=== PATIENT | male | born 1980 | race Caucasian/White ===

== ENCOUNTER 2025-04-25 16:24 | Inpatient (IN) ==
--- NOTE | 2025-04-25 17:25 | Emergency Department Note ---
Impression & Plan Fever and neutropenia, Neutropenia ED Provider Note NAME: CLAY [id number] MANSI AGE: 44 SEX: M : 1980 ARRIVES VIA: Walk-In INFORMANT: Patient, ED PROVIDER(S): Jose Geronimo DO CHIEF COMPLAINT: Fever HPI: The patient is a 44-year-old male who presented to the emergency department for an evaluation of low white blood cell count. The patient has a history of head neck cancer. He last received chemotherapy the beginning of the month. He had labs and it showed that he had a low white blood cell count. He presented to the emergency department for further evaluation. The patient does describe some dysphagia. He denies having any abdominal pain. He does describe some chest pain. ROS: See above HPI for pertinent positives & negatives. A total of 10 systems reviewed and were otherwise negative. PAST MEDICAL HISTORY: See Below PAST SURGICAL HISTORY: See Below FAMILY HISTORY: See Below SOCIAL HISTORY: See Below HOME MEDICATIONS: See Below ALLERGIES: See Below VITALS: See Below PHYSICAL EXAMINATION: GENERAL: Patient is awake alert in no acute distress patient is resting comfortably and showing no signs of anxiety EYES: The conjunctivae are clear. The pupils are round and reactive. EARS, NOSE, MOUTH AND THROAT: The nose is without any evidence of any deformity. Mucous membranes are moist. Tongue is midline. NECK: The neck is nontender and supple. RESPIRATORY: Normal respiratory effort is noted there is no evidence of wheezing rhonchi or rales CARDIOVASCULAR: Regular rate and rhythm noted there no murmurs rubs or gallops normal S1 normal S2. GASTROINTESTINAL: The abdomen is soft. Abdomen is nontender. MUSCULOSKELETAL/EXTREMITIES: There is no evidence of gross deformity full range of motion is noted in the hips and shoulders. SKIN: There is no obvious evidence of any rash. There are no petechiae, pallor or cyanosis noted. NEUROLOGIC: Patient is awake alert and oriented x3. MEDICAL DECISION MAKING: The patient is a 44-year-old male who presented to the emergency department for an evaluation of febrile illness. The patient has a history of head neck cancer which is being treated with chemotherapy. His last chemotherapy treatment was at the beginning of the month. The patient did have outpatient labs done and was sent to the emergency department because of his low white count. The patient was treated with IV antibiotics in the emergency department. He was reevaluated multiple times. The patient was not septic at my time of evaluation. Given the risks of neutropenia and fever I [facility] have agreed to evaluate the patient in the emergency department for further management and disposition. Triage Nursing notes reviewed. Prior medical records reviewed Vital Signs: reviewed and remarkable for no significant abnormalities Differential diagnosis: Viral syndrome, otitis, pharyngitis, pneumonia, influenza, meningitis, urinary tract infection, sepsis, bacteremia, as well as other pathologies. ER treatment provided: See below Diagnostics interpreted by me: ECG: EKG was obtained in the emergency department. My interpretation is normal sinus rhythm at 82 bpm. There is no ectopy. There is no acute ST segment abnormalities noted. No previous tracing was available. Cardiac Monitoring: An order was placed for continuous cardiac monitoring. The monitor shows a rate of 81 bpm with sinus rhythm. Laboratory studies: As stated above and show below. Imaging studies: See below. Radiographic imaging was reviewed by myself Consultation(s): I discussed this case with Dr. Engel who [facility]. Past Med/Surg History Problem List (Updated 04/25/25 @ 23:43 by Jose Geronimo DO) Fever and neutropenia (Acute) Neutropenia (Acute) Medical History Diabetes Hypertension 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 Social History Smoking Status: Never smoker Preferred Language: Yoruba Feels Safe at Home: Yes Allergies Allergies Allergy/AdvReac Type Severity Reaction Status Date / Time No Known Allergies Allergy Verified 04/25/25 17:40 Home Meds Home Medications Medication Instructions Recorded Confirmed acetaminophen 500 mg tablet 500 mg PO TID PRN Pain 01/14/25 04/25/25 (Tylenol Extra Strength) ascorbic acid (vitamin C) 500 mg 500 mg PO DAILY 01/14/25 04/25/25 tablet (Vitamin C) aspirin 81 mg tablet,delayed 81 mg PO DAILY 01/14/25 04/25/25 release atorvastatin 80 mg tablet 80 mg PO DAILY 01/14/25 04/25/25 clopidogrel 75 mg tablet (Plavix) 75 mg PO DAILY 01/14/25 04/25/25 cyanocobalamin (vitamin B-12) 500 500 mcg PO DAILY 01/14/25 04/25/25 mcg tablet (Vitamin B-12) glipizide 5 mg tablet 5 mg PO BID 01/14/25 04/25/25 losartan 100 mg tablet 100 mg PO DAILY 01/14/25 04/25/25 metformin 1,000 mg tablet 1,000 mg PO BID 01/14/25 04/25/25 metoprolol tartrate 50 mg tablet 50 mg PO BID 01/14/25 04/25/25 allopurinol 300 mg tablet 300 mg PO BID 04/25/25 04/25/25 loperamide 2 mg tablet (Diamode) 2 mg PO ONCE 04/25/25 04/25/25 omeprazole 20 mg capsule,delayed 20 mg PO BID 04/25/25 04/25/25 release ondansetron 4 mg disintegrating 8 mg PO BID PRN NAUSEA/VOMITING 04/25/25 04/25/25 tablet prednisone 20 mg tablet 100 mg PO DAILY PRN PER CANCER CARE 04/25/25 04/25/25 prochlorperazine maleate 10 mg 10 mg PO QID PRN NAUSEA/VOMITING 04/25/25 04/25/25 tablet (Compazine) Results & Data (ED) Vital Signs Vital Signs - 24 hr 04/25/25 16:27 04/25/25 17:30 04/25/25 17:34 Temperature 37.7 C H Temperature Source Oral Pulse Rate 92 H 84 96 H Pulse Rate [Apical] Pulse Rate from SpO2 Sensor Pulse Rhythm Regular Respiratory Rate 19 19 18 Respiratory Effort / Characteristics Respiratory Depth Respiratory Pattern Blood Pressure 147/89 H 124/87 Blood Pressure [Left Arm] Blood Pressure Mean 108 95 Blood Pressure Mean [Left Arm] Blood Pressure Position [Left Arm] Pulse Oximetry 98 98 Oxygen Delivery Method Room Air Room Air Sepsis Recent Fever Within 48 Hours No Sepsis New/Unexplained Change in Mental Status N/A Sepsis Action Taken by Nursing No Action Required 04/25/25 17:36 04/25/25 17:45 04/25/25 18:00 Temperature Temperature Source Pulse Rate 84 82 Pulse Rate [Apical] Pulse Rate from SpO2 Sensor 81 Pulse Rhythm Respiratory Rate 14 Respiratory Effort / Characteristics Respiratory Depth Respiratory Pattern Blood Pressure 128/86 127/86 Blood Pressure [Left Arm] Blood Pressure Mean 98 99 Blood Pressure Mean [Left Arm] Blood Pressure Position [Left Arm] Pulse Oximetry 94 Oxygen Delivery Method Room Air Sepsis Recent Fever Within 48 Hours Sepsis New/Unexplained Change in Mental Status Sepsis Action Taken by Nursing 04/25/25 18:15 04/25/25 18:30 04/25/25 19:15 Temperature Temperature Source Pulse Rate 80 80 Pulse Rate [Apical] 81 Pulse Rate from SpO2 Sensor 79 82 Pulse Rhythm Respiratory Rate 17 19 20 Respiratory Effort / Characteristics Non-Labored Spontaneous Respiratory Depth Normal Respiratory Pattern Regular Blood Pressure 130/84 132/97 Blood Pressure [Left Arm] 134/86 Blood Pressure Mean 101 107 Blood Pressure Mean [Left Arm] 102 Blood Pressure Position [Left Arm] Semi-fowlers Pulse Oximetry 99 100 97 Oxygen Delivery Method Room Air Room Air Room Air Sepsis Recent Fever Within 48 Hours Sepsis New/Unexplained Change in Mental Status Sepsis Action Taken by Longterm Medications Current Medication List: was personally reviewed by me Laboratory Data Attestation: I reviewed the patient's lab results. 04/25/25 17:44 04/25/25 17:44 Lab Results 04/25/25 04/25/25 Range/Units 17:44 17:50 WBC 1.25 L (4.8-10.8) K/ul RBC 3.42 L (4.70-6.10) M/uL Hgb 10.7 L (14.0-18.0) g/dl Hct 31.2 L (42.0-52.0) % MCV 91.2 (80.0-100.0) fL MCH 31.3 (25.0-34.0) pg MCHC 34.3 (32.0-36.0) g/dL RDW Std Deviation 55.4 H (36.4-46.3) fL RDW Coeff of Marguerite 16.8 H (11.5-14.5) % Plt Count 243 (130-400) K/uL MPV 9.8 (9.4-12.4) fL Immature Gran % (Auto) 0.0 % Neut % (Auto) 19.2 % Lymph % (Auto) 30.4 % Letcher % (Auto) 48.0 % Eos % (Auto) 1.6 % Baso % (Auto) 0.8 % Neut # (Auto) 0.24 L* (1.40-6.50) K/uL Lymph # (Auto) 0.38 L (1.20-3.40) K/uL Letcher # (Auto) 0.60 H (0.11-0.59) K/uL Eos # (Auto) 0.02 (0.00-0.50) K/uL Baso # (Auto) 0.01 (0.00-0.20) K/uL Immature Gran # (Auto) 0.00 L (0.01-0.20) K/uL PT 10.6 (9.0-12.0) Seconds INR 1.0 (0.9-1.1) APTT 30 (21-31) Seconds PTT Ratio 1.1 Sodium 134 L (136-145) mmol/L Potassium 3.5 (3.5-5.1) mmol/L Chloride 99 (98-107) mmol/L Carbon Dioxide 27 (21-32) mmol/L Anion Gap 8 (3-11) BUN 14 (6-23) mg/dl Creatinine 0.77 (0.6-1.4) mg/dl Est Cr Clr Drug Dosing 152.8 ml/min eGFR 112.51 BUN/Creatinine Ratio 18.2 (10-20) Glucose 126 H (70-99(Fasting)) mg/dl Lactate 1.3 (0.4-2.0) mmol/L Calcium 9.1 (8.6-10.3) mg/dl Magnesium 1.6 L (1.7-2.4) mg/dl Total Bilirubin 0.5 (0.2-1.0) mg/dl Direct Bilirubin 0.0 (0-0.2) mg/dl AST 26 (13-39) U/L ALT 24 (7-52) U/L Alkaline Phosphatase 82 (34-104) U/L Troponin I High Sens 10.2 (0-20) pg/ml Total Protein 8.3 (6.0-8.3) gm/dl Albumin 3.9 (3.4-5.0) gm/dl Procalcitonin 0.07 (0-0.5) ng/ml SARS-CoV-2 (PCR) NEGATIVE (Negative) Influenza Type A (PCR) Negative (Neg) Influenza Type B (PCR) Negative (Neg) RSV (RT-PCR) Negative (Neg) Administered Medications Allopurinol (Allopurinol 300 Mg Tab) 300 mg PO BID YOLETTE Stop: 05/25/25 22:02 Last Admin: 06/21/25 23:33 Dose: 300 mg Documented By: MORRIS Heparin Sodium (Porcine) (Heparin Sod 5,000 Unit/0.5 Ml Vial) 5,000 units SQ Q8 YOLETTE Stop: 05/25/25 21:59 Last Admin: 04/25/25 23:40 Dose: Not Given Documented By: MORRIS Pantoprazole Sodium (Protonix) 40 mg in 10 mls @ 5 mls/min IV BID YOLETTE Stop: 05/25/25 22:02 Last Admin: 04/25/25 23:32 Dose: 5 mls/min Documented By: MORRIS Insulin Glargine (Lantus Per Unit Charge) 10 units SQ BID YOLETTE Stop: 05/25/25 22:02 Last Admin: 04/25/25 22:50 Dose: Not Given Documented By: MORRIS Lidocaine HCl (Lidocaine Viscous 2% 15 Ml Udc) 15 ml MT Q8H YOLETTE Stop: 05/25/25 20:14 Last Admin: 04/25/25 22:45 Dose: 15 ml Documented By: MORRIS Metoprolol Tartrate (Metoprolol Tartrate 50 Mg Tab) 50 mg PO BID YOLETTE Stop: 05/25/25 22:02 Last Admin: 04/25/25 23:33 Dose: 50 mg Documented By: MORRIS Nystatin (Nystatin 500,000 Unit Tab) 500,000 units PO QID YOLETTE Stop: 05/25/25 20:59 Last Admin: 04/25/25 22:45 Dose: 500,000 units Documented By: MORRIS Discontinued Medications Al Hydrox/Mg Hydrox/Simethicone (Aluminum/Magnesium Susp 30 Ml Udc) 30 ml PO NOW STA Stop: 04/25/25 17:08 Last Admin: 04/25/25 17:53 Dose: 30 ml Documented By: TESS Sodium Chloride (Nss) 1,000 mls @ 999 mls/hr IV .Q1H1M ONE Stop: 04/25/25 18:07 Last Infusion: 04/25/25 18:58 Dose: Infused Documented By: Admin: 04/25/25 17:52 Dose: 999 mls/hr Documented By: TESS Cefepime HCl (Maxipime 2000mg) 2,000 mg in 20 mls @ 5 mls/min IV NOW STA; Protocol Stop: 04/25/25 18:08 Last Admin: 04/25/25 18:26 Dose: 5 mls/min Documented By: TESS Vancomycin HCl 2,250 mg/ (Sodium Chloride) 545 mls @ 200 mls/hr IV NOW ONE Stop: 04/25/25 22:44 Last Infusion: 04/25/25 23:25 Dose: 0 mls/hr Documented By: Admin: 04/25/25 21:06 Dose: 200 mls/hr Documented By: MARY Piperacillin Sod/Tazobactam Sod (Zosyn) 4.5 gm in 100 mls @ 200 mls/hr IV NOW STA; Protocol Stop: 04/25/25 20:48 Last Infusion: 04/25/25 23:25 Dose: Infused Documented By: Admin: 04/25/25 22:45 Dose: 200 mls/hr Documented By: MORRIS Ioversol (Optiray 320 100ml) 92 ml IV ONCE ONE Stop: 04/25/25 20:05 Last Admin: 04/25/25 20:04 Dose: 92 ml Documented By: FLETCHER Imaging Data Attestation: I personally reviewed and interpreted this imaging study as follows: My Impression: 1 view chest x-ray was obtained in the emergency department. My interpretation is no definite infiltrate or free air, final report below. Radiologist's Impression: Chest X-Ray 04/25/25 17:07 Exam: Portable chest. History: Sepsis. Comparison: Scalp view from CT dated December 26, 2024 Findings: Right chest port catheter. There is a nodular density projecting over the peripheral superior lateral aspect of the right lung field. Suspect something outside the patient. Cardiomediastinal silhouette is within normal limits. Pulmonary vasculature is within normal limits. Prominent nonspecific perihilar and infrahilar interstitial markings. No consolidation or appreciated pleural disease. Impression: 1.Nodular density projecting over the right superior lateral lung field questionably representing something outside the patient. Correlate with clinical data. Pulmonary nodule cannot be excluded on the single view exam. 2. Otherwise no acute process. Electronically signed by Eric Ludwig 04-25-2025 6:21 PM KUB X-Ray 04/25/25 17:07 Exam: KUB. History: Abdominal pain. Comparison:None. Findings: Likely button artifact projecting over the midline lower pelvis. Upper abdomen not included on this exam. Calcification projecting over the left abdomen. Small left renal calculus not excluded. Likely pelvic phleboliths. Impression: Question inferior left renal pole calculus. No appreciated acute process. Electronically signed by Eric Ludwig 04-25-2025 6:[address] 04/25/25 19:12 Exam(s): CT CHEST Without Contrast EXAM: CT Chest Without Intravenous Contrast CLINICAL HISTORY: Reason for exam: RULE OUT MASS. TECHNIQUE: Axial computed tomography images of the chest without intravenous contrast. CTDI is 21 mGy and DLP is 732 mGy-cm. Automated exposure control was utilized for the study. A dose lowering technique was utilized adhering to the principles of ALARA. COMPARISON: 12/26/[address] FINDINGS: Lungs: No consolidation or interstitial edema. No suspicious lesion. Pleural space: No pleural effusion or pneumothorax. Heart: Unremarkable. Bones/joints: No acute findings. Soft tissues: Previously visualized soft tissue mass in the left supraclavicular area measures 2.3 x 1.5 cm (series 2 image 1), previously 8.0 x 0.0 cm. Vasculature: Unremarkable. Lymph nodes: No adenopathy.. Tubes, lines and devices: Port-A-Cath in place. IMPRESSION: Previously visualized soft tissue mass in the left supraclavicular area measures 2.3 x 1.5 cm, previously 8.0 x 0.0 cm. Electronically signed by: Candelario Akers MD 04/25/25 20:37 PM Discharge Plan Visit Data Chief Complaint: Abnormal Labs/Diagnostic Testing Stated Complaint: LOW WBC COUNT ED Provider: Jose Geronimo Discharge Problem: Fever and neutropenia, Neutropenia Patient Disposition: Admitted As Inpatient Condition: Fair Discharge Instructions Interventions: ED Discharge Assessment Last Done: 04/25/25 21:34
[2025-04-25] MEDS: SODIUM CHLORIDE 0.9% 1,000 ML IV ONE (17:52)
[2025-04-25] MEDS: ALUMINUM/MAGNESIUM SUSP 30 ML UDC PO STA (17:53)
[2025-04-25 18:03] LABS: Hematocrit (blood only) 31.2 % (42.0-52.0); Hemoglobin 10.7 g/dl (14.0-18.0); Mean Corpuscular Hemoglobin 31.3 pg (25.0-34.0); Mean Corpuscular Hgb Conc 34.3 g/dL (32.0-36.0); Mean Corpuscular Volume 91.2 fL (80.0-100.0); Mean Platelet Volume 9.8 fL (9.4-12.4); Platelet Count 243 K/uL (130-400); RDW Coefficient of Variation 16.8 % (11.5-14.5); RDW Standard Deviation 55.4 fL (36.4-46.3); Red Blood Count 3.42 M/uL (4.70-6.10); White Blood Count 1.25 K/ul (4.8-10.8)
--- NOTE | 2025-04-25 18:22 | XRay Report ---
Exam: Portable chest. History: Sepsis. Comparison: Scalp view from CT dated December 26, 2024 Findings: Right chest port catheter. There is a nodular density projecting over the peripheral superior lateral aspect of the right lung field. Suspect something outside the patient. Cardiomediastinal silhouette is within normal limits. Pulmonary vasculature is within normal limits. Prominent nonspecific perihilar and infrahilar interstitial markings. No consolidation or appreciated pleural disease. Impression: 1.Nodular density projecting over the right superior lateral lung field questionably representing something outside the patient. Correlate with clinical data. Pulmonary nodule cannot be excluded on the single view exam. 2. Otherwise no acute process. Electronically signed by Eric Ludwig 04-25-2025 6:21 PM
[2025-04-25 18:24] LABS: Albumin Level 3.9 gm/dl (3.4-5.0); BUN Creatinine Ratio 18.2 (10-20); Bilirubin,Total 0.5 mg/dl (0.2-1.0); Calcium 9.1 mg/dl (8.6-10.3); Creatinine Clr Calc Pharmacy 152.8 ml/min; Magnesium 1.6 mg/dl (1.7-2.4); Potassium 3.5 mmol/L (3.5-5.1); Total Protein 8.3 gm/dl (6.0-8.3)
--- NOTE | 2025-04-25 18:25 | XRay Report ---
Exam: KUB. History: Abdominal pain. Comparison:None. Findings: Likely button artifact projecting over the midline lower pelvis. Upper abdomen not included on this exam. Calcification projecting over the left abdomen. Small left renal calculus not excluded. Likely pelvic phleboliths. Impression: Question inferior left renal pole calculus. No appreciated acute process. Electronically signed by Eric Ludwig 04-25-2025 6:25 PM
[2025-04-25] MEDS: CEFEPIME 2000MG 2,000 MG/20 ML SYR IV STA (18:26)
[2025-04-25 18:30] LABS: Troponin I High Sensitivity 10.2 pg/ml (0-20)
[2025-04-25 18:36] LABS: Partial Thromboplastin Ratio 1.1; Partial Thromboplastin Time 30 Seconds (21-31); Prothrombin Time 10.6 Seconds (9.0-12.0)
[2025-04-25 18:51] LABS: Basophils # (auto) 0.01 K/uL (0.00-0.20); Basophils % (auto) 0.8 %; Eosinophils # (auto) 0.02 K/uL (0.00-0.50); Eosinophils % (auto) 1.6 %; Lymphocytes # (auto) 0.38 K/uL (1.20-3.40); Lymphocytes % (auto) 30.4 %; Neutrophils # (auto) 0.24 K/uL (1.40-6.50); Neutrophils % (auto) 19.2 %
[2025-04-25 18:55] LABS: Influenza A virus by PCR Negative (Neg); Influenza B virus by PCR Negative (Neg); RSV by PCR Negative (Neg); SARS CoV2 RNA(COVID-19) Ceph NEGATIVE (Negative)
--- NOTE | 2025-04-25 19:17 | History & Physical Report ---
Date of Service April 25, 2025 Assessment & Plan (1) Neutropenia: Plan Assessment/plan Febrile neutropenia Chemotherapy-induced neutropenia. 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 Reports pain during swallowing and substernal chest pain for last couple of days WBC count of 1.25 with ANC of 240 last lab work from 2 months ago showed hemoglobin of 8.2 and WBC count of 5.3. Patient underwent chest x-ray which showed nodular density projecting over right superior lateral lung field. KUB did not show acute process. Obtain urinalysis, blood culture, CT chest/face for infectious workup Will continue vancomycin and cefepime; follow up on infectious work up Obtain GI evaluation given odynophagia associated with neutropenia. Will start lidocaine viscous and nystatin solution scheduled. Type 2 diabetes mellituscontinue on insulin Hyperlipidemiacontinue on rosuvastatin History of CADcontinue on aspirin, Plavix hypertension continue on metoprolol, losartan Goutcontinue on allopurinol Full code DVT phylaxis heparin Time spent evaluating patient, direct bedside care, chart review, placing orders, interpretation of diagnostic studies, discussion with consultants, patient, and family members, as well as other required patient management activities is 75 minutes Please note the above document was generated using voice recognition software. It may contain grammatical, syntax or spelling errors. Any formal questions or concerns about the content, text or information contained within the body of this dictation should be directly addressed to the provider for clarification History of Present Illness Primary Care Provider: KELLI Guzman History obtained from chart review and interview with the patient. Patient had presented to the [facility] in January 2025; was transferred to [facility] after he was found to have enlargement and progression of the neck mass. Patient was seen by ENT at that time who performed FNAC. It was positive for CD30 positive lymphoma. CT abdomen pelvis at that time did not show any lymphadenopathy or metastatic disease in pelvis/abdomen. He also underwent bone marrow biopsy to complete his staging with no evidence of lymphoma. Patient received CHOP (cyclophosphamide, doxorubicin, vinicristine, prednisone) while he was hospitalized. Patient's fever subsided after starting prednisone. Patient was then discharged out of the hospital on 02/03/2025. Patient follows up with [facility] and is receiving chemotherapy. Patient received his last chemotherapy on 04/09/2025. Patient reports that he has been feeling weak since last 2 days. He reports substernal chest pain; increases with swallowing. He reports pain on his left jaw as well since last 2 days; reports that he had a part of his tooth come out last night. He also reports couple of episode of nausea/vomiting; he denies sore throat, abdominal pain, change in bowel or bladder habit. On presentation to the ED, he was normotensive, saturating well in room air, temperature of 37.7 C, normotensive. He was found to have WBC count of 1.25, hemoglobin of 10.7; last lab work from 2 months ago showed hemoglobin of 8.2 and WBC count of 5.3. Patient underwent chest x-ray which showed nodular density projecting over right superior lateral lung field. KUB did not show acute process. Patient was given cefepime and was referred for admission. Allergies Allergy/AdvReac Type Severity Reaction Status Date / Time No Known Allergies Allergy Verified 04/25/25 17:40 Home Medications Medication Instructions Recorded Confirmed Type acetaminophen 500 mg tablet 500 mg PO TID PRN Pain 01/14/25 04/25/25 History (Tylenol Extra Strength) ascorbic acid (vitamin C) 500 mg 500 mg PO DAILY 01/14/25 04/25/25 History tablet (Vitamin C) aspirin 81 mg tablet,delayed 81 mg PO DAILY 01/14/25 04/25/25 History release atorvastatin 80 mg tablet 80 mg PO DAILY 01/14/25 04/25/25 History clopidogrel 75 mg tablet (Plavix) 75 mg PO DAILY 01/14/25 04/25/25 History cyanocobalamin (vitamin B-12) 500 500 mcg PO DAILY 01/14/25 04/25/25 History mcg tablet (Vitamin B-12) glipizide 5 mg tablet 5 mg PO BID 01/14/25 04/25/25 History losartan 100 mg tablet 100 mg PO DAILY 01/14/25 04/25/25 History metformin 1,000 mg tablet 1,000 mg PO BID 01/14/25 04/25/25 History metoprolol tartrate 50 mg tablet 50 mg PO BID 01/14/25 04/25/25 History allopurinol 300 mg tablet 300 mg PO BID 04/25/25 04/25/25 History loperamide 2 mg tablet (Diamode) 2 mg PO ONCE 04/25/25 04/25/25 History omeprazole 20 mg capsule,delayed 20 mg PO BID 04/25/25 04/25/25 History release ondansetron 4 mg disintegrating 8 mg PO BID PRN NAUSEA/VOMITING 04/25/25 04/25/25 History tablet prednisone 20 mg tablet 100 mg PO DAILY PRN PER CANCER CARE 04/25/25 04/25/25 History prochlorperazine maleate 10 mg 10 mg PO QID PRN NAUSEA/VOMITING 04/25/25 04/25/25 History tablet (Compazine) Past Med/Surg History Problem List (Updated 04/25/25 @ 20:13 by Roldan Engel MD) Neutropenia Medical History Diabetes Hypertension 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 Social History Smoking Status: Never smoker Preferred Language: Chinese Feels Safe at Home: Yes Physical Exam Physical Exam: On physical examination; Constitutional: WD/WN, vitals as above, NAD, sitting up in bed, pleasant, conversing easily Face; swelling in right cheek present; no overlying erythema. No oral lesions present Chest; port in place; no overlying erythema Respiratory: normal respiratory effort, lungs clear to auscultation, no wheeze, rales, rhonchi. Normal insp/exp effort, no accessory muscle use Cardiovascular: RRR, no murmur, no edema Vessels: no JVD or carotid bruit Chest: normal inspection of chest Abdomen: normal bowel sounds, soft, nontender, no hepatosplenomegaly Musculoskeletal: no cyanosis or clubbing, extremities motor strength 5/5 Skin: no rashes, warm and dry normal turgor Neurologic: PERRL, EOMI, accommodation nl, no face palsy, no dysarthria CN's II- XI intact bilaterally and moves all extremities Psychiatric: A+Ox3, euthymic affect Results & Data Results & Data Vital Signs (Past 12 Hours) Vital Signs Temp Pulse Resp BP Pulse Ox O2 Del Method 04/25/25 18:30 80 19 132/97 100 Room Air 04/25/25 18:15 80 17 130/84 99 Room Air 04/25/25 18:00 82 14 127/86 94 Room Air 04/25/25 17:45 128/86 04/25/25 17:36 84 04/25/25 17:34 96 H 18 124/87 04/25/25 17:30 84 19 98 Room Air 04/25/25 16:27 37.7 C H 92 H 19 147/89 H 98 Room Air
[2025-04-25] MEDS ORDERED: ALUMINUM/MAGNESIUM SUSP 30 ML UDC PO PRN (20:01)
[2025-04-25] MEDS ORDERED: POLYETHYLENE (MIRALAX) 17 GM PACK PO PRN (20:01)
[2025-04-25] MEDS ORDERED: VANCOMYCIN CONSULT ACTIVE PRN (20:01)
[2025-04-25] MEDS: OPTIRAY 320 100ml IV ONE (20:04)
--- NOTE | 2025-04-25 20:38 | CT Scan Report ---
Exam(s): CT CHEST Without Contrast EXAM: CT Chest Without Intravenous Contrast CLINICAL HISTORY: Reason for exam: RULE OUT MASS. TECHNIQUE: Axial computed tomography images of the chest without intravenous contrast. CTDI is 21 mGy and DLP is 732 mGy-cm. Automated exposure control was utilized for the study. A dose lowering technique was utilized adhering to the principles of ALARA. COMPARISON: 12/26/[address] FINDINGS: Lungs: No consolidation or interstitial edema. No suspicious lesion. Pleural space: No pleural effusion or pneumothorax. Heart: Unremarkable. Bones/joints: No acute findings. Soft tissues: Previously visualized soft tissue mass in the left supraclavicular area measures 2.3 x 1.5 cm (series 2 image 1), previously 8.0 x 0.0 cm. Vasculature: Unremarkable. Lymph nodes: No adenopathy.. Tubes, lines and devices: Port-A-Cath in place. IMPRESSION: Previously visualized soft tissue mass in the left supraclavicular area measures 2.3 x 1.5 cm, previously 8.0 x 0.0 cm. Electronically signed by: Candelario Akers MD 04/25/25 20:37 PM
--- NOTE | 2025-04-25 20:52 | CT Scan Report ---
Exam(s): CT FACIAL With Contrast IV Amt: 92ml EXAM: CT Maxillofacial With Intravenous Contrast CLINICAL HISTORY: Reason for exam: right jaw pain. TECHNIQUE: Axial computed tomography images of the face with intravenous contrast. CTDI is 36.26 mGy and DLP is 704.51 mGy-cm. Automated exposure control was utilized for the study. A dose lowering technique was utilized adhering to the principles of ALARA. CONTRAST: Patient received 92ml of IV contrast COMPARISON: No relevant prior studies available. FINDINGS: Bones/joints: No acute fracture. We will appearance of the mandible and temporomandibular joints. Soft tissues: Unremarkable. Orbits: Unremarkable. Sinuses: Unremarkable. IMPRESSION: No acute abnormality. Electronically signed by: Candelario Akers MD 04/25/25 20:51 PM
[2025-04-25] MEDS: VANCOMYCIN HCL 2,250 MG in SODIUM CHLORIDE 0.9% 500 ML IV ONE (21:06)
[2025-04-25] MEDS ORDERED: GLUCAGON FOR INJ 1 MG VIAL SQ PRN (22:03)
[2025-04-25] MEDS ORDERED: GLUCOSE 10 TAB/TUBE PO PRN (22:03)
[2025-04-25] MEDS ORDERED: DEXTROSE 50% 50 ML SYRINGE IV PRN (22:03)
[2025-04-25] MEDS ORDERED: CARBOHYDRATES FOR HYPOGLYCEMIA PO PRN (22:03)
[2025-04-25] MEDS ORDERED: GLUCOSE 40% GEL 15 GM TUBE PO PRN (22:03)
[2025-04-25] MEDS: PIPERACILLIN/TAZOBACTAM 4.5 GM/100 ML BAG IV STA (22:45)
[2025-04-25] MEDS: NYSTATIN 500,000 UNIT TAB PO SCH (22:45)
[2025-04-25] MEDS: LIDOCAINE VISCOUS 2% 15 ML UDC MT SCH (22:45)
[2025-04-25] MEDS: LANTUS PER UNIT CHARGE SQ SCH (22:50)
[2025-04-25] MEDS: PANTOprazole 40 MG/10 ML SYR IV SCH (23:32)
[2025-04-25] MEDS: allopurinoL 300 MG TAB PO SCH (23:33)
[2025-04-25] MEDS: METOPROLOL TARTRATE 50 MG TAB PO SCH (23:33)
[2025-04-25] MEDS: HEPARIN SOD 5,000 UNIT/0.5 ML VIAL SQ SCH (23:40)
[2025-04-26] MEDS: INSULIN ASPART PER UNIT CHARGE SC SCH ×2 (00:21→12:03)
[2025-04-26] MEDS: PIPERACILLIN/TAZOBACTAM 4.5 GM/100 ML BAG IV SCH (04:51)
[2025-04-26] MEDS: VANCOMYCIN HCL 1,250 MG in SODIUM CHLORIDE 0.9% 250 ML IV SCH (06:31)
[2025-04-26 06:43] LABS: Hematocrit (blood only) 25.9 % (42.0-52.0); Hemoglobin 8.8 g/dl (14.0-18.0); Mean Corpuscular Hemoglobin 31.2 pg (25.0-34.0); Mean Corpuscular Volume 91.8 fL (80.0-100.0); Mean Platelet Volume 9.5 fL (9.4-12.4); Platelet Count 240 K/uL (130-400); RDW Coefficient of Variation 16.9 % (11.5-14.5); RDW Standard Deviation 56.6 fL (36.4-46.3); Red Blood Count 2.82 M/uL (4.70-6.10)
[2025-04-26 06:51] LABS: BUN Creatinine Ratio 14.6 (10-20); Calcium 8.7 mg/dl (8.6-10.3); Creatinine Clr Calc Pharmacy 143.5 ml/min; Potassium 3.5 mmol/L (3.5-5.1)
[2025-04-26 06:57] LABS: Appearance Urine Clear (Clear); Bilirubin Urine Negative (Negative); Blood Urine Negative (Negative); Color Urine Yellow; Glucose Urine UA Negative (Negative); Ketones Urine Negative (Negative); Leukocyte Esterase Urine Negative (Negative); Nitrite Urine Negative (Negative); Protein Urine 2+ (Negative); Specific Gravity Urine 1.015 (1.000-1.030); Urobilinogen Urine Negative (Negative)
[2025-04-26 07:13] LABS: Epithelial Cell Urine 0-2 /hpf (0-2); RBC Urine 0-2 /hpf (0-2); WBC Urine 0-5 /hpf (0-5)
[2025-04-26 07:14] LABS: Bacteria Urine None Seen (None Seen)
[2025-04-26 07:50] LABS: Echinocytes 1+; Ovalocytes 1+; Polychromasia 1+
[2025-04-26 07:52] LABS: Basophils # (auto) 0.01 K/uL (0.00-0.20); Basophils % (auto) 0.7 %; Eosinophils # (auto) 0.02 K/uL (0.00-0.50); Eosinophils % (auto) 1.4 %; Lymphocytes # (auto) 0.39 K/uL (1.20-3.40); Lymphocytes % (auto) 27.9 %; Monocytes # (auto) 0.63 K/uL (0.11-0.59); Neutrophils # (auto) 0.35 K/uL (1.40-6.50)
[2025-04-26] MEDS: ASPIRIN 81 MG ECTAB PO SCH (08:03)
[2025-04-26] MEDS: CLOPIDOGREL BISULFATE 75 MG TAB PO SCH (08:03)
[2025-04-26] MEDS: ATORVASTATIN 40 MG TAB PO SCH (08:03)
[2025-04-26] MEDS: ASCORBIC ACID 500 MG TAB PO SCH (08:03)
[2025-04-26] MEDS: CYANOCOBALAMIN (B-12) 500 MCG TABLET PO SCH (08:03)
--- NOTE | 2025-04-26 08:03 | Hospitalist Progress Note ---
Date of Service April 26, 2025 Assessment & Plan (1) Neutropenia: Plan Assessment/plan Febrile neutropenia Chemotherapy-induced neutropenia. 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 Reports pain during swallowing and substernal chest pain for last couple of days WBC count of 1.25 with ANC of 240 last lab work from 2 months ago showed hemoglobin of 8.2 and WBC count of 5.3. Patient underwent chest x-ray which showed nodular density projecting over right superior lateral lung field. KUB did not show acute process. UA - negat. Blood cultx -pending CT chest - IMPRESSION: Previously visualized soft tissue mass in the left supraclavicular area measures 2.3 x 1.5 cm, previously 8.0 x 0.0 cm. Will continue vancomycin and zosyn; follow up on infectious work up Recently pt broke his tooth - will consult w/ Dr. Lucille Christina/onc consulted Obtained GI evaluation given odynophagia associated with neutropenia. Started lidocaine viscous and nystatin solution scheduled on admission, will continue. Type 2 diabetes mellituscontinue on insulin Hyperlipidemiacontinue on rosuvastatin History of CADcontinue on aspirin, Plavix hypertension continue on metoprolol, losartan Goutcontinue on allopurinol Full code DVT phylaxis heparin Admission and Anticipated Discharge Date Admission Date: April 25, 2025 Subjective Pt seen in follow up of neutropenic fever Currently on vanco, zosyn, reported broken tooth on admission Currently pt is fairly comfortable, no shortness of breath, no abd. pain, has some issues swallowing but able to take PO No n/v, diarrhea Review of Systems Review of Systems: All systems reviewed & are unremarkable except as noted in Subjective Physical Exam Physical Exam: Constitutional: WD/WN, in NAD Chest; port in place; no overlying erythema Respiratory: normal respiratory effort, lungs clear to auscultation, no wheeze, rales, rhonchi. Cardiovascular: RRR, no murmur, no edema Abdomen: normal bowel sounds, soft, nontender Musculoskeletal: moves extremities Skin: no rashes, warm and dry Neurologic: PERRL, EOMI, no face palsy, no dysarthria, answers appropriately, moves all extremities Psychiatric: A+Ox3, euthymic affect Results & Data Results & Data Vital Signs (Past 12 Hours) Vital Signs Temp Pulse Pulse Pulse Resp BP BP 06/22/25 08:00 37.2 C 66 16 122/74 04/25/25 21:57 37.2 C 90 18 137/85 04/25/25 21:34 81 18 131/84 04/25/25 21:00 37.4 C 79 16 128/81 04/25/25 20:30 83 18 131/86 Pulse Ox O2 Del Method 04/26/25 08:00 95 Room Air 04/25/25 21:57 97 Room Air 04/25/25 21:34 96 Room Air 04/25/25 21:00 96 Room Air 04/25/25 20:30 98 Room Air Laboratory Results 04/26/25 04/26/25 04/26/25 Range/Units 06:43 05:55 05:51 WBC 1.40 L (4.8-10.8) K/ul RBC 2.82 L (4.70-6.10) M/uL Hgb 8.8 L (14.0-18.0) g/dl Hct 25.9 L (42.0-52.0) % MCV 91.8 (80.0-100.0) fL MCH 31.2 (25.0-34.0) pg MCHC 34.0 (32.0-36.0) g/dL RDW Std Deviation 56.6 H (36.4-46.3) fL RDW Coeff of Marguerite 16.9 H (11.5-14.5) % Plt Count 240 (130-400) K/uL MPV 9.5 (9.4-12.4) fL Immature Gran % (Auto) 0.0 % Neut % (Auto) 25.0 % Lymph % (Auto) 27.9 % [place]assen % (Auto) 45.0 % Eos % (Auto) 1.4 % Baso % (Auto) 0.7 % Neut # (Auto) 0.35 L* (1.40-6.50) K/uL Lymph # (Auto) 0.39 L (1.20-3.40) K/uL [place] # (Auto) 0.63 H (0.11-0.59) K/uL Eos # (Auto) 0.02 (0.00-0.50) K/uL Baso # (Auto) 0.01 (0.00-0.20) K/uL Immature Gran # (Auto) 0.00 L (0.01-0.20) K/uL Polychromasia 1+ Ovalocytes 1+ Echinocytes 1+ PT (9.0-12.0) Seconds INR (0.9-1.1) APTT (21-31) Seconds PTT Ratio Sodium 134 L (136-145) mmol/L Potassium 3.5 (3.5-5.1) mmol/L Chloride 100 (98-107) mmol/L Carbon Dioxide 27 (21-32) mmol/L Anion Gap 7 (3-11) BUN 12 (6-23) mg/dl Creatinine 0.82 (0.6-1.4) mg/dl Est Cr Clr Drug Dosing 143.5 ml/min eGFR 110.40 BUN/Creatinine Ratio 14.6 (10-20) Glucose 144 H (70-99(Fasting)) mg/dl POC Glucose 132 H (70-99) mg/dl Lactate (0.4-2.0) mmol/L Calcium 8.7 (8.6-10.3) mg/dl Magnesium (1.7-2.4) mg/dl Total Bilirubin (0.2-1.0) mg/dl Direct Bilirubin (0-0.2) mg/dl AST (13-39) U/L ALT (7-52) U/L Alkaline Phosphatase (34-104) U/L Troponin I High Sens (0-20) pg/ml Total Protein (6.0-8.3) gm/dl Albumin (3.4-5.0) gm/dl Procalcitonin (0-0.5) ng/ml Urine Color Yellow Urine Appearance Clear (Clear) Urine pH 7.0 (4.5-7.5) Ur Specific [place] 1.015 (1.000-1.030) Urine Protein 2+ H (Negative) Urine Glucose (UA) Negative (Negative) Urine Ketones Negative (Negative) Urine Blood Negative (Negative) Urine Nitrite Negative (Negative) Urine Bilirubin Negative (Negative) Urine Urobilinogen Negative (Negative) Ur Leukocyte Esterase Negative (Negative) Urine RBC 0-2 (0-2) /hpf Urine WBC 0-5 (0-5) /hpf Ur Epithelial Cells 0-2 (0-2) /hpf Urine Bacteria None Seen (None Seen) Urine Comment Nasal Screen MRSA (PCR) (Negative) SARS-CoV-2 (PCR) (Negative) Influenza Type A (PCR) (Neg) Influenza Type B (PCR) (Neg) RSV (RT-PCR) (Neg) 04/25/25 04/25/25 04/25/25 Range/Units 23:58 22:07 17:50 WBC (4.8-10.8) K/ul RBC (4.70-6.10) M/uL Hgb (14.0-18.0) g/dl Hct (42.0-52.0) % MCV (80.0-100.0) fL MCH (25.0-34.0) pg MCHC (32.0-36.0) g/dL RDW Std Deviation (36.4-46.3) fL RDW Coeff of Marguerite (11.5-14.5) % Plt Count (130-400) K/uL MPV (9.4-12.4) fL Immature Gran % (Auto) % Neut % (Auto) % Lymph % (Auto) % [place]assen % (Auto) % Eos % (Auto) % Baso % (Auto) % Neut # (Auto) (1.40-6.50) K/uL Lymph # (Auto) (1.20-3.40) K/uL [place] # (Auto) (0.11-0.59) K/uL Eos # (Auto) (0.00-0.50) K/uL Baso # (Auto) (0.00-0.20) K/uL Immature Gran # (Auto) (0.01-0.20) K/uL Polychromasia Ovalocytes Echinocytes PT (9.0-12.0) Seconds INR (0.9-1.1) APTT (21-31) Seconds PTT Ratio Sodium (136-145) mmol/L Potassium (3.5-5.1) mmol/L Chloride (98-107) mmol/L Carbon Dioxide (21-32) mmol/L Anion Gap (3-11) BUN (6-23) mg/dl Creatinine (0.6-1.4) mg/dl Est Cr Clr Drug Dosing ml/min eGFR BUN/Creatinine Ratio (10-20) Glucose (70-99(Fasting)) mg/dl POC Glucose 115 H (70-99) mg/dl Lactate (0.4-2.0) mmol/L Calcium (8.6-10.3) mg/dl Magnesium (1.7-2.4) mg/dl Total Bilirubin (0.2-1.0) mg/dl Direct Bilirubin (0-0.2) mg/dl AST (13-39) U/L ALT (7-52) U/L Alkaline Phosphatase (34-104) U/L Troponin I High Sens (0-20) pg/ml Total Protein (6.0-8.3) gm/dl Albumin (3.4-5.0) gm/dl Procalcitonin (0-0.5) ng/ml Urine Color Urine Appearance (Clear) Urine pH (4.5-7.5) Ur Specific [place] (1.000-1.030) Urine Protein (Negative) Urine Glucose (UA) (Negative) Urine Ketones (Negative) Urine Blood (Negative) Urine Nitrite (Negative) Urine Bilirubin (Negative) Urine Urobilinogen (Negative) Ur Leukocyte Esterase (Negative) Urine RBC (0-2) /hpf Urine WBC (0-5) /hpf Ur Epithelial Cells (0-2) /hpf Urine Bacteria (None Seen) Urine Comment Nasal Screen MRSA (PCR) Positive A (Negative) SARS-CoV-2 (PCR) NEGATIVE (Negative) Influenza Type A (PCR) Negative (Neg) Influenza Type B (PCR) Negative (Neg) RSV (RT-PCR) Negative (Neg) 04/25/25 Range/Units 17:44 WBC 1.25 L (4.8-10.8) K/ul RBC 3.42 L (4.70-6.10) M/uL Hgb 10.7 L (14.0-18.0) g/dl Hct 31.2 L (42.0-52.0) % MCV 91.2 (80.0-100.0) fL MCH 31.3 (25.0-34.0) pg MCHC 34.3 (32.0-36.0) g/dL RDW Std Deviation 55.4 H (36.4-46.3) fL RDW Coeff of Marguerite 16.8 H (11.5-14.5) % Plt Count 243 (130-400) K/uL MPV 9.8 (9.4-12.4) fL Immature Gran % (Auto) 0.0 % Neut % (Auto) 19.2 % Lymph % (Auto) 30.4 % [place] % (Auto) 48.0 % Eos % (Auto) 1.6 % Baso % (Auto) 0.8 % Neut # (Auto) 0.24 L* (1.40-6.50) K/uL Lymph # (Auto) 0.38 L (1.20-3.40) K/uL [place] # (Auto) 0.60 H (0.11-0.59) K/uL Eos # (Auto) 0.02 (0.00-0.50) K/uL Baso # (Auto) 0.01 (0.00-0.20) K/uL Immature Gran # (Auto) 0.00 L (0.01-0.20) K/uL Polychromasia Ovalocytes Echinocytes PT 10.6 (9.0-12.0) Seconds INR 1.0 (0.9-1.1) APTT 30 (21-31) Seconds PTT Ratio 1.1 Sodium 134 L (136-145) mmol/L Potassium 3.5 (3.5-5.1) mmol/L Chloride 99 (98-107) mmol/L Carbon Dioxide 27 (21-32) mmol/L Anion Gap 8 (3-11) BUN 14 (6-23) mg/dl Creatinine 0.77 (0.6-1.4) mg/dl Est Cr Clr Drug Dosing 152.8 ml/min eGFR 112.51 BUN/Creatinine Ratio 18.2 (10-20) Glucose 126 H (70-99(Fasting)) mg/dl POC Glucose (70-99) mg/dl Lactate 1.3 (0.4-2.0) mmol/L Calcium 9.1 (8.6-10.3) mg/dl Magnesium 1.6 L (1.7-2.4) mg/dl Total Bilirubin 0.5 (0.2-1.0) mg/dl Direct Bilirubin 0.0 (0-0.2) mg/dl AST 26 (13-39) U/L ALT 24 (7-52) U/L Alkaline Phosphatase 82 (34-104) U/L Troponin I High Sens 10.2 (0-20) pg/ml Total Protein 8.3 (6.0-8.3) gm/dl Albumin 3.9 (3.4-5.0) gm/dl Procalcitonin 0.07 (0-0.5) ng/ml Urine Color Urine Appearance (Clear) Urine pH (4.5-7.5) Ur Specific [place] (1.000-1.030) Urine Protein (Negative) Urine Glucose (UA) (Negative) Urine Ketones (Negative) Urine Blood (Negative) Urine Nitrite (Negative) Urine Bilirubin (Negative) Urine Urobilinogen (Negative) Ur Leukocyte Esterase (Negative) Urine RBC (0-2) /hpf Urine WBC (0-5) /hpf Ur Epithelial Cells (0-2) /hpf Urine Bacteria (None Seen) Urine Comment Nasal Screen MRSA (PCR) (Negative) SARS-CoV-2 (PCR) (Negative) Influenza Type A (PCR) (Neg) Influenza Type B (PCR) (Neg) RSV (RT-PCR) (Neg) Medications Administered Current Inpatient Medications Acetaminophen (Acetaminophen 325 Mg Tab) 650 mg PO Q4H PRN PRN Reason: pain/fever Stop: 05/25/25 20:00 Al Hydrox/Mg Hydrox/Simethicone (Aluminum/Magnesium Susp 30 Ml Udc) 30 ml PO Q6H PRN PRN Reason: Dyspepsia Stop: 05/25/25 20:00 Allopurinol (Allopurinol 300 Mg Tab) 300 mg PO BID YOLETTE Stop: 05/25/25 22:02 Last Admin: 04/25/25 23:33 Dose: 300 mg Ascorbic Acid (Ascorbic Acid 500 Mg Tab) 500 mg PO DAILY YOLETTE Stop: 05/26/25 08:59 Aspirin (Aspirin 81 Mg Ectab) 81 mg PO DAILY YOLETTE Stop: 05/26/25 08:59 Atorvastatin Calcium (Atorvastatin 40 Mg Tab) 80 mg PO DAILY YOLETTE Stop: 05/26/25 08:59 Clopidogrel Bisulfate (Clopidogrel Bisulfate 75 Mg Tab) 75 mg PO DAILY YOLETTE Stop: 05/26/25 08:59 Cyanocobalamin (Cyanocobalamin (B-12) 500 Mcg Tablet) 500 mcg PO DAILY YOLETTE Stop: 05/26/25 08:59 Dextrose (Dextrose 50% 50 Ml Syringe) 25 - 50 ml IV UD PRN; Protocol PRN Reason: Hypoglycemia Protocol Stop: 05/25/25 22:02 Glucagon (Glucagon For Inj 1 Mg Vial) 1 mg SQ UD PRN; Protocol PRN Reason: Hypoglycemia Protocol Stop: 05/25/25 22:02 Glucose (Glucose 40% Gel 15 Gm Tube) 15 - 30 gm PO UD PRN; Protocol PRN Reason: Hypoglycemia Protocol Stop: 05/25/25 22:02 Glucose (Glucose 10 Tab/Tube) 4 - 8 tab PO UD PRN; Protocol PRN Reason: Hypoglycemia Protocol Stop: 05/25/25 22:02 Heparin Sodium (Porcine) (Heparin Sod 5,000 Unit/0.5 Ml Vial) 5,000 units SQ Q8 YOLETTE Stop: 05/25/25 21:59 Last Admin: 04/26/25 04:24 Dose: Not Given Piperacillin Sod/Tazobactam Sod (Zosyn) 4.5 gm in 100 mls @ 25 mls/hr IV Q8H [facility]; Protocol Stop: 05/06/25 00:29 Last Admin: 04/26/25 04:51 Dose: 25 mls/hr Pantoprazole Sodium (Protonix) 40 mg in 10 mls @ 5 mls/min IV BID YOLETTE Stop: 05/25/25 22:02 Last Admin: 04/25/25 23:32 Dose: 5 mls/min Vancomycin HCl 1,250 mg/ (Sodium Chloride) 275 mls @ 200 mls/hr IV Q8H [facility] Stop: 04/28/25 05:59 Last Infusion: 04/26/25 07:59 Dose: Infused Insulin Aspart (Insulin Aspart Per Unit Charge) 0 units SC Q6 YOLETTE Stop: 05/26/25 00:00 Last Admin: 04/26/25 06:08 Dose: Not Given Insulin Glargine (Lantus Per Unit Charge) 10 units SQ BID YOLETTE Stop: 05/25/25 22:02 Last Admin: 04/25/25 22:50 Dose: Not Given Lidocaine HCl (Lidocaine Viscous 2% 15 Ml Udc) 15 ml MT Q8H [facility] Stop: 05/25/25 20:14 Last Admin: 04/26/25 04:24 Dose: Not Given Losartan Potassium (Losartan Potassium 50 Mg Tab) 100 mg PO DAILY YOLETTE Stop: 05/26/25 08:59 Metoprolol Tartrate (Metoprolol Tartrate 50 Mg Tab) 50 mg PO BID [facility] Stop: 05/25/25 22:02 Last Admin: 04/25/25 23:33 Dose: 50 mg Miscellaneous (Carbohydrates For Hypoglycemia ) 15 - 30 gm PO UD PRN PRN Reason: Hypoglycemia Protocol Stop: 05/25/25 22:02 Miscellaneous Information (Vancomycin Consult Active) 1 each N/A UD PRN PRN Reason: Consult Stop: 05/25/25 20:00 Nystatin (Nystatin 500,000 Unit Tab) 500,000 units PO QID YOLETTE Stop: 05/25/25 20:59 Last Admin: 04/25/25 22:45 Dose: 500,000 units Polyethylene Glycol (Polyethylene (Miralax) 17 Gm Pack) 17 gm PO DAILY PRN PRN Reason: Constipation Stop: 05/25/25 20:00
[2025-04-26] MEDS: LOSARTAN POTASSIUM 50 MG TAB PO SCH (08:04)
--- NOTE | 2025-04-26 08:59 | Pharmacy Report ---
Pharmacy PK ABX Note - Date of Service April 26, 2025 - Assessment and Plan Assessment 44 year old M receiving vancomycin/zosyn for empiric treatment of febrile neutropenia. Patient has a history of lymphoma currently on chemotherapy. Pertinent microbiologic data includes: Positive MRSA Nasal Swab, blood cultures pending. Vancomycin currently ordered x 48 hours. Plan Vancomycin * Loading dose:2250 mg IV x 1 * Maintenance dose: 1250 mg IV every 8 hours * Regimen is predicted to achieve target AUC/TRAVIS of 400-600 mg/L.hr * Random level ordered for 04/27@ 1100 Pharmacy will continue to follow and will adjust dose/frequency as necessary. Thank you. Pharmacy has transitioned to AUC monitoring for vancomycin. AUC/TRAVIS is the preferred PK/PD target and is associated with decreased risk of nephrotoxicity compared to traditional trough targets.
--- NOTE | 2025-04-26 09:16 | Gastrointestinal Consultation ---
Date of Consultation April 26, 2025 Assessment & Plan (1) Odynophagia: He has odynophagia and neutropenia--ANC today is 350. Most likely he has esophageal candidiasis and he has rightfully been put on nystatin suspension. He certainly could have herpetic esophagitis or CMV esophagitis but that is usually more painful than he is describing. I do not want to attempt EGD with absolute neutropenia for risk of causing worsening infection. Would continue treatment as you are doing and follow clinically. If he improves then we won't need to do testing. If he doesn't improve and his neutropenia improves then we can consider EGD. he would like to try regular diet so I will advance. History of Present Illness Reason for Consultation: burning with swallowing Attending Physician: Rip Kearney MD History of Present Illness 44 year old inmate who is here with neutropenia and burning pain with swallowing. He was diagnosed with lymphoma in January and has been undergoing treatment for that. He tells me that 3-4 days ago he developed a burning pain when he swallows. The pain seems to come and go when not swallowing. He has not noticed any oral rash or ulcerations. he does take a number of medications as listed below and he does take ASA daily for his CAD. He tells me he takes his meds with enough water to make them go down but not a full glass. Admit ANC was 240. Allergies Allergy/AdvReac Type Severity Reaction Status Date / Time No Known Allergies Allergy Verified 04/25/25 17:40 Home Medications Medication Instructions Recorded Confirmed Type acetaminophen 500 mg tablet 500 mg PO TID PRN Pain 01/14/25 04/25/25 History (Tylenol Extra Strength) ascorbic acid (vitamin C) 500 mg 500 mg PO DAILY 01/14/25 04/25/25 History tablet (Vitamin C) aspirin 81 mg tablet,delayed 81 mg PO DAILY 01/14/25 04/25/25 History release atorvastatin 80 mg tablet 80 mg PO DAILY 01/14/25 04/25/25 History clopidogrel 75 mg tablet (Plavix) 75 mg PO DAILY 01/14/25 04/25/25 History cyanocobalamin (vitamin B-12) 500 500 mcg PO DAILY 01/14/25 04/25/25 History mcg tablet (Vitamin B-12) glipizide 5 mg tablet 5 mg PO BID 01/14/25 04/25/25 History losartan 100 mg tablet 100 mg PO DAILY 01/14/25 04/25/25 History metformin 1,000 mg tablet 1,000 mg PO BID 01/14/25 04/25/25 History metoprolol tartrate 50 mg tablet 50 mg PO BID 01/14/25 04/25/25 History allopurinol 300 mg tablet 300 mg PO BID 04/25/25 04/25/25 History loperamide 2 mg tablet (Diamode) 2 mg PO ONCE 04/25/25 04/25/25 History omeprazole 20 mg capsule,delayed 20 mg PO BID 04/25/25 04/25/25 History release ondansetron 4 mg disintegrating 8 mg PO BID PRN NAUSEA/VOMITING 04/25/25 04/25/25 History tablet prednisone 20 mg tablet 100 mg PO DAILY PRN PER CANCER CARE 04/25/25 04/25/25 History prochlorperazine maleate 10 mg 10 mg PO QID PRN NAUSEA/VOMITING 04/25/25 04/25/25 History tablet (Compazine) Patient History Medical History Diabetes Hypertension 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 Social History Smoking Status: Never smoker Tobacco Type: Declines Hx Alcohol Use: No Hx Substance Use: No Preferred Language: Turkish Communication Ability: Effective Rock Splitter Required: No Beliefs That Will Affect Care: None Current Living Situation: Other Current Living Situation Comment: long term Other Information That Helps Us Care for You: No Feels Safe at Home: Yes Safety Concerns: Feels Safe At This Time Assistive Devices: None Review of Systems Review of Systems: All systems reviewed & are unremarkable except as noted in HPI & below Physical Exam Physical Exam: Pleasant man in no overt distress Constitutional: WD/WN, vitals as above ENMT: Mouth: no oral mucosal abnormality no evidence of thrush Respiratory: normal respiratory effort, lungs clear to auscultation Cardiovascular: RRR, no murmur, no edema Gastrointestinal (Abdomen): normal bowel sounds, soft, nontender, no hepatosplenomegaly Results & Data Vital Signs (Past 12 Hours) Vital Signs Temp Pulse Pulse Resp BP BP Pulse Ox 04/26/25 08:00 37.2 C 66 16 122/74 95 04/25/25 21:57 37.2 C 90 18 137/85 97 04/25/25 21:34 81 18 131/84 96 O2 Del Method 04/26/25 08:00 Room Air 04/25/25 21:57 Room Air 04/25/25 21:34 Room Air Laboratory Results 04/26/25 04/26/25 04/26/25 Range/Units 06:43 05:55 05:51 WBC 1.40 L (4.8-10.8) K/ul RBC 2.82 L (4.70-6.10) M/uL Hgb 8.8 L (14.0-18.0) g/dl Hct 25.9 L (42.0-52.0) % MCV 91.8 (80.0-100.0) fL MCH 31.2 (25.0-34.0) pg MCHC 34.0 (32.0-36.0) g/dL RDW Std Deviation 56.6 H (36.4-46.3) fL RDW Coeff of Marguerite 16.9 H (11.5-14.5) % Plt Count 240 (130-400) K/uL MPV 9.5 (9.4-12.4) fL Immature Gran % (Auto) 0.0 % Neut % (Auto) 25.0 % Lymph % (Auto) 27.9 % [place] % (Auto) 45.0 % Eos % (Auto) 1.4 % Baso % (Auto) 0.7 % Neut # (Auto) 0.35 L* (1.40-6.50) K/uL Lymph # (Auto) 0.39 L (1.20-3.40) K/uL [place] # (Auto) 0.63 H (0.11-0.59) K/uL Eos # (Auto) 0.02 (0.00-0.50) K/uL Baso # (Auto) 0.01 (0.00-0.20) K/uL Immature Gran # (Auto) 0.00 L (0.01-0.20) K/uL Polychromasia 1+ Ovalocytes 1+ Echinocytes 1+ PT (9.0-12.0) Seconds INR (0.9-1.1) APTT (21-31) Seconds PTT Ratio Sodium 134 L (136-145) mmol/L Potassium 3.5 (3.5-5.1) mmol/L Chloride 100 (98-107) mmol/L Carbon Dioxide 27 (21-32) mmol/L Anion Gap 7 (3-11) BUN 12 (6-23) mg/dl Creatinine 0.82 (0.6-1.4) mg/dl Est Cr Clr Drug Dosing 143.5 ml/min eGFR 110.40 BUN/Creatinine Ratio 14.6 (10-20) Glucose 144 H (70-99(Fasting)) mg/dl POC Glucose 132 H (70-99) mg/dl Lactate (0.4-2.0) mmol/L Calcium 8.7 (8.6-10.3) mg/dl Magnesium (1.7-2.4) mg/dl Total Bilirubin (0.2-1.0) mg/dl Direct Bilirubin (0-0.2) mg/dl AST (13-39) U/L ALT (7-52) U/L Alkaline Phosphatase (34-104) U/L Troponin I High Sens (0-20) pg/ml Total Protein (6.0-8.3) gm/dl Albumin (3.4-5.0) gm/dl Procalcitonin (0-0.5) ng/ml Urine Color Yellow Urine Appearance Clear (Clear) Urine pH 7.0 (4.5-7.5) Ur Specific [place] 1.015 (1.000-1.030) Urine Protein 2+ H (Negative) Urine Glucose (UA) Negative (Negative) Urine Ketones Negative (Negative) Urine Blood Negative (Negative) Urine Nitrite Negative (Negative) Urine Bilirubin Negative (Negative) Urine Urobilinogen Negative (Negative) Ur Leukocyte Esterase Negative (Negative) Urine RBC 0-2 (0-2) /hpf Urine WBC 0-5 (0-5) /hpf Ur Epithelial Cells 0-2 (0-2) /hpf Urine Bacteria None Seen (None Seen) Urine Comment Nasal Screen MRSA (PCR) (Negative) SARS-CoV-2 (PCR) (Negative) Influenza Type A (PCR) (Neg) Influenza Type B (PCR) (Neg) RSV (RT-PCR) (Neg) 04/25/25 04/25/25 04/25/25 Range/Units 23:58 22:07 17:50 WBC (4.8-10.8) K/ul RBC (4.70-6.10) M/uL Hgb (14.0-18.0) g/dl Hct (42.0-52.0) % MCV (80.0-100.0) fL MCH (25.0-34.0) pg MCHC (32.0-36.0) g/dL RDW Std Deviation (36.4-46.3) fL RDW Coeff of Marguerite (11.5-14.5) % Plt Count (130-400) K/uL MPV (9.4-12.4) fL Immature Gran % (Auto) % Neut % (Auto) % Lymph % (Auto) % [place] % (Auto) % Eos % (Auto) % Baso % (Auto) % Neut # (Auto) (1.40-6.50) K/uL Lymph # (Auto) (1.20-3.40) K/uL [place] # (Auto) (0.11-0.59) K/uL Eos # (Auto) (0.00-0.50) K/uL Baso # (Auto) (0.00-0.20) K/uL Immature Gran # (Auto) (0.01-0.20) K/uL Polychromasia Ovalocytes Echinocytes PT (9.0-12.0) Seconds INR (0.9-1.1) APTT (21-31) Seconds PTT Ratio Sodium (136-145) mmol/L Potassium (3.5-5.1) mmol/L Chloride (98-107) mmol/L Carbon Dioxide (21-32) mmol/L Anion Gap (3-11) BUN (6-23) mg/dl Creatinine (0.6-1.4) mg/dl Est Cr Clr Drug Dosing ml/min eGFR BUN/Creatinine Ratio (10-20) Glucose (70-99(Fasting)) mg/dl POC Glucose 115 H (70-99) mg/dl Lactate (0.4-2.0) mmol/L Calcium (8.6-10.3) mg/dl Magnesium (1.7-2.4) mg/dl Total Bilirubin (0.2-1.0) mg/dl Direct Bilirubin (0-0.2) mg/dl AST (13-39) U/L ALT (7-52) U/L Alkaline Phosphatase (34-104) U/L Troponin I High Sens (0-20) pg/ml Total Protein (6.0-8.3) gm/dl Albumin (3.4-5.0) gm/dl Procalcitonin (0-0.5) ng/ml Urine Color Urine Appearance (Clear) Urine pH (4.5-7.5) Ur Specific [place] (1.000-1.030) Urine Protein (Negative) Urine Glucose (UA) (Negative) Urine Ketones (Negative) Urine Blood (Negative) Urine Nitrite (Negative) Urine Bilirubin (Negative) Urine Urobilinogen (Negative) Ur Leukocyte Esterase (Negative) Urine RBC (0-2) /hpf Urine WBC (0-5) /hpf Ur Epithelial Cells (0-2) /hpf Urine Bacteria (None Seen) Urine Comment Nasal Screen MRSA (PCR) Positive A (Negative) SARS-CoV-2 (PCR) NEGATIVE (Negative) Influenza Type A (PCR) Negative (Neg) Influenza Type B (PCR) Negative (Neg) RSV (RT-PCR) Negative (Neg) 04/25/25 Range/Units 17:44 WBC 1.25 L (4.8-10.8) K/ul RBC 3.42 L (4.70-6.10) M/uL Hgb 10.7 L (14.0-18.0) g/dl Hct 31.2 L (42.0-52.0) % MCV 91.2 (80.0-100.0) fL MCH 31.3 (25.0-34.0) pg MCHC 34.3 (32.0-36.0) g/dL RDW Std Deviation 55.4 H (36.4-46.3) fL RDW Coeff of Marguerite 16.8 H (11.5-14.5) % Plt Count 243 (130-400) K/uL MPV 9.8 (9.4-12.4) fL Immature Gran % (Auto) 0.0 % Neut % (Auto) 19.2 % Lymph % (Auto) 30.4 % [place] % (Auto) 48.0 % Eos % (Auto) 1.6 % Baso % (Auto) 0.8 % Neut # (Auto) 0.24 L* (1.40-6.50) K/uL Lymph # (Auto) 0.38 L (1.20-3.40) K/uL [place] # (Auto) 0.60 H (0.11-0.59) K/uL Eos # (Auto) 0.02 (0.00-0.50) K/uL Baso # (Auto) 0.01 (0.00-0.20) K/uL Immature Gran # (Auto) 0.00 L (0.01-0.20) K/uL Polychromasia Ovalocytes Echinocytes PT 10.6 (9.0-12.0) Seconds INR 1.0 (0.9-1.1) APTT 30 (21-31) Seconds PTT Ratio 1.1 Sodium 134 L (136-145) mmol/L Potassium 3.5 (3.5-5.1) mmol/L Chloride 99 (98-107) mmol/L Carbon Dioxide 27 (21-32) mmol/L Anion Gap 8 (3-11) BUN 14 (6-23) mg/dl Creatinine 0.77 (0.6-1.4) mg/dl Est Cr Clr Drug Dosing 152.8 ml/min eGFR 112.51 BUN/Creatinine Ratio 18.2 (10-20) Glucose 126 H (70-99(Fasting)) mg/dl POC Glucose (70-99) mg/dl Lactate 1.3 (0.4-2.0) mmol/L Calcium 9.1 (8.6-10.3) mg/dl Magnesium 1.6 L (1.7-2.4) mg/dl Total Bilirubin 0.5 (0.2-1.0) mg/dl Direct Bilirubin 0.0 (0-0.2) mg/dl AST 26 (13-39) U/L ALT 24 (7-52) U/L Alkaline Phosphatase 82 (34-104) U/L Troponin I High Sens 10.2 (0-20) pg/ml Total Protein 8.3 (6.0-8.3) gm/dl Albumin 3.9 (3.4-5.0) gm/dl Procalcitonin 0.07 (0-0.5) ng/ml Urine Color Urine Appearance (Clear) Urine pH (4.5-7.5) Ur Specific [place] (1.000-1.030) Urine Protein (Negative) Urine Glucose (UA) (Negative) Urine Ketones (Negative) Urine Blood (Negative) Urine Nitrite (Negative) Urine Bilirubin (Negative) Urine Urobilinogen (Negative) Ur Leukocyte Esterase (Negative) Urine RBC (0-2) /hpf Urine WBC (0-5) /hpf Ur Epithelial Cells (0-2) /hpf Urine Bacteria (None Seen) Urine Comment Nasal Screen MRSA (PCR) (Negative) SARS-CoV-2 (PCR) (Negative) Influenza Type A (PCR) (Neg) Influenza Type B (PCR) (Neg) RSV (RT-PCR) (Neg) Diagnostic Findings Chest X-Ray 04/25/25 17:07 Exam: Portable chest. History: Sepsis. Comparison: Scalp view from CT dated December 26, 2024 Findings: Right chest port catheter. There is a nodular density projecting over the peripheral superior lateral aspect of the right lung field. Suspect something outside the patient. Cardiomediastinal silhouette is within normal limits. Pulmonary vasculature is within normal limits. Prominent nonspecific perihilar and infrahilar interstitial markings. No consolidation or appreciated pleural disease. Impression: 1.Nodular density projecting over the right superior lateral lung field questionably representing something outside the patient. Correlate with clinical data. Pulmonary nodule cannot be excluded on the single view exam. 2. Otherwise no acute process. Electronically signed by Eric Ludwig 04-25-2025 6:21 PM KUB X-Ray 04/25/25 17:07 Exam: KUB. History: Abdominal pain. Comparison:None. Findings: Likely button artifact projecting over the midline lower pelvis. Upper abdomen not included on this exam. Calcification projecting over the left abdomen. Small left renal calculus not excluded. Likely pelvic phleboliths. Impression: Question inferior left renal pole calculus. No appreciated acute process. Electronically signed by Eric Ludwig 04-25-2025 6:[address] 04/25/25 19:12 Exam(s): CT CHEST Without Contrast EXAM: CT Chest Without Intravenous Contrast CLINICAL HISTORY: Reason for exam: RULE OUT MASS. TECHNIQUE: Axial computed tomography images of the chest without intravenous contrast. CTDI is 21 mGy and DLP is 732 mGy-cm. Automated exposure control was utilized for the study. A dose lowering technique was utilized adhering to the principles of ALARA. COMPARISON: 12/26/[address] FINDINGS: Lungs: No consolidation or interstitial edema. No suspicious lesion. Pleural space: No pleural effusion or pneumothorax. Heart: Unremarkable. Bones/joints: No acute findings. Soft tissues: Previously visualized soft tissue mass in the left supraclavicular area measures 2.3 x 1.5 cm (series 2 image 1), previously 8.0 x 0.0 cm. Vasculature: Unremarkable. Lymph nodes: No adenopathy.. Tubes, lines and devices: Port-A-Cath in place. IMPRESSION: Previously visualized soft tissue mass in the left supraclavicular area measures 2.3 x 1.5 cm, previously 8.0 x 0.0 cm. Electronically signed by: Candelario Akers MD 04/25/25 20:[address] 04/25/25 20:01 Exam(s): CT FACIAL With Contrast IV Amt: 92ml EXAM: CT Maxillofacial With Intravenous Contrast CLINICAL HISTORY: Reason for exam: right jaw pain. TECHNIQUE: Axial computed tomography images of the face with intravenous contrast. CTDI is 36.26 mGy and DLP is 704.51 mGy-cm. Automated exposure control was utilized for the study. A dose lowering technique was utilized adhering to the principles of ALARA. CONTRAST: Patient received 92ml of IV contrast COMPARISON: No relevant prior studies available. FINDINGS: Bones/joints: No acute fracture. We will appearance of the mandible and temporomandibular joints. Soft tissues: Unremarkable. Orbits: Unremarkable. Sinuses: Unremarkable. IMPRESSION: No acute abnormality. Electronically signed by: Candelario Akers MD 04/25/25 20:51 PM
[2025-04-26] MEDS ORDERED: Nursing to Pharmacy Communication SCH (10:30)
[2025-04-26] MEDS: HEPARIN 100 UNIT/ML 5ML FLUSH FLUSH PRN (16:14)
[2025-04-26] MEDS: ACETAMINOPHEN 325 MG TAB PO PRN (21:56)
[2025-04-27 06:18] LABS: Hematocrit (blood only) 27.4 % (42.0-52.0); Hemoglobin 9.2 g/dl (14.0-18.0); Mean Corpuscular Hemoglobin 30.6 pg (25.0-34.0); Mean Corpuscular Hgb Conc 33.6 g/dL (32.0-36.0); Mean Platelet Volume 8.9 fL (9.4-12.4); Platelet Count 241 K/uL (130-400); RDW Coefficient of Variation 16.4 % (11.5-14.5); RDW Standard Deviation 54.4 fL (36.4-46.3); Red Blood Count 3.01 M/uL (4.70-6.10); White Blood Count 1.87 K/ul (4.8-10.8)
[2025-04-27 06:39] LABS: BUN Creatinine Ratio 15.8 (10-20); Calcium 8.8 mg/dl (8.6-10.3); Creatinine Clr Calc Pharmacy 154.8 ml/min; Magnesium 1.7 mg/dl (1.7-2.4); Phosphorus 3.3 mg/dl (2.5-4.9); Potassium 3.6 mmol/L (3.5-5.1)
[2025-04-27 06:48] LABS: Polychromasia 1+
[2025-04-27 06:53] LABS: Basophils # (auto) 0.01 K/uL (0.00-0.20); Basophils % (auto) 0.5 %; Eosinophils # (auto) 0.01 K/uL (0.00-0.50); Eosinophils % (auto) 0.5 %; Immature Granulocytes # (auto) 0.02 K/uL (0.01-0.20); Immature Granulocytes % (auto) 1.1 %; Lymphocytes # (auto) 0.39 K/uL (1.20-3.40); Lymphocytes % (auto) 20.9 %; Monocytes % (auto) 32.1 %; Neutrophils # (auto) 0.84 K/uL (1.40-6.50); Neutrophils % (auto) 44.9 %
--- NOTE | 2025-04-27 09:28 | Hospitalist Progress Note ---
Date of Service April 27, 2025 Assessment & Plan (1) Neutropenia: Plan Assessment/plan Febrile neutropenia Chemotherapy-induced neutropenia. 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 Reports pain during swallowing and substernal chest pain for last couple of days WBC count of 1.25 with ANC of 240 last lab work from 2 months ago showed hemoglobin of 8.2 and WBC count of 5.3. Patient underwent chest x-ray which showed nodular density projecting over right superior lateral lung field. KUB did not show acute process. UA - negat. Blood cultx -pending CT chest - IMPRESSION: Previously visualized soft tissue mass in the left supraclavicular area measures 2.3 x 1.5 cm, previously 8.0 x 0.0 cm. Will continue vancomycin and zosyn; follow up on infectious work up Recently pt broke his tooth - consulted w/ Dr. Adkins - magda for tooth extraction tmrw. Heme/onc consulted - discussed with - ok to proceed w/ extraction, cont. antibiotics Obtained GI evaluation given odynophagia associated with neutropenia. Started lidocaine viscous and nystatin solution scheduled on admission, will continue. Type 2 diabetes mellituscontinue on insulin Hyperlipidemiacontinue on rosuvastatin History of CADcontinue on aspirin, Plavix hypertension continue on metoprolol, losartan Goutcontinue on allopurinol Full code DVT phylaxis heparin Admission and Anticipated Discharge Date Admission Date: April 25, 2025 Subjective Pt seen in follow up of neutropenic fever Currently on vanco, zosyn, reported broken tooth on admission Currently pt is fairly comfortable, no shortness of breath, no abd. pain, has some issues swallowing but able to take PO No n/v, diarrhea Discussed with Dr. Adkins- magda for tooth extraction. Also discussed with oncology - ok to proceed w/ extraction and cont. abx. WBC/ ANC improving Review of Systems Review of Systems: All systems reviewed & are unremarkable except as noted in Subjective Physical Exam Physical Exam: Constitutional: WD/WN, in NAD HEENT: Left facial edema, + broken left upper molar Chest; port in place; no overlying erythema Respiratory: normal respiratory effort, lungs clear to auscultation, no wheeze, rales, rhonchi. Cardiovascular: RRR, no murmur, no edema Abdomen: normal bowel sounds, soft, nontender Musculoskeletal: moves extremities Skin: no rashes, warm and dry Neurologic: PERRL, EOMI, no face palsy, no dysarthria, answers appropriately, moves all extremities Psychiatric: A+Ox3, euthymic affect Results & Data Results & Data Vital Signs (Past 12 Hours) Vital Signs Temp Pulse Resp BP Pulse Ox O2 Del Method 04/27/25 07:31 37.5 C 78 16 131/74 95 Room Air Laboratory Results 04/27/25 04/27/25 04/26/25 Range/Units 07:30 06:01 20:58 WBC 1.87 L (4.8-10.8) K/ul RBC 3.01 L (4.70-6.10) M/uL Hgb 9.2 L (14.0-18.0) g/dl Hct 27.4 L (42.0-52.0) % MCV 91.0 (80.0-100.0) fL MCH 30.6 (25.0-34.0) pg MCHC 33.6 (32.0-36.0) g/dL RDW Std Deviation 54.4 H (36.4-46.3) fL RDW Coeff of Marguerite 16.4 H (11.5-14.5) % Plt Count 241 (130-400) K/uL MPV 8.9 L (9.4-12.4) fL Immature Gran % (Auto) 1.1 % Neut % (Auto) 44.9 % Lymph % (Auto) 20.9 % [place] % (Auto) 32.1 % Eos % (Auto) 0.5 % Baso % (Auto) 0.5 % Neut # (Auto) 0.84 L* (1.40-6.50) K/uL Lymph # (Auto) 0.39 L (1.20-3.40) K/uL [place] # (Auto) 0.60 H (0.11-0.59) K/uL Eos # (Auto) 0.01 (0.00-0.50) K/uL Baso # (Auto) 0.01 (0.00-0.20) K/uL Immature Gran # (Auto) 0.02 (0.01-0.20) K/uL Polychromasia 1+ Sodium 135 L (136-145) mmol/L Potassium 3.6 (3.5-5.1) mmol/L Chloride 103 (98-107) mmol/L Carbon Dioxide 25 (21-32) mmol/L Anion Gap 7 (3-11) BUN 12 (6-23) mg/dl Creatinine 0.76 (0.6-1.4) mg/dl Est Cr Clr Drug Dosing 154.8 ml/min eGFR 112.96 BUN/Creatinine Ratio 15.8 (10-20) Glucose 113 H (70-99(Fasting)) mg/dl POC Glucose 125 H 130 H (70-99) mg/dl Calcium 8.8 (8.6-10.3) mg/dl Phosphorus 3.3 (2.5-4.9) mg/dl Magnesium 1.7 (1.7-2.4) mg/dl 04/26/25 04/26/25 Range/Units 16:34 11:40 WBC (4.8-10.8) K/ul RBC (4.70-6.10) M/uL Hgb (14.0-18.0) g/dl Hct (42.0-52.0) % MCV (80.0-100.0) fL MCH (25.0-34.0) pg MCHC (32.0-36.0) g/dL RDW Std Deviation (36.4-46.3) fL RDW Coeff of Marguerite (11.5-14.5) % Plt Count (130-400) K/uL MPV (9.4-12.4) fL Immature Gran % (Auto) % Neut % (Auto) % Lymph % (Auto) % [place] % (Auto) % Eos % (Auto) % Baso % (Auto) % Neut # (Auto) (1.40-6.50) K/uL Lymph # (Auto) (1.20-3.40) K/uL [place] # (Auto) (0.11-0.59) K/uL Eos # (Auto) (0.00-0.50) K/uL Baso # (Auto) (0.00-0.20) K/uL Immature Gran # (Auto) (0.01-0.20) K/uL Polychromasia Sodium (136-145) mmol/L Potassium (3.5-5.1) mmol/L Chloride (98-107) mmol/L Carbon Dioxide (21-32) mmol/L Anion Gap (3-11) BUN (6-23) mg/dl Creatinine (0.6-1.4) mg/dl Est Cr Clr Drug Dosing ml/min eGFR BUN/Creatinine Ratio (10-20) Glucose (70-99(Fasting)) mg/dl POC Glucose 133 H 130 H (70-99) mg/dl Calcium (8.6-10.3) mg/dl Phosphorus (2.5-4.9) mg/dl Magnesium (1.7-2.4) mg/dl Medications Administered Current Inpatient Medications Acetaminophen (Acetaminophen 325 Mg Tab) 650 mg PO Q4H PRN PRN Reason: pain/fever Stop: 05/25/25 20:00 Last Admin: 04/27/25 08:35 Dose: 650 mg Al Hydrox/Mg Hydrox/Simethicone (Aluminum/Magnesium Susp 30 Ml Udc) 30 ml PO Q6H PRN PRN Reason: Dyspepsia Stop: 05/25/25 20:00 Allopurinol (Allopurinol 300 Mg Tab) 300 mg PO BID YOLETTE Stop: 05/25/25 22:02 Last Admin: 04/27/25 08:39 Dose: 300 mg Ascorbic Acid (Ascorbic Acid 500 Mg Tab) 500 mg PO DAILY YOLETTE Stop: 05/26/25 08:59 Last Admin: 04/27/25 08:39 Dose: 500 mg Aspirin (Aspirin 81 Mg Ectab) 81 mg PO DAILY YOLETTE Stop: 05/26/25 08:59 Last Admin: 04/27/25 08:40 Dose: 81 mg Atorvastatin Calcium (Atorvastatin 40 Mg Tab) 80 mg PO DAILY YOLETTE Stop: 05/26/25 08:59 Last Admin: 04/27/25 08:39 Dose: 80 mg Clopidogrel Bisulfate (Clopidogrel Bisulfate 75 Mg Tab) 75 mg PO DAILY YOLETTE Stop: 05/26/25 08:59 Last Admin: 04/27/25 08:39 Dose: 75 mg Cyanocobalamin (Cyanocobalamin (B-12) 500 Mcg Tablet) 500 mcg PO DAILY YOLETTE Stop: 05/26/25 08:59 Last Admin: 04/27/25 08:40 Dose: 500 mcg Dextrose (Dextrose 50% 50 Ml Syringe) 25 - 50 ml IV UD PRN; Protocol PRN Reason: Hypoglycemia Protocol Stop: 05/25/25 22:02 Glucagon (Glucagon For Inj 1 Mg Vial) 1 mg SQ UD PRN; Protocol PRN Reason: Hypoglycemia Protocol Stop: 05/25/25 22:02 Glucose (Glucose 40% Gel 15 Gm Tube) 15 - 30 gm PO UD PRN; Protocol PRN Reason: Hypoglycemia Protocol Stop: 05/25/25 22:02 Glucose (Glucose 10 Tab/Tube) 4 - 8 tab PO UD PRN; Protocol PRN Reason: Hypoglycemia Protocol Stop: 05/25/25 22:02 Heparin Sodium (Porcine) (Heparin Sod 5,000 Unit/0.5 Ml Vial) 5,000 units SQ Q8 YOLETTE Stop: 05/25/25 21:59 Last Admin: 04/27/25 05:43 Dose: Not Given Heparin Sodium (Porcine) (Heparin 100 Unit/Ml 5ml Flush) 5 ml FLUSH PRN PRN PRN Reason: Flush Stop: 05/26/25 15:57 Last Admin: 04/27/25 08:34 Dose: 5 ml Piperacillin Sod/Tazobactam Sod (Zosyn) 4.5 gm in 100 mls @ 25 mls/hr IV Q8H [facility]; Protocol Stop: 05/06/25 00:29 Last Infusion: 04/27/25 08:38 Dose: Infused Pantoprazole Sodium (Protonix) 40 mg in 10 mls @ 5 mls/min IV BID YOLETTE Stop: 05/25/25 22:02 Last Admin: 04/27/25 08:42 Dose: 5 mls/min Vancomycin HCl 1,250 mg/ (Sodium Chloride) 275 mls @ 200 mls/hr IV Q8H [facility] Stop: 04/28/25 05:59 Last Infusion: 04/27/25 07:30 Dose: Infused Magnesium Sulfate/Dextrose (Magnesium Sulfate / D5w) 1 gm in 100 mls @ 50 mls/hr IV ONE ONE Stop: 04/27/25 11:24 Insulin Aspart (Insulin Aspart Per Unit Charge) 0 units SC ACHS [facility] Stop: 05/26/25 00:00 Last Admin: 04/27/25 08:04 Dose: Not Given Insulin Glargine (Lantus Per Unit Charge) 10 units SQ BID YOLETTE Stop: 05/25/25 22:02 Last Admin: 04/27/25 08:35 Dose: 10 units Lidocaine HCl (Lidocaine Viscous 2% 15 Ml Udc) 15 ml MT Q8H [facility] Stop: 05/25/25 20:14 Last Admin: 04/27/25 05:43 Dose: Not Given Losartan Potassium (Losartan Potassium 50 Mg Tab) 100 mg PO DAILY YOLETTE Stop: 05/26/25 08:59 Last Admin: 04/27/25 08:38 Dose: 100 mg Metoprolol Tartrate (Metoprolol Tartrate 50 Mg Tab) 50 mg PO BID YOLETTE Stop: 05/25/25 22:02 Last Admin: 04/27/25 08:39 Dose: 50 mg Miscellaneous (Carbohydrates For Hypoglycemia ) 15 - 30 gm PO UD PRN PRN Reason: Hypoglycemia Protocol Stop: 05/25/25 22:02 Miscellaneous Information (Vancomycin Consult Active) 1 each N/A UD PRN PRN Reason: Consult Stop: 05/25/25 20:00 Nystatin (Nystatin 500,000 Unit Tab) 500,000 units PO QID YOLETTE Stop: 05/25/25 20:59 Last Admin: 04/27/25 08:35 Dose: 500,000 units Polyethylene Glycol (Polyethylene (Miralax) 17 Gm Pack) 17 gm PO DAILY PRN PRN Reason: Constipation Stop: 05/25/25 20:00
[2025-04-27] MEDS: MAGNESIUM SULFATE / D5W 1 GM/100 ML BAG IV ONE (09:56)
--- NOTE | 2025-04-27 10:29 | Oral/Maxillofacial Consult ---
Date of Consultation April 27, 2025 Assessment & Plan (1) Oral infection: (2) Fractured tooth: (3) Traumatic ulcer of oral mucosa: History of Present Illness Reason for Consultation: UPPER LEFT JAW PAIN AND SWELLING Attending Physician: Rip Kearney MD History of Present Illness Oral Maxillofacial Surgery Exam Present Complaint: I have pain/swelling/drainage from my infected UPPER LEFT wisdom teeth. The tooth is fractured and has caused a large ulcer in the upper left cheek Symptoms have been ongoing for a while. The fractured tooth crown is rubbing the soft tissue which is causing the pain, ulcer and swelling Oral Exam: Finding--Upper left fractured tooth and cheek ulcer, tender gingival tissue .\ Tooth # 16 is fractured and shape and removal is clinical indicated. Imaging: CT scan shows the fractured tooth # 16 Soft tissue: Upper left mucobuccal fold is swollen, ulcerated and very painful. The floor of the mouth, tongue, hard/soft palate, posterior pharyngeal area all with in normal limits, no other pathology or abnormal findings noted. Oral Care: Overall oral care is good Occlusion: Class I TMJ exam: No pop, clicking, pain, good ROM, No history of TMJ injury or dysfunction Head/Neck exam: Neck is supple, FROM, Able to extend and flex neck w/o difficulty, no masses, no abnormalities, no airway issues, no evidence of sleep apnea. Treatment Plan: Once cleared by medicine will plan the extraction, drain any superficial gum /soft tissue infection I reviewed the treatment plan and consent with the patient Understanding was expressed. Time was given for questions regarding the surgery, risks and post op care. Discussed alternative to treatment--procedure as planned, Do not do surgery The following teeth are decayed and fractured and removal is indicated RICO:Tooth # 16 fractured and irritating the cheek Risks discussed: Bleeding,Pain,swelling,infection, dry socket, delayed healing, nerve injury to face,lips,tongue,chin area which could be permanent (rare). TMJ, jaw stiffness, change in bite (rare), ear pain (referred). Sinus problems like fistula or infection. Need to leave a small root fragment in place to avoid injury to nerve or sinus. Recurrent infection Surgery to be set up once medially cleared for GA in OR With the amount of swelling and infection local will not be effective. I will set up RICO once medially cleared Allergies Allergy/AdvReac Type Severity Reaction Status Date / Time No Known Allergies Allergy Verified 04/25/25 17:40 Home Medications Medication Instructions Recorded Confirmed Type acetaminophen 500 mg tablet 500 mg PO TID PRN Pain 01/14/25 04/25/25 History (Tylenol Extra Strength) ascorbic acid (vitamin C) 500 mg 500 mg PO DAILY 01/14/25 04/25/25 History tablet (Vitamin C) aspirin 81 mg tablet,delayed 81 mg PO DAILY 01/14/25 04/25/25 History release atorvastatin 80 mg tablet 80 mg PO DAILY 01/14/25 04/25/25 History clopidogrel 75 mg tablet (Plavix) 75 mg PO DAILY 01/14/25 04/25/25 History cyanocobalamin (vitamin B-12) 500 500 mcg PO DAILY 01/14/25 04/25/25 History mcg tablet (Vitamin B-12) glipizide 5 mg tablet 5 mg PO BID 01/14/25 04/25/25 History losartan 100 mg tablet 100 mg PO DAILY 01/14/25 04/25/25 History metformin 1,000 mg tablet 1,000 mg PO BID 01/14/25 04/25/25 History metoprolol tartrate 50 mg tablet 50 mg PO BID 01/14/25 04/25/25 History allopurinol 300 mg tablet 300 mg PO BID 04/25/25 04/25/25 History loperamide 2 mg tablet (Diamode) 2 mg PO ONCE 04/25/25 04/25/25 History omeprazole 20 mg capsule,delayed 20 mg PO BID 04/25/25 04/25/25 History release ondansetron 4 mg disintegrating 8 mg PO BID PRN NAUSEA/VOMITING 04/25/25 04/25/25 History tablet prednisone 20 mg tablet 100 mg PO DAILY PRN PER CANCER CARE 04/25/25 04/25/25 History prochlorperazine maleate 10 mg 10 mg PO QID PRN NAUSEA/VOMITING 04/25/25 04/25/25 History tablet (Compazine) Patient History Medical History Diabetes Hypertension 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 Social History Smoking Status: Never smoker Tobacco Type: Declines Hx Alcohol Use: No Hx Substance Use: No Preferred Language: Frisian Communication Ability: Effective Business Development Consultant Required: No Beliefs That Will Affect Care: None Current Living Situation: Other Current Living Situation Comment: halfway Other Information That Helps Us Care for You: No Feels Safe at Home: Yes Safety Concerns: Feels Safe At This Time Assistive Devices: None Results & Data Vital Signs (Past 12 Hours) Vital Signs Temp Pulse Resp BP Pulse Ox O2 Del Method 04/27/25 07:31 37.5 C 78 16 131/74 95 Room Air PG Care Time/CCT Total # of Minutes Spent Total Time Spent with Patient: Total time spent is greater than 50% in coordination of care (as documented) at patient's floor/unit and/or counseling patient: Coding Level of Care Code 84679 IN/OBS CONSULT LVL 2,35M Diagnoses Oral infection K12.2 Open fracture of tooth with delayed healing, subsequent encounter S02.5XXG Encounter type: subsequent encounter Fracture healing: with delayed healing Fracture type: open Traumatic ulcer of oral mucosa K12.1 (2) Fractured tooth Encounter type: subsequent encounter Fracture healing: with delayed healing Fracture type: open Qualified Code(s): S02.5XXG - Fracture of tooth (traumatic), subsequent encounter for fracture with delayed healing
[2025-04-27] MEDS: VANCOMYCIN LEVEL ONE (11:39)
--- NOTE | 2025-04-27 11:58 | Gastroenterology Progress Note ---
Date of Service April 27, 2025 Assessment & Plan (1) Odynophagia: Plan: He is improving with treatment. As long as that continues I don't think we will need to do EGD. Admission and Anticipated Discharge Date Admission Date: April 25, 2025 Subjective Eating lunch. Says burning is improving and painful swallowing is better. WBC coming up Physical Exam Physical Exam: He looks well Constitutional: WD/WN, vitals as above Results & Data Vital Signs (Past 12 Hours) Vital Signs Temp Pulse Resp BP Pulse Ox O2 Del Method 04/27/25 07:31 37.5 C 78 16 131/74 95 Room Air
--- NOTE | 2025-04-27 12:53 | Pharmacy Report ---
Pharmacy PK ABX Note - Date of Service April 27, 2025 - Assessment and Plan Assessment 04/27 Patient has an infected upper left wisdom tooth with pain, swelling, and drainage. Surgical intervention to be done once medically cleared. Blood cultures from 04/25 are NGTD (prelim). Vancomycin level drawn today was 12.9mcg/mL which extrapolates to the very low end of the target AUC range. 04/26 44 year old M receiving vancomycin/zosyn for empiric treatment of febrile neutropenia. Patient has a history of lymphoma currently on chemotherapy. Pertinent microbiologic data includes: Positive MRSA Nasal Swab, blood cultures pending. Vancomycin currently ordered x 48 hours. Day #3 antibiotics Plan Vancomycin * Vancomycin level drawn today was 12.9mcg/mL which extrapolates to an AUC at the very low end of the range. * Increase Maintenance dose to: 1500 mg IV every 8 hours (predicted AUC at ss is 508mg/L.hr) * Regimen is predicted to achieve target AUC/TRAVIS of 400-600 mg/L.hr * Another random level ordered for 04/29@ 1200 Zosyn * 4.5gm iv q 8 hours Pharmacy will continue to follow and will adjust dose/frequency as necessary. Thank you. Pharmacy has transitioned to AUC monitoring for vancomycin. AUC/TRAVIS is the preferred PK/PD target and is associated with decreased risk of nephrotoxicity compared to traditional trough targets.
[2025-04-27] MEDS: VANCOMYCIN HCL 1,500 MG in SODIUM CHLORIDE 0.9% 500 ML IV SCH (13:29)
--- NOTE | 2025-04-27 16:14 | Progress Note ---
Date of Service April 27, 2025 Assessment & Plan Admission and Anticipated Discharge Date Admission Date: April 25, 2025 Subjective We will plan OR tomorrow 12:30 NPO midnight Plan --I&D upper left infection with extraction of fractured # 16 I reviewed the surgery with Lionel, consent to be signed tomorrow. Medically OK for the procedure. Results & Data Vital Signs (Past 12 Hours) Vital Signs Temp Pulse Resp BP Pulse Ox O2 Del Method 04/27/25 07:31 37.5 C 78 16 131/74 95 Room Air PG Care Time/CCT Total # of Minutes Spent Total Time Spent with Patient: Total time spent is greater than 50% in coordination of care (as documented) at patient's floor/unit and/or counseling patient: Coding Level of Care Code None
[2025-04-27] MEDS: CHLORHEXIDINE GLUCONATE 0.12% 480 ML MT PRN (18:00)
[2025-04-28] MEDS ORDERED: Nursing to Pharmacy Communication SCH ×2 (00:30→21:00)
[2025-04-28] MEDS: INSULIN ASPART PER UNIT CHARGE SC SCH ×2 (06:22→21:30)
--- NOTE | 2025-04-28 07:17 | Oncology Consultation ---
Date of Consultation April 28, 2025 History of Present Illness Attending Physician: Rip Kearney MD Allergies Allergy/AdvReac Type Severity Reaction Status Date / Time No Known Allergies Allergy Verified 04/28/25 12:51 Home Medications Medication Instructions Recorded Confirmed Type acetaminophen 500 mg tablet 500 mg PO TID PRN Pain 01/14/25 04/25/25 History (Tylenol Extra Strength) ascorbic acid (vitamin C) 500 mg 500 mg PO DAILY 01/14/25 04/25/25 History tablet (Vitamin C) aspirin 81 mg tablet,delayed 81 mg PO DAILY 01/14/25 04/25/25 History release atorvastatin 80 mg tablet 80 mg PO DAILY 01/14/25 04/25/25 History clopidogrel 75 mg tablet (Plavix) 75 mg PO DAILY 01/14/25 04/25/25 History cyanocobalamin (vitamin B-12) 500 500 mcg PO DAILY 01/14/25 04/25/25 History mcg tablet (Vitamin B-12) glipizide 5 mg tablet 5 mg PO BID 01/14/25 04/25/25 History losartan 100 mg tablet 100 mg PO DAILY 01/14/25 04/25/25 History metformin 1,000 mg tablet 1,000 mg PO BID 01/14/25 04/25/25 History metoprolol tartrate 50 mg tablet 50 mg PO BID 01/14/25 04/25/25 History allopurinol 300 mg tablet 300 mg PO BID 04/25/25 04/25/25 History loperamide 2 mg tablet (Diamode) 2 mg PO ONCE 04/25/25 04/25/25 History omeprazole 20 mg capsule,delayed 20 mg PO BID 04/25/25 04/25/25 History release ondansetron 4 mg disintegrating 8 mg PO BID PRN NAUSEA/VOMITING 04/25/25 04/25/25 History tablet prednisone 20 mg tablet 100 mg PO DAILY PRN PER CANCER CARE 04/25/25 04/25/25 History prochlorperazine maleate 10 mg 10 mg PO QID PRN NAUSEA/VOMITING 04/25/25 04/25/25 History tablet (Compazine) Patient History Medical History (Updated 04/28/25 @ 13:09 by Derick Song MD) Anemia Heart attack 2017 as per pt Diabetes Hypertension 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 Surgical History (Updated 04/28/25 @ 15:43 by Petra Woods RN) H/O tooth extraction (04/28/25) Extraction Tooth #16(Left) - Jace Adkins DMD History of incision and drainage (04/28/25) Left Facial Area Incision and Drainage - Jace Adkins DMD Hx of heart artery stent Hx of hand surgery Social History Smoking Status: Never smoker Tobacco Type: Declines Hx Alcohol Use: No Hx Substance Use: No Preferred Language: Vietnamese Communication Ability: Effective Mailing Machine Assistant Required: No Beliefs That Will Affect Care: None Current Living Situation: Other Current Living Situation Comment: snf Other Information That Helps Us Care for You: No Feels Safe at Home: Yes Safety Concerns: Feels Safe At This Time Assistive Devices: None Results & Data Vital Signs (Past 12 Hours) Vital Signs Temp Pulse Resp BP Pulse Ox O2 Del Method 04/28/25 07:12 37.8 C H 78 16 148/84 H 96 Room Air 04/28/25 00:25 37.1 C 04/27/25 19:41 38.4 C H 71 18 124/84 97 Room Air
--- NOTE | 2025-04-28 08:04 | Hospitalist Progress Note ---
Date of Service April 28, 2025 Assessment & Plan (1) Neutropenia: Plan Assessment/plan Febrile neutropenia Chemotherapy-induced neutropenia. 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 Reports pain during swallowing and substernal chest pain for last couple of days WBC count of 1.25 with ANC of 240 last lab work from 2 months ago showed hemoglobin of 8.2 and WBC count of 5.3. Patient underwent chest x-ray which showed nodular density projecting over right superior lateral lung field. KUB did not show acute process. UA - negat. Blood cultx - ngtd CT chest - IMPRESSION: Previously visualized soft tissue mass in the left supraclavicular area measures 2.3 x 1.5 cm, previously 8.0 x 0.0 cm. Will continue vancomycin and zosyn; follow up on infectious work up Recently pt broke his tooth - consulted w/ Dr. Adkins - plan for tooth extraction today (04/28/25) Heme/onc consulted - discussed with - ok to proceed w/ extraction, cont. antibio tics Obtained GI evaluation given odynophagia associated with neutropenia. Started lidocaine viscous and nystatin solution scheduled on admission, will continue. Type 2 diabetes mellituscontinue on insulin Hyperlipidemiacontinue on rosuvastatin History of CADcontinue on aspirin, Plavix hypertension continue on metoprolol, losartan Goutcontinue on allopurinol Full code DVT phylaxis heparin - hold for now (reviewed chart and pt has been refusing heparin, provider was not made aware) Admission and Anticipated Discharge Date Admission Date: April 25, 2025 Subjective Pt seen in follow up of neutropenic fever Currently on vanco, zosyn, reported broken tooth on admission Currently pt is fairly comfortable, no shortness of breath, no abd. pain, has some issues swallowing but able to take PO No n/v, diarrhea Discussed with Dr. Adkins- plan for tooth extraction. Also discussed with oncology - ok to proceed w/ extraction and cont. abx. WBC/ ANC improving as of yesterday, awaiting blood work for today Pt still with some left facial swelling, temp. 37.8C today. Plan for tooth extraction today Review of Systems Review of Systems: All systems reviewed & are unremarkable except as noted in Subjective Physical Exam Physical Exam: Constitutional: WD/WN, in NAD HEENT: Left facial edema, + broken left upper molar Chest; port in place; no overlying erythema Respiratory: normal respiratory effort, lungs clear to auscultation, no wheeze, rales, rhonchi. Cardiovascular: RRR, no murmur, no edema Abdomen: normal bowel sounds, soft, nontender Musculoskeletal: moves extremities Skin: no rashes, warm and dry Neurologic: PERRL, EOMI, no face palsy, no dysarthria, answers appropriately, moves all extremities Psychiatric: A+Ox3, euthymic affect Results & Data Results & Data Vital Signs (Past 12 Hours) Vital Signs Temp Pulse Resp BP Pulse Ox O2 Del Method 04/28/25 07:12 37.8 C H 78 16 148/84 H 96 Room Air 04/28/25 00:25 37.1 C Laboratory Results 04/28/25 04/27/25 04/27/25 Range/Units 06:08 20:33 16:14 POC Glucose 98 130 H 134 H (70-99) mg/dl Random Vancomycin (10-20) mcg/ml 04/27/25 04/27/25 Range/Units 11:31 11:12 POC Glucose 128 H (70-99) mg/dl Random Vancomycin 12.9 (10-20) mcg/ml Medications Administered Current Inpatient Medications Acetaminophen (Acetaminophen 325 Mg Tab) 650 mg PO Q4H PRN PRN Reason: pain/fever Stop: 05/25/25 20:00 Last Admin: 04/27/25 20:15 Dose: 650 mg Al Hydrox/Mg Hydrox/Simethicone (Aluminum/Magnesium Susp 30 Ml Udc) 30 ml PO Q6H PRN PRN Reason: Dyspepsia Stop: 05/25/25 20:00 Allopurinol (Allopurinol 300 Mg Tab) 300 mg PO BID [facility] Stop: 05/25/25 22:02 Last Admin: 04/28/25 07:27 Dose: 300 mg Ascorbic Acid (Ascorbic Acid 500 Mg Tab) 500 mg PO DAILY YOLETTE Stop: 05/26/25 08:59 Last Admin: 04/28/25 07:26 Dose: 500 mg Aspirin (Aspirin 81 Mg Ectab) 81 mg PO DAILY YOLETTE Stop: 05/26/25 08:59 Last Admin: 04/28/25 07:26 Dose: 81 mg Atorvastatin Calcium (Atorvastatin 40 Mg Tab) 80 mg PO DAILY [facility] Stop: 05/26/25 08:59 Last Admin: 04/28/25 07:27 Dose: 80 mg Chlorhexidine Gluconate (Chlorhexidine Gluconate 0.12% 480 Ml) 15 ml MT Q12 PRN PRN Reason: Oral Inflammation/Pain Stop: 05/27/25 16:13 Last Admin: 04/27/25 18:00 Dose: 15 ml Clopidogrel Bisulfate (Clopidogrel Bisulfate 75 Mg Tab) 75 mg PO DAILY YOLETTE Stop: 05/26/25 08:59 Last Admin: 04/28/25 07:26 Dose: 75 mg Cyanocobalamin (Cyanocobalamin (B-12) 500 Mcg Tablet) 500 mcg PO DAILY YOLETTE Stop: 05/26/25 08:59 Last Admin: 04/28/25 07:27 Dose: 500 mcg Dextrose (Dextrose 50% 50 Ml Syringe) 25 - 50 ml IV UD PRN; Protocol PRN Reason: Hypoglycemia Protocol Stop: 05/25/25 22:02 Glucagon (Glucagon For Inj 1 Mg Vial) 1 mg SQ UD PRN; Protocol PRN Reason: Hypoglycemia Protocol Stop: 05/25/25 22:02 Glucose (Glucose 40% Gel 15 Gm Tube) 15 - 30 gm PO UD PRN; Protocol PRN Reason: Hypoglycemia Protocol Stop: 05/25/25 22:02 Glucose (Glucose 10 Tab/Tube) 4 - 8 tab PO UD PRN; Protocol PRN Reason: Hypoglycemia Protocol Stop: 05/25/25 22:02 Heparin Sodium (Porcine) (Heparin Sod 5,000 Unit/0.5 Ml Vial) 5,000 units SQ Q8 YOLETTE Stop: 05/25/25 21:59 Last Admin: 04/28/25 06:16 Dose: Not Given Heparin Sodium (Porcine) (Heparin 100 Unit/Ml 5ml Flush) 5 ml FLUSH PRN PRN PRN Reason: Flush Stop: 05/26/25 15:57 Last Admin: 04/28/25 01:10 Dose: 5 ml Piperacillin Sod/Tazobactam Sod (Zosyn) 4.5 gm in 100 mls @ 25 mls/hr IV Q8H YOLETTE; Protocol Stop: 05/06/25 00:29 Last Admin: 04/28/25 04:33 Dose: 25 mls/hr Pantoprazole Sodium (Protonix) 40 mg in 10 mls @ 5 mls/min IV BID YOLETTE Stop: 05/25/25 22:02 Last Admin: 04/27/25 21:33 Dose: 5 mls/min Vancomycin HCl 1,500 mg/ (Sodium Chloride) 530 mls @ 200 mls/hr IV Q8H YOLETTE Stop: 05/05/25 12:59 Last Infusion: 04/28/25 07:13 Dose: Infused Insulin Aspart (Insulin Aspart Per Unit Charge) 0 units SC Q6 YOLETTE Stop: 05/28/25 05:59 Last Admin: 04/28/25 06:22 Dose: Not Given Insulin Glargine (Lantus Per Unit Charge) 10 units SQ BID YOLETTE Stop: 05/25/25 22:02 Last Admin: 04/28/25 07:25 Dose: Not Given Lidocaine HCl (Lidocaine Viscous 2% 15 Ml Udc) 15 ml MT Q8H YOLETTE Stop: 05/25/25 20:14 Last Admin: 04/28/25 05:07 Dose: Not Given Losartan Potassium (Losartan Potassium 50 Mg Tab) 100 mg PO DAILY [facility] Stop: 05/26/25 08:59 Last Admin: 04/28/25 07:26 Dose: 100 mg Metoprolol Tartrate (Metoprolol Tartrate 50 Mg Tab) 50 mg PO BID YOLETTE Stop: 05/25/25 22:02 Last Admin: 04/28/25 07:26 Dose: 50 mg Miscellaneous (Carbohydrates For Hypoglycemia ) 15 - 30 gm PO UD PRN PRN Reason: Hypoglycemia Protocol Stop: 05/25/25 22:02 Miscellaneous Information (Vancomycin Consult Active) 1 each N/A UD PRN PRN Reason: Consult Stop: 05/25/25 20:00 Nystatin (Nystatin 500,000 Unit Tab) 500,000 units PO QID YOLETTE Stop: 05/25/25 20:59 Last Admin: 04/28/25 07:26 Dose: 500,000 units Polyethylene Glycol (Polyethylene (Miralax) 17 Gm Pack) 17 gm PO DAILY PRN PRN Reason: Constipation Stop: 05/25/25 20:00
[2025-04-28 12:08] LABS: Basophils # (auto) 0.02 K/uL (0.00-0.20); Basophils % (auto) 0.8 %; Hematocrit (blood only) 26.7 % (42.0-52.0); Hemoglobin 9.1 g/dl (14.0-18.0); Immature Granulocytes # (auto) 0.02 K/uL (0.01-0.20); Immature Granulocytes % (auto) 0.8 %; Lymphocytes # (auto) 0.42 K/uL (1.20-3.40); Mean Corpuscular Hgb Conc 34.1 g/dL (32.0-36.0); Mean Corpuscular Volume 90.8 fL (80.0-100.0); Mean Platelet Volume 9.3 fL (9.4-12.4); Monocytes # (auto) 0.57 K/uL (0.11-0.59); Monocytes % (auto) 23.1 %; Neutrophils # (auto) 1.44 K/uL (1.40-6.50); Neutrophils % (auto) 58.3 %; Platelet Count 273 K/uL (130-400); RDW Coefficient of Variation 16.8 % (11.5-14.5); RDW Standard Deviation 55.8 fL (36.4-46.3); Red Blood Count 2.94 M/uL (4.70-6.10); White Blood Count 2.47 K/ul (4.8-10.8)
[2025-04-28 12:20] LABS: BUN Creatinine Ratio 15.3 (10-20); Calcium 8.6 mg/dl (8.6-10.3); Creatinine Clr Calc Pharmacy 163.4 ml/min; Magnesium 1.7 mg/dl (1.7-2.4); Phosphorus 3.4 mg/dl (2.5-4.9); Potassium 3.6 mmol/L (3.5-5.1)
[2025-04-28] MEDS ORDERED: LIDOCAINE 2% 2 ML VIAL/AMP(20MG/ML) INFIL ONE ×2 (12:24→12:25)
[2025-04-28] MEDS ORDERED: MIDAZOLAM HCL 1 MG/ML 2ML VIAL ONE (12:24)
[2025-04-28] MEDS ORDERED: PROPOFOL IV EMULSION 10 MG/ML 20 ML VIAL IV ONE (12:24)
[2025-04-28] MEDS ORDERED: DEXAMETHASONE SOD INJ 4 MG/ML VIAL ONE (12:24)
[2025-04-28] MEDS ORDERED: ONDANSETRON INJ 2 MG/ML 2 ML VIAL ONE (12:24)
[2025-04-28] MEDS ORDERED: ROCURONIUM BROMIDE 10 MG/ML 5 ML VIAL IV ONE (12:25)
[2025-04-28] MEDS ORDERED: fentaNYL citrate PF 100 MCG/2 ML VIAL ONE (12:25)
[2025-04-28] MEDS: VANCOMYCIN LEVEL ONE (12:34)
[2025-04-28] MEDS: LACTATED RINGER'S 1,000 ML IV SCH (12:53)
--- NOTE | 2025-04-28 13:00 | History & Physical Bridge Note ---
Date of Service April 28, 2025 History & Physical Bridge Note I have examined the patient, reviewed the History & Physical and in the interval since the performance of the History & Physical I have noted the following changes of clinical significance: no changes noted OK for the planned surgery
--- NOTE | 2025-04-28 13:03 | Anesthesiology Consultation ---
Date of Service April 28, 2025 Assessment & Plan (1) Encounter for pre-operative examination: Chart Review Chart Review: Acceptable Risk for Surgery (urgent) History Surgery Operation Date: 04/28/25 07:00 Proposed Procedures p Left Facial Area Incision and Drainage - Jace Adkins DMD s Extraction #16 - Jace Yee Lucille LYNETTE Height/Weight Height: 5 ft 11 in Weight: 110 kg Allergies Allergy/AdvReac Type Severity Reaction Status Date / Time No Known Allergies Allergy Verified 04/28/25 12:51 Medications Home Medications Medication Instructions Recorded Confirmed Last Taken acetaminophen 500 mg tablet 500 mg PO TID PRN Pain 01/14/25 04/25/25 04/09/25 (Tylenol Extra Strength) ascorbic acid (vitamin C) 500 mg 500 mg PO DAILY 01/14/25 04/25/25 04/09/25 tablet (Vitamin C) aspirin 81 mg tablet,delayed 81 mg PO DAILY 01/14/25 04/25/25 04/09/25 release atorvastatin 80 mg tablet 80 mg PO DAILY 01/14/25 04/25/25 04/09/25 clopidogrel 75 mg tablet (Plavix) 75 mg PO DAILY 01/14/25 04/25/25 04/25/25 cyanocobalamin (vitamin B-12) 500 500 mcg PO DAILY 01/14/25 04/25/25 04/09/25 mcg tablet (Vitamin B-12) glipizide 5 mg tablet 5 mg PO BID 01/14/25 04/25/25 04/09/25 losartan 100 mg tablet 100 mg PO DAILY 01/14/25 04/25/25 04/14/25 metformin 1,000 mg tablet 1,000 mg PO BID 01/14/25 04/25/25 04/09/25 metoprolol tartrate 50 mg tablet 50 mg PO BID 01/14/25 04/25/25 04/09/25 allopurinol 300 mg tablet 300 mg PO BID 04/25/25 04/25/25 04/09/25 loperamide 2 mg tablet (Diamode) 2 mg PO ONCE 04/25/25 04/25/25 04/25/25 omeprazole 20 mg capsule,delayed 20 mg PO BID 04/25/25 04/25/25 04/25/25 06:30 release ondansetron 4 mg disintegrating 8 mg PO BID PRN NAUSEA/VOMITING 04/25/25 04/25/25 Unknown tablet prednisone 20 mg tablet 100 mg PO DAILY PRN PER CANCER CARE 04/25/25 04/25/25 04/19/25 prochlorperazine maleate 10 mg 10 mg PO QID PRN NAUSEA/VOMITING 04/25/25 04/25/25 04/10/25 tablet (Compazine) Active Medications Generic Name Dose Route Start Last Admin Trade Name Freq PRN Reason Stop Dose Admin Acetaminophen 650 mg 04/25/25 20:01 04/27/25 20:15 Acetaminophen 325 Mg Tab PO 05/25/25 20:00 650 mg Q4H PRN Administration pain/fever Allopurinol 300 mg 04/25/25 22:03 04/28/25 07:27 Allopurinol 300 Mg Tab PO 05/25/25 22:02 300 mg BID YOLETTE Administration Ascorbic Acid 500 mg 04/26/25 09:00 04/28/25 07:26 Ascorbic Acid 500 Mg Tab PO 05/26/25 08:59 500 mg DAILY YOLETTE Administration Aspirin 81 mg 04/26/25 09:00 04/28/25 07:26 Aspirin 81 Mg Ectab PO 05/26/25 08:59 81 mg DAILY YOLETTE Administration Atorvastatin Calcium 80 mg 04/26/25 09:00 04/28/25 07:27 Atorvastatin 40 Mg Tab PO 05/26/25 08:59 80 mg DAILY YOLETTE Administration Chlorhexidine Gluconate 15 ml 04/27/25 16:14 04/27/25 18:00 Chlorhexidine Gluconate 0.12% 480 Ml MT 05/27/25 16:13 15 ml Q12 PRN Administration Oral Inflammation/Pain Clopidogrel Bisulfate 75 mg 04/26/25 09:00 04/28/25 07:26 Clopidogrel Bisulfate 75 Mg Tab PO 05/26/25 08:59 75 mg DAILY YOLETTE Administration Cyanocobalamin 500 mcg 04/26/25 09:00 04/28/25 07:27 Cyanocobalamin (B-12) 500 Mcg Tablet PO 05/26/25 08:59 500 mcg DAILY YOLETTE Administration Heparin Sodium (Porcine) 5,000 units 04/25/25 22:00 04/28/25 06:16 Heparin Sod 5,000 Unit/0.5 Ml Vial SQ 05/25/25 21:59 Not Given Q8 YOLETTE Heparin Sodium (Porcine) 5 ml 04/26/25 15:58 04/28/25 08:40 Heparin 100 Unit/Ml 5ml Flush FLUSH 05/26/25 15:57 5 ml PRN PRN Administration Flush Piperacillin Sod/Tazobactam Sod 4.5 gm in 100 mls @ 25 mls/hr 04/26/25 04:00 04/28/25 12:30 Zosyn IV 05/06/25 00:29 25 mls/hr Q8H YOLETTE Administration Protocol Pantoprazole Sodium 40 mg in 10 mls @ 5 mls/min 04/25/25 22:03 04/28/25 09:49 Protonix IV 05/25/25 22:02 5 mls/min BID YOLETTE Administration Vancomycin HCl 1,500 mg/ 530 mls @ 200 mls/hr 04/27/25 13:00 04/28/25 07:13 Sodium Chloride IV 05/05/25 12:59 Infused Q8H YOLETTE Infusion Lactated Ringer's 1,000 mls @ 30 mls/hr 04/28/25 13:00 04/28/25 12:53 Lr IV 05/01/25 12:59 30 mls/hr .Q24H YOLETTE Administration Insulin Aspart 0 units 04/28/25 06:00 04/28/25 12:30 Insulin Aspart Per Unit Charge SC 05/28/25 05:59 Not Given Q6 YOLETTE Insulin Glargine 10 units 04/25/25 22:03 04/28/25 07:25 Lantus Per Unit Charge SQ 05/25/25 22:02 Not Given BID YOLETTE Lidocaine HCl 15 ml 04/25/25 20:15 04/28/25 12:34 Lidocaine Viscous 2% 15 Ml Udc MT 05/25/25 20:14 Not Given Q8H YOLETTE Losartan Potassium 100 mg 04/26/25 09:00 04/28/25 07:26 Losartan Potassium 50 Mg Tab PO 05/26/25 08:59 100 mg DAILY YOLETTE Administration Metoprolol Tartrate 50 mg 04/25/25 22:03 04/28/25 07:26 Metoprolol Tartrate 50 Mg Tab PO 05/25/25 22:02 50 mg BID YOLETTE Administration Nystatin 500,000 units 04/25/25 21:00 04/28/25 07:26 Nystatin 500,000 Unit Tab PO 05/25/25 20:59 500,000 units QID YOLETTE Administration NPO Date Last Intake of Fluids: 04/27/25 Time Last Intake of Fluids: 23:00 Date Last Intake of Solids: 04/27/25 Time Last Intake of Solids: 18:00 Past Medical History Medical History (Updated 04/28/25 @ 13:09 by Derick Song MD) Anemia Heart attack 2017 as per pt Diabetes Hypertension 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 Past Surgical History Surgical History (Updated 04/28/25 @ 13:08 by Derick Song MD) Hx of heart artery stent Hx of hand surgery Social History Smoking Status: Never smoker Hx Alcohol Use: No Hx Substance Use: No Physical Exam Vital Signs Last Vital Signs Temp 36.9 C 04/28/25 12:45 Pulse 70 04/28/25 12:45 Resp 18 04/28/25 12:45 BP 120/84 04/28/25 12:45 Pulse Ox 95 04/28/25 12:45 O2 Del Method Room Air 04/28/25 12:45 Testing Laboratory Results 04/28/25 11:44 04/28/25 11:44 PT 10.6 Seconds (9.0-12.0) 04/25/25 17:44 INR 1.0 (0.9-1.1) 04/25/25 17:44 APTT 30 Seconds (21-31) 04/25/25 17:44 Urine Color Yellow 04/26/25 06:43 Urine Appearance Clear (Clear) 04/26/25 06:43 Urine pH 7.0 (4.5-7.5) 04/26/25 06:43 Ur Specific [place] 1.015 (1.000-1.030) 04/26/25 06:43 Urine Protein 2+ (Negative) H 04/26/25 06:43 Urine Glucose (UA) Negative (Negative) 04/26/25 06:43 Urine Ketones Negative (Negative) 04/26/25 06:43 Urine Nitrite Negative (Negative) 04/26/25 06:43 Ur Leukocyte Esterase Negative (Negative) 04/26/25 06:43 Urine RBC 0-2 /hpf (0-2) 04/26/25 06:43 Urine WBC 0-5 /hpf (0-5) 04/26/25 06:43 Ur Epithelial Cells 0-2 /hpf (0-2) 04/26/25 06:43 04/25/25 17:51 Aerobic Blood Culture - Preliminary Blood No growth in Aerobic bottle after 48 hours. Anaerobic Blood Culture - Preliminary No growth in Anaerobic bottle after 48 hours. 04/25/25 17:44 Aerobic Blood Culture - Preliminary Blood No growth in Aerobic bottle after 48 hours. Anaerobic Blood Culture - Preliminary No growth in Anaerobic bottle after 48 hours. 04/28/25 04/28/25 12:23 06:08 POC Glucose 87 98 Electrocardiogram Date: 04/25/25 Findings: + NSR @ (44)
[2025-04-28] MEDS ORDERED: PROMETHAZINE HCL 6.25 MG in SODIUM CHLORIDE 0.9% 50 ML IV PRN (13:14)
[2025-04-28] MEDS ORDERED: ATROPINE SULFATE 0.1 MG/ML 10ML SYR IV PRN (13:14)
[2025-04-28] MEDS ORDERED: LABETALOL HCL IV 5 MG/ML 20ML IV PRN (13:14)
--- NOTE | 2025-04-28 13:14 | Pharmacy Report ---
Pharmacy PK ABX Note - Date of Service April 28, 2025 - Assessment and Plan Assessment 04/28: Vanco level drawn today was 15.2mcg/mL which extrapolates to an AUC in the goal range. Patient scheduled for left facial area incision and drainage with tooth extraction today. Renal function is stable and patient has been febrile. 04/27: Patient has an infected upper left wisdom tooth with pain, swelling, and drainage. Surgical intervention to be done once medically cleared. Blood cultures from 04/25 are NGTD (prelim). Vancomycin level drawn today was 12.9mcg/mL which extrapolates to the very low end of the target AUC range. 04/26: 44 year old M receiving vancomycin/zosyn for empiric treatment of febrile neutropenia. Patient has a history of lymphoma currently on chemotherapy. Pertinent microbiologic data includes: Positive MRSA Nasal Swab, blood cultures pending. Vancomycin currently ordered x 48 hours. Day #4 antibiotics Plan Vancomycin * Vancomycin level drawn today was 15.2 mcg/mL which extrapolates to an AUC in the upper end of the goal range * Continue maintenance dose: 1500 mg IV every 8 hours * Regimen is predicted to achieve target AUC/TRAVIS of 400-600 mg/L.hr * Another random level will be ordered in the next few days or as clinically warranted. Zosyn * 4.5gm iv q 8 hours Pharmacy will continue to follow and will adjust dose/frequency as necessary. Thank you. Pharmacy has transitioned to AUC monitoring for vancomycin. AUC/TRAVIS is the preferred PK/PD target and is associated with decreased risk of nephrotoxicity compared to traditional trough targets.
[2025-04-28] MEDS ORDERED: SUGAMMADEX SODIUM 200 MG/2 ML VIAL IV ONE (13:33)
[2025-04-28] MEDS ORDERED: ePHEDrine sulfate 50 MG/5 ML SYR ONE (13:52)
[2025-04-28] MEDS: BUPIVACAINE/EPINEPHRINE 0.5% 1:200,000 1.8 ML CARP ONE (13:58)
--- NOTE | 2025-04-28 14:16 | Post Operative Brief Note ---
PG Immediate Post Op with CF Date of Surgery April 28, 2025 Pre & Post Diagnosis Operation Date: 04/28/25 07:00 Pre-Op Diagnosis: 1. Oral infection 2. Fractured tooth 3. Traumatic ulcer of oral mucosa Post-Op Diagnosis: 1. Oral infection 2. Fractured tooth 3. Traumatic ulcer of oral mucosa I identified the patient and participated in the time-out.: Yes Procedure Operation Date: 04/28/25 07:00 Actual Procedures p Left Facial Area Incision and Drainage, Extraction Tooth #16(Left) - Jace Adkins, LYNETTE Surgeon Jace Adkins, LYNETTE Band Top Maker none Estimated Blood Loss 4 Findings Consistent with Post-Op Diagnosis exophilic ulcer with raised boarders left tuberosity buccal mucosa area Specimens Specimen Description: A. Left cheek mucosa Complications Large deep ulcerated and raised papilloma like lesion --very dense and deep lesion as the result of constant rubbing from a fractured sharp # 16 Disposition Accompanied Patient To Recovery: Yes
[2025-04-28] MEDS ORDERED: MoRPHine SULFATE 2 MG/ML CARP IV PRN (14:17)
[2025-04-28] MEDS ORDERED: oxyCODONE HCL IR 5 MG TAB (IMMEDIATE RELEASE) PO PRN (14:17)
[2025-04-28] MEDS ORDERED: ACETAMINOPHEN 325 MG TAB PO PRN (14:17)
[2025-04-28] MEDS ORDERED: KETOROLAC 30 MG/ML VIAL IV PRN (14:17)
[2025-04-28] MEDS ORDERED: ONDANSETRON INJ 2 MG/ML 2 ML VIAL IV PRN (14:17)
[2025-04-28] MEDS: HYDROmorphone INJ 1 MG/ML SYRINGE IV PRN (14:20)
--- NOTE | 2025-04-28 14:23 | Anesthesiology Progress Note ---
Date of Service April 28, 2025 Anesthesia Post Procedure Vital Signs Vital Signs: Temp Pulse Pulse Resp BP Pulse Ox O2 Del Method 04/28/25 14:20 82 22 111/70 97 Oxymask 04/28/25 14:10 36.0 C L 84 25 H 106/69 95 Oxymask 04/28/25 12:45 36.9 C 70 18 120/84 95 Room Air 04/28/25 07:12 37.8 C H 78 16 148/84 H 96 Room Air 04/28/25 00:25 37.1 C 04/27/25 19:41 38.4 C H 71 18 124/84 97 Room Air 04/27/25 16:17 36.8 C 71 16 130/84 97 Room Air O2 Flow Rate 04/28/25 14:20 5 04/28/25 14:10 5 04/28/25 12:45 04/28/25 07:12 04/28/25 00:25 04/27/25 19:41 04/27/25 16:17 Pain Intensity Left Mouth: Pain Intensity: 8 Transfer of Care Handoff Completed per policy Notes Mental Status: alert / awake / arousable Patient Amnestic to Procedure: Yes Nausea / Vomiting: adequately controlled Pain: adequately controlled Airway Patency, RR, SpO2: stable & adequate BP & HR: stable & adequate Hydration State: stable & adequate Anesthetic Complications: no major complications apparent and Pt Satisfied with anesthetic care
--- NOTE | 2025-04-28 15:29 | Electrocardiogram Report ---
Test Reason : Blood Pressure : */* mmHG Vent. Rate : 82 BPM Atrial Rate : 82 BPM P-R Int : 140 ms QRS Dur : 90 ms QT Int : 366 ms P-R-T Axes : 16 23 40 degrees QTcB Int : 427 ms Normal sinus rhythm Normal ECG No previous ECGs available Confirmed by Brayan Anguiano ([id number]) on 04/28/2025 3:28:48 PM Referred By: [facility] Confirmed By: Brayan Anguiano
[2025-04-29 06:37] LABS: Hematocrit (blood only) 29.1 % (42.0-52.0); Hemoglobin 9.8 g/dl (14.0-18.0); Immature Granulocytes # (auto) 0.03 K/uL (0.01-0.20); Lymphocytes # (auto) 0.36 K/uL (1.20-3.40); Lymphocytes % (auto) 11.5 %; Mean Corpuscular Hemoglobin 30.5 pg (25.0-34.0); Mean Corpuscular Hgb Conc 33.7 g/dL (32.0-36.0); Mean Corpuscular Volume 90.7 fL (80.0-100.0); Mean Platelet Volume 9.1 fL (9.4-12.4); Monocytes # (auto) 0.56 K/uL (0.11-0.59); Monocytes % (auto) 17.9 %; Neutrophils # (auto) 2.18 K/uL (1.40-6.50); Neutrophils % (auto) 69.6 %; Platelet Count 319 K/uL (130-400); RDW Coefficient of Variation 16.3 % (11.5-14.5); RDW Standard Deviation 54.4 fL (36.4-46.3); Red Blood Count 3.21 M/uL (4.70-6.10); White Blood Count 3.13 K/ul (4.8-10.8)
[2025-04-29 07:08] LABS: BUN Creatinine Ratio 16.4 (10-20); Calcium 9.1 mg/dl (8.6-10.3); Creatinine Clr Calc Pharmacy 175.6 ml/min; Magnesium 1.8 mg/dl (1.7-2.4)
--- NOTE | 2025-04-29 12:13 | Hospitalist Progress Note ---
Date of Service April 29, 2025 Assessment & Plan (1) Neutropenia: Plan Assessment/plan Febrile neutropenia Chemotherapy-induced neutropenia. 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 Reports pain during swallowing and substernal chest pain for last couple of days WBC count of 1.25 with ANC of 240 last lab work from 2 months ago showed hemoglobin of 8.2 and WBC count of 5.3. Patient underwent chest x-ray which showed nodular density projecting over right superior lateral lung field. KUB did not show acute process. UA - negat. Blood cultx - ngtd CT chest - IMPRESSION: Previously visualized soft tissue mass in the left supraclavicular area measures 2.3 x 1.5 cm, previously 8.0 x 0.0 cm. Will continue vancomycin and zosyn; follow up on infectious work up Recently pt broke his tooth - consulted w/ Dr. Adkins - plan for tooth extraction today (04/28/25) Heme/onc consulted - discussed with - ok to proceed w/ extraction, cont. antibiotics Obtained GI evaluation given odynophagia associated with neutropenia. Started lidocaine viscous and nystatin solution scheduled on admission, will continue. 04/29- per OMFS stable for discharge postop, pathology pending. Other chronic medical conditions Type 2 diabetes mellituscontinue on insulin Hyperlipidemiacontinue on rosuvastatin History of CADcontinue on aspirin, Plavix hypertension continue on metoprolol, losartan Goutcontinue on allopurinol Full code DVT phylaxis heparin - hold for now (reviewed chart and pt has been refusing heparin, provider was not made aware) Admission and Anticipated Discharge Date Admission Date: April 25, 2025 Subjective Pt was seen with guards at bedside Stated that pain was controlled, able to open mouth without issue Review of Systems Review of Systems: All systems reviewed & are unremarkable except as noted in Subjective Physical Exam Physical Exam: General: Alert, oriented. No acute distress HEENT: NC/AT, able to open mouth CV: RRR Resp: Breath sounds clear bilaterally, no increased effort of breathing Abdomen: Soft, nontender Extremities: No edema in lower extremities bilaterally. Results & Data Results & Data Vital Signs (Past 12 Hours) Vital Signs Temp Pulse Resp BP Pulse Ox O2 Del Method 04/29/25 07:17 36.4 C L 64 16 127/74 97 Room Air 04/29/25 02:53 36.6 C 57 L 18 142/77 H 95 Room Air
--- NOTE | 2025-04-29 16:05 | Progress Note ---
Date of Service April 29, 2025 Assessment & Plan Admission and Anticipated Discharge Date Admission Date: April 25, 2025 Subjective POST OP NOTE: 24 hours The plan is D/C tomorrow AM The patient did very well post operatively, healing, He is not able to open better and the surgical site is as expected--waiting for Bx results Oral care is good. Sutures in place Reviewed that the slight paresthesia is normal and will resolve over time Reviewed oral care Reviewed home/oral care and rinsing Reviewed the pathology is still pending We will call [facility] nursing staff to make arrangements for follow up Overall: Responding well to recent oral surgery Pathology pending Results & Data Vital Signs (Past 12 Hours) Vital Signs Temp Pulse Resp BP Pulse Ox O2 Del Method 04/29/25 14:26 36.5 C 57 L 16 131/78 97 Room Air 04/29/25 07:17 36.4 C L 64 16 127/74 97 Room Air PG Care Time/CCT Total # of Minutes Spent Total Time Spent with Patient: Total time spent is greater than 50% in coordination of care (as documented) at patient's floor/unit and/or counseling patient: Coding Level of Care Code None
--- NOTE | 2025-04-29 16:16 | Operative Report ---
PG Post Operative Report Pre & Post Diagnosis Operation Date: 04/28/25 07:00 Pre-Op Diagnosis: Oral infection, fractured tooth, traumatic ulcer of oral mucosa Post-Op Diagnosis: Oral infection, fractured tooth, traumatic ulcer of oral mucosa I identified the patient and participated in the time-out.: Yes Procedure Operation Date: 04/28/25 07:00 Actual Procedures p Upper Left Mucobuccal Space Incision and Drainage,(Left) - Jace Adkins DMD s Extraction #16(Left) - Jace Adkins DMD Surgeon Jace Adkins, LYNETTE Clerical Production Worker none Estimated Blood Loss 4 Findings Consistent with Post-Op Diagnosis Specimens Sample Bx of large traumatic ulcer--this ucler was getting larger and very dense papilloma like raised lesion present 5 years Tooth # 16 was fractured and rubbing the buccal mucosa for 5 years Drains none Complications none Disposition Accompanied Patient To Recovery: Yes Indications large traumatic ulcer--this ulcer was getting larger and very dense papilloma like raised lesion present 5 years Tooth # 16 was fractured and rubbing the buccal mucosa for 5 years Description of Procedure Pre-op=Fractured # 16 Tooth # 16 was fractured and rubbing the buccal mucosa for 5 years Bx of large traumatic ulcer--this ulcer was getting larger and very dense papilloma like raised lesion present 5 years Once cleared for surgery general anesthesia was achieved, the eyes were protected by the anesthesia dept criteria.. A time out was take for patient ID, antibiotics, equipment and position verification once all agreed the procedure began. Local anesthesia was given into each area using Marcaine with a vasoconstrictor ( 1.8 ml per site). A throat pack was placed after the oral cavity was irrigated with saline. Once a surgical level of anesthesia was obtained and the local anesthesia was given time for the blocks the surgery was started. I turned my attention to the upper left fractured wisdom teeth first. Upper fractured wisdom teeth # 16 [id number] x 1 An Incision was made over the tuberosity. The full thickness flap was reflected, bone removed with a rongeur, the tooth was visualized, it was close to the sinus and removed with an 81 elevator. Bony margins were trimmed, smoothed and sutured closed with a 2-0 chromic x 2. There was no sinus involvement. Oral Maxillofacial Surgery Exam Left side 1 cm large traumatic ulcer/mass CPT 81425 Bx of large traumatic ulcer--this ulcer was getting larger and very dense papilloma like raised lesion present 5 years 1 cm large traumatic ulcer--this ulcer was getting larger and very dense papilloma like raised lesion present 5 years would come and go now larger and not going down-bleeds when touched very irritated surface. The fractured # 16 is sharp and rubbing the mucosal surface 1 cm exophytic mass with a papilloma like appearance, very friable tissue that bleed very easy A few escrow representative Incisions were made around the mass. The full thickness tissue biopsies were of the lesion was taken. The deep structures in the buccal mucosa of the mouth were not involved. The tissue margins were treated with a low dose electrosurg setting to coagulate any bleeding. The lesion was delivered for pathology evaluation. I inspected the sites to insure all bleeding was controlled. I removed the throat pack and suctioned the throat. Bilateral gauze pressure dressings were placed. All instrument and sponge count was correct. The patient was allowed to awake from the anesthesia. Once full awake the anesthesia tube was removed and the patient was taken to the recovery room with all vital sign stable. The patient tolerated the surgery very well. I will follow the patient in my office, Rx and instructions will be given upon discharge. I attest to the content of the Intraoperative Record and any orders documented therein. Any exceptions are noted below.
[2025-04-29 20:43] VITALS: RESP 18
[2025-04-29] MEDS: PANTOprazole 40 MG TAB PO SCH (21:38)
[2025-04-30 07:14] VITALS: BP 145/88; PULSE 74; TEMP 99.3; O2SAT 95
--- NOTE | 2025-04-30 11:26 | Communication Note ---
Date of Service: April 30, 2025 Patient dealing with oral surgery. I am going off service. If GI services needed please contact GI engineer conductor.
[2025-04-30] MEDS: AMOXICILLIN/CLAVULANATE 875 MG TAB PO SCH (12:39)
--- NOTE | 2025-04-30 13:41 | Discharge Summary ---
Discharge Summary Date of Service April 30, 2025 Principal Dx & Hospital Course #1 = Principal Diagnosis (1) Neutropenia: Plan Febrile neutropenia Chemotherapy-induced neutropenia. 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 Reports pain during swallowing and substernal chest pain for last couple of days WBC count of 1.25 with ANC of 240 last lab work from 2 months ago showed hemoglobin of 8.2 and WBC count of 5.3. Patient underwent chest x-ray which showed nodular density projecting over right superior lateral lung field. KUB did not show acute process. UA - negat. Blood cultx - ngtd CT chest - IMPRESSION: Previously visualized soft tissue mass in the left supraclavicular area measures 2.3 x 1.5 cm, previously 8.0 x 0.0 cm. Treated with vancomycin and zosyn, discharged with an additional 5 days of oral antibiotic treatment. Was also placed on empiric nystatin for possible candidiasis as cause of the odynophagia. GI consulted, recommended nystatin, no procedure. Pt completed treatment with po nystatin. Recently pt broke his tooth - consulted w/ Dr. Adkins - plan for tooth extraction on 04/28/25. Heme/onc consulted - previous physician discussed with - ok to proceed w/ extraction, cont. antibiotics Obtained GI evaluation given odynophagia associated with neutropenia. Started lidocaine viscous and nystatin solution scheduled on admission, will continue. 04/29- per OMFS stable for discharge postop, pathology negative for acute malignancy. Signout called and given to Dr. Votg on the day of discharge. Neutropenia resolved, stable postop, dishcarged with an additional 5 days of po Augmentin. Can take with a probiotic. Close PCP followup after discharge. Other chronic medical conditions Type 2 diabetes mellituscontinue on insulin Hyperlipidemiacontinue on rosuvastatin History of CADcontinue on aspirin, Plavix hypertension continue on metoprolol, losartan Goutcontinue on allopurinol Notes For Next Care Provider As above Medication Changes From Visit Augmentin 875mg BID x 5 more days Admission HPI Per Admitting Provider History obtained from chart review and interview with the patient. Patient had presented to the [facility] in January 2025; [place] [facility] [place] was found to have enlargement and progression of the neck mass. Patient was seen by ENT at that time who performed FNAC. It was positive for CD30 positive lymphoma. CT abdomen pelvis at that time did not show any lymphadenopathy or metastatic disease in pelvis/abdomen. He also underwent bone marrow biopsy to complete his staging with no evidence of lymphoma. Patient received CHOP (cyclophosphamide, doxorubicin, vinicristine, prednisone) while he was hospitalized. Patient's fever subsided after starting prednisone. Patient was then discharged out of the hospital on 02/03/2025. Patient follows up with Michael Carroll and is receiving chemotherapy. Patient received his last chemotherapy on 04/09/2025. Patient reports that he has been feeling weak since last 2 days. He reports substernal chest pain; increases with swallowing. He reports pain on his left jaw as well since last 2 days; reports that he had a part of his tooth come out last night. He also reports couple of episode of nausea/vomiting; he denies sore throat, abdominal pain, change in bowel or bladder habit. On presentation to the ED, he was normotensive, saturating well in room air, temperature of 37.7 C, normotensive. He was found to have WBC count of 1.25, hemoglobin of 10.7; last lab work from 2 months ago showed hemoglobin of 8.2 and WBC count of 5.3. Patient underwent chest x-ray which showed nodular density projecting over right superior lateral lung field. KUB did not show acute process. Patient was given cefepime and was referred for admission. Admission Exam Per Admitting Provider On physical examination; Constitutional: WD/WN, vitals as above, NAD, sitting up in bed, pleasant, conversing easily Face; swelling in right cheek present; no overlying erythema. No oral lesions present Chest; port in place; no overlying erythema Respiratory: normal respiratory effort, lungs clear to auscultation, no wheeze, rales, rhonchi. Normal insp/exp effort, no accessory muscle use Cardiovascular: RRR, no murmur, no edema Vessels: no JVD or carotid bruit Chest: normal inspection of chest Abdomen: normal bowel sounds, soft, nontender, no hepatosplenomegaly Musculoskeletal: no cyanosis or clubbing, extremities motor strength 5/5 Skin: no rashes, warm and dry normal turgor Neurologic: PERRL, EOMI, accommodation nl, no face palsy, no dysarthria CN's II- XI intact bilaterally and moves all extremities Psychiatric: A+Ox3, euthymic affect Discharge Exam General: Alert, oriented. No acute distress HEENT: NC/AT, able to open mouth CV: RRR Resp: Breath sounds clear bilaterally, no increased effort of breathing Abdomen: Soft, nontender Extremities: No edema in lower extremities bilaterally. Updated Medication List Medication Instructions Recorded Confirmed Type acetaminophen 500 mg tablet 500 mg PO TID PRN Pain 01/14/25 04/25/25 History (Tylenol Extra Strength) ascorbic acid (vitamin C) 500 mg 500 mg PO DAILY 01/14/25 04/25/25 History tablet (Vitamin C) aspirin 81 mg tablet,delayed 81 mg PO DAILY 01/14/25 04/25/25 History release atorvastatin 80 mg tablet 80 mg PO DAILY 01/14/25 04/25/25 History clopidogrel 75 mg tablet (Plavix) 75 mg PO DAILY 01/14/25 04/25/25 History cyanocobalamin (vitamin B-12) 500 500 mcg PO DAILY 01/14/25 04/25/25 History mcg tablet (Vitamin B-12) glipizide 5 mg tablet 5 mg PO BID 01/14/25 04/25/25 History losartan 100 mg tablet 100 mg PO DAILY 01/14/25 04/25/25 History metformin 1,000 mg tablet 1,000 mg PO BID 01/14/25 04/25/25 History metoprolol tartrate 50 mg tablet 50 mg PO BID 01/14/25 04/25/25 History allopurinol 300 mg tablet 300 mg PO BID 04/25/25 04/25/25 History loperamide 2 mg tablet (Diamode) 2 mg PO ONCE 04/25/25 04/25/25 History omeprazole 20 mg capsule,delayed 20 mg PO BID 04/25/25 04/25/25 History release ondansetron 4 mg disintegrating 8 mg PO BID PRN NAUSEA/VOMITING 04/25/25 04/25/25 History tablet prednisone 20 mg tablet 100 mg PO DAILY PRN PER CANCER CARE 04/25/25 04/25/25 History prochlorperazine maleate 10 mg 10 mg PO QID PRN NAUSEA/VOMITING 04/25/25 04/25/25 History tablet (Compazine) amoxicillin 875 mg-potassium 1 tab PO BIDM #10 tabs 04/30/25 Rx clavulanate 125 mg tablet Hospital Stay Data Consultations 04/25/25 18:54 ED Decision to Admit Stat 04/25/25 22:03 Consult Gastroenterology Routine Consult Oncology Routine 04/26/25 18:09 Consult Oromaxillofacial Surgery Routine Procedures Performed Operation Date: 04/28/25 07:00 Actual Procedures p Upper Left Mucobuccal Space Incision and Drainage,(Left) - Jace Adkins DMD s Extraction #16(Left) - Jace Adkins DMD Diagnostic Imagining Performed 04/25/25 19:12 CT chest diagnostic wo con Routine 04/25/25 20:01 CT face [CT facial bones w con] Routine Chest X-Ray 04/25/25 17:07 Exam: Portable chest. History: Sepsis. Comparison: Scalp view from CT dated December 26, 2024 Findings: Right chest port catheter. There is a nodular density projecting over the peripheral superior lateral aspect of the right lung field. Suspect something outside the patient. Cardiomediastinal silhouette is within normal limits. Pulmonary vasculature is within normal limits. Prominent nonspecific perihilar and infrahilar interstitial markings. No consolidation or appreciated pleural disease. Impression: 1.Nodular density projecting over the right superior lateral lung field questionably representing something outside the patient. Correlate with clinical data. Pulmonary nodule cannot be excluded on the single view exam. 2. Otherwise no acute process. Electronically signed by Eric Ludwig 04-25-2025 6:21 PM KUB X-Ray 04/25/25 17:07 Exam: KUB. History: Abdominal pain. Comparison:None. Findings: Likely button artifact projecting over the midline lower pelvis. Upper abdomen not included on this exam. Calcification projecting over the left abdomen. Small left renal calculus not excluded. Likely pelvic phleboliths. Impression: Question inferior left renal pole calculus. No appreciated acute process. Electronically signed by Eric Ludwig 04-25-2025 6:[address] 04/25/25 19:12 Exam(s): CT CHEST Without Contrast EXAM: CT Chest Without Intravenous Contrast CLINICAL HISTORY: Reason for exam: RULE OUT MASS. TECHNIQUE: Axial computed tomography images of the chest without intravenous contrast. CTDI is 21 mGy and DLP is 732 mGy-cm. Automated exposure control was utilized for the study. A dose lowering technique was utilized adhering to the principles of ALARA. COMPARISON: 12/26/[address] FINDINGS: Lungs: No consolidation or interstitial edema. No suspicious lesion. Pleural space: No pleural effusion or pneumothorax. Heart: Unremarkable. Bones/joints: No acute findings. Soft tissues: Previously visualized soft tissue mass in the left supraclavicular area measures 2.3 x 1.5 cm (series 2 image 1), previously 8.0 x 0.0 cm. Vasculature: Unremarkable. Lymph nodes: No adenopathy.. Tubes, lines and devices: Port-A-Cath in place. IMPRESSION: Previously visualized soft tissue mass in the left supraclavicular area measures 2.3 x 1.5 cm, previously 8.0 x 0.0 cm. Electronically signed by: Candelario Akers MD 04/25/25 20:[address] 04/25/25 20:01 Exam(s): CT FACIAL With Contrast IV Amt: 92ml EXAM: CT Maxillofacial With Intravenous Contrast CLINICAL HISTORY: Reason for exam: right jaw pain. TECHNIQUE: Axial computed tomography images of the face with intravenous contrast. CTDI is 36.26 mGy and DLP is 704.51 mGy-cm. Automated exposure control was utilized for the study. A dose lowering technique was utilized adhering to the principles of ALARA. CONTRAST: Patient received 92ml of IV contrast COMPARISON: No relevant prior studies available. FINDINGS: Bones/joints: No acute fracture. We will appearance of the mandible and temporomandibular joints. Soft tissues: Unremarkable. Orbits: Unremarkable. Sinuses: Unremarkable. IMPRESSION: No acute abnormality. Electronically signed by: Candelario Akers MD 04/25/25 20:51 PM Pending Results Patient Have Any Pending Studies at Discharge: Yes Discharge Instructions Given to Patient (Per Discharging Provider) ADDITIONAL ACTIVITY RECOMMENDATIONS: * [place] teeth after every meal. It is very important to keep your mouth clean to prevent infection. * Starting tonight rinse with the Peridex as directed then 2 x a day * it is very important to keep well hydrated, this prevents fever and possible dry socket pain SPECIAL CARE INSTRUCTIONS: *It is not uncommon that between day 2-4 that your swelling will be at its worst this is very normal, do not be alarmed. * Keep ice on the side of your face for the next 24 to 36 hours. This will help keep the swelling down. * Tomorrow start rinsing your mouth with 1/2 teaspoon salt in 8 ounces warm water. This rinse should be used every 4-6 hours. * You may experience some discomfort for a few days. If pain or swelling increases, Call Dr Adkins * Return to the office for a follow up check up on: My devin will call the [facility] nursing to arrange follow up for 10-14 days * office address--[address] phone # [phone] Total Time Total Time Spent Total Time Spent (In Minutes): 60
== END 2025-04-30 15:07 | DRG 982 ==
LOC: ED 16:24 → 3E 20:01 → SUATTDRO 20:01 → 3E 21:34

== ENCOUNTER 2025-05-28 01:55 | Inpatient (IN) ==
[2025-05-28] MEDS ORDERED: VANCOMYCIN CONSULT ACTIVE PRN (02:22)
--- NOTE | 2025-05-28 02:25 | Emergency Department Note ---
Impression & Plan Fever and neutropenia, T-cell lymphoma, Pancytopenia, Rhinovirus infection ED Provider Note NAME: CLAY [id number] MANSI AGE: 44 SEX: M : 1980 ARRIVES VIA: Ambulance INFORMANT: Patient ED PROVIDER(S): Santhosh Tabares MD CHIEF COMPLAINT: Fever, low blood counts, referred PLAN: Disposition: Admit MEDICAL DECISION MAKING: The patient is a 44-year-old gentleman, present inmate at [facility] with a past medical history of T-cell lymphoma who presents to the emergency department via EMS and accompanied by guards for evaluation of fever with recent low blood counts in the setting of receiving chemotherapy approximately 10 days ago for his T-cell lymphoma. Patient reports being tired and weak and experienced nausea and vomiting today. He reports dry cough but reports this happens periodically. Denies any history of asthma or COPD. He denies any smoking history. He has any chest pain or shortness of breath. Of note, patient has a recent history of reactive squamous mucosa status post surgical debridement on 04/29 with subsequent reassuring 2-week postop follow-up on 05/12. On my evaluation the patient is fatigued appearing with no distress, febrile to 39.3 with heart in the 110s and vital signs otherwise stable. Appears clinically dry. Subtle rhonchi of bilateral lower lung day and otherwise clear with normal respiratory effort. EKG without overt acute ischemia. CXR with prominent peripheral and perihilar bronchovascular markings which given the clinical context is suspicious for pneumonia per my personal preliminary review/interpretation. WBC 0.97 with ANC of 0.45 consistent with neutropenia. H/H 8.7/26.2 decreased from prior and platelets 1 10K also consistent from prior and so demonstrating pancytopenia in the setting of the patient's recent chemotherapy. Chemistry without metabolic acidosis. BUN/creatinine 20 consistent with patient's clinical dry appearance. Magnesium 1.5 with IV repletion provided. LFTs unremarkable. High-sensitivity troponin 18.2, within normal limits. Lipase is normal. Procalcitonin is not elevated. Respiratory BioFire did result positive for enterovirus/rhinovirus. Given the patient's fever and neutropenia in the setting of chemotherapy empiric treatment initiated with IV cefepime and vancomycin following obtaining a blood cultures. Patient was administered 30 cc/KG of IV fluid hydration per IBW with 2500 cc of normal saline. [facility] who will [facility] the patient for admission. Further management per admitting team. Triage Nursing notes reviewed and agree them. Prior/external medical records reviewed Vital Signs: reviewed Differential diagnosis: Viral syndrome, otitis, pharyngitis, pneumonia, influenza, meningitis, urinary tract infection, sepsis, bacteremia, as well as other pathologies. ER treatment provided: See below. Diagnostics interpreted by me: ECG: Sinus tachycardia, 107 bpm, no ectopy, no overt ST ovation or depression, QTc 445, QRS 82. Cardiac Monitoring: An order for continuous cardiac monitoring was placed and demonstrated sinus tachycardia, 107 bpm, no ectopy. Laboratory studies: See below Imaging studies: See below Consultation(s): [facility], who will evaluate the patient for admission. HPI: Per MDM. ROS: See above HPI for pertinent positives & negatives. A total of 10 systems reviewed and were otherwise negative. VITALS:See Below PHYSICAL EXAMINATION: GENERAL: Awake, alert, fatigued-appearing, in no distress HENT: Normocephalic, atraumatic. Oropharynx with dry mucous membranes and otherwise unremarkable. EYES: Normal conjunctiva. Sclera non-icteric. NECK: Supple. No nuchal rigidity. FROM. No JVD. RESPIRATORY: Subtle rhonchi bilateral lower lung day and otherwise clear with normal respiratory effort. CARDIAC: Tachycardic rate, normal rhythm. Extremities warm and well perfused. Pulses equal. ABDOMEN: Soft, non-distended. No tenderness to palpation. No rebound or guarding. No masses. MUSCULOSKELETAL: Chest examination reveals no tenderness. Right upper chest port site clean dry and intact. The back is symmetrical on inspection without obvious abnormality. There is no CVA tenderness to palpation. No joint edema. LOWER EXTREMITIES: Calves are equal size bilaterally and non-tender. No edema. No discoloration. NEURO: Normal sensorium. No sensory or motor deficits noted. SKIN: No rash or jaundice noted. 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 Surgical History H/O tooth extraction (04/28/25) Extraction Tooth #16(Left) - Jace Adkins DMD History of incision and drainage (04/28/25) Left Facial Area Incision and Drainage - Jace Adkins DMD Hx of heart artery stent Hx of hand surgery Social History Smoking Status: Never smoker Tobacco Type: Declines Hx Alcohol Use: No Hx Substance Use: No Preferred Language: [place] Communication Ability: Effective Visual Impairment: No Limitations Senior Digital Designer Required: No Beliefs That Will Affect Care: None Current Living Situation: Other Current Living Situation Comment: [facility] Feels Safe at Home: Yes Safety Concerns: Feels Safe At This Time Assistive Devices: Glasses Allergies Allergies Allergy/AdvReac Type Severity Reaction Status Date / Time No Known Allergies Allergy Verified 05/12/25 11:25 Home Meds Home Medications Medication Instructions Recorded Confirmed acetaminophen 500 mg tablet 500 mg PO TID PRN Pain 01/14/25 05/28/25 (Tylenol Extra Strength) ascorbic acid (vitamin C) 500 mg 500 mg PO DAILY 01/14/25 05/28/25 tablet (Vitamin C) aspirin 81 mg tablet,delayed 81 mg PO DAILY 01/14/25 05/28/25 release atorvastatin 80 mg tablet 80 mg PO DAILY 01/14/25 05/28/25 clopidogrel 75 mg tablet (Plavix) 75 mg PO DAILY 01/14/25 05/28/25 cyanocobalamin (vitamin B-12) 500 500 mcg PO DAILY 01/14/25 05/28/25 mcg tablet (Vitamin B-12) glipizide 5 mg tablet 5 mg PO BID 01/14/25 05/28/25 losartan 100 mg tablet 100 mg PO DAILY 01/14/25 05/28/25 metformin 1,000 mg tablet 1,000 mg PO BID 01/14/25 05/28/25 metoprolol tartrate 50 mg tablet 50 mg PO BID 01/14/25 05/28/25 allopurinol 300 mg tablet 300 mg PO BID 04/25/25 05/28/25 prochlorperazine maleate 10 mg 10 mg PO QID PRN NAUSEA/VOMITING 04/25/25 05/28/25 tablet (Compazine) cefdinir 300 mg capsule 300 mg PO BID 05/28/25 05/28/25 gabapentin 100 mg capsule 100 mg PO TID 05/28/25 05/28/25 pantoprazole 40 mg tablet,delayed 40 mg PO DAILY 05/28/25 05/28/25 release simethicone 80 mg chewable tablet 160 mg PO Q8 PRN hiccoughs 05/28/25 05/28/25 sodium chloride 0.9 % 1,000 ml IV DAILY 05/28/25 05/28/25 Results & Data (ED) Vital Signs Vital Signs - 24 hr 05/28/25 02:06 05/28/25 02:09 05/28/25 02:15 Temperature 39.3 C H Temperature Source Oral Pulse Rate 112 H 101 H 107 H Pulse Rate [Finger] Pulse Rate from SpO2 Sensor 102 H 107 H Pulse Rhythm Regular Pulse Rhythm [Finger] Pulse Strength Normal Pulse Strength [Finger] Respiratory Rate 22 19 20 Respiratory Effort / Characteristics Non-Labored Spontaneous Respiratory Depth Normal Respiratory Pattern Regular Blood Pressure 124/83 124/83 111/83 Blood Pressure [Left Arm] Blood Pressure Mean 96 96 92 Blood Pressure Mean [Left Arm] Blood Pressure Position [Left Arm] Pulse Oximetry 95 95 95 Oxygen Delivery Method Room Air Sepsis Recent Fever Within 48 Hours Yes Sepsis New/Unexplained Change in Mental Status N/A Sepsis Action Taken by Nursing Physician Notified 05/28/25 02:21 05/28/25 03:00 05/28/25 03:00 Temperature Temperature Source Pulse Rate 108 H 103 H Pulse Rate [Finger] 109 H Pulse Rate from SpO2 Sensor 103 H Pulse Rhythm Pulse Rhythm [Finger] Regular Pulse Strength Pulse Strength [Finger] Normal Respiratory Rate 20 21 Respiratory Effort / Characteristics Respiratory Depth Normal Respiratory Pattern Blood Pressure 112/83 Blood Pressure [Left Arm] 112/63 Blood Pressure Mean 92 Blood Pressure Mean [Left Arm] 79 Blood Pressure Position [Left Arm] Lying Pulse Oximetry 96 95 Oxygen Delivery Method Room Air Sepsis Recent Fever Within 48 Hours Sepsis New/Unexplained Change in Mental Status Sepsis Action Taken by Nursing 05/28/25 03:15 05/28/25 03:30 05/28/25 03:45 Temperature Temperature Source Pulse Rate 103 H 110 H 100 H Pulse Rate [Finger] Pulse Rate from SpO2 Sensor 103 H 109 H Pulse Rhythm Pulse Rhythm [Finger] Pulse Strength Pulse Strength [Finger] Respiratory Rate 18 24 22 Respiratory Effort / Characteristics Respiratory Depth Respiratory Pattern Blood Pressure 127/84 123/59 L 100/63 Blood Pressure [Left Arm] Blood Pressure Mean 98 80 72 Blood Pressure Mean [Left Arm] Blood Pressure Position [Left Arm] Pulse Oximetry 94 95 94 Oxygen Delivery Method Sepsis Recent Fever Within 48 Hours Sepsis New/Unexplained Change in Mental Status Sepsis Action Taken by Nursing 05/28/25 04:00 05/28/25 04:15 05/28/25 04:30 Temperature Temperature Source Pulse Rate 94 H 90 86 Pulse Rate [Finger] Pulse Rate from SpO2 Sensor 95 H 84 Pulse Rhythm Pulse Rhythm [Finger] Pulse Strength Pulse Strength [Finger] Respiratory Rate 19 20 18 Respiratory Effort / Characteristics Respiratory Depth Respiratory Pattern Blood Pressure 106/70 124/78 103/55 L Blood Pressure [Left Arm] Blood Pressure Mean 82 91 71 Blood Pressure Mean [Left Arm] Blood Pressure Position [Left Arm] Pulse Oximetry 94 94 95 Oxygen Delivery Method Sepsis Recent Fever Within 48 Hours Sepsis New/Unexplained Change in Mental Status Sepsis Action Taken by Nursing 05/28/25 04:45 05/28/25 04:46 05/28/25 05:00 Temperature 37.3 C Temperature Source Oral Pulse Rate 80 82 Pulse Rate [Finger] Pulse Rate from SpO2 Sensor 78 Pulse Rhythm Pulse Rhythm [Finger] Pulse Strength Pulse Strength [Finger] Respiratory Rate 14 16 Respiratory Effort / Characteristics Respiratory Depth Respiratory Pattern Blood Pressure 100/61 101/60 Blood Pressure [Left Arm] Blood Pressure Mean 74 71 Blood Pressure Mean [Left Arm] Blood Pressure Position [Left Arm] Pulse Oximetry 96 96 Oxygen Delivery Method Sepsis Recent Fever Within 48 Hours Sepsis New/Unexplained Change in Mental Status Sepsis Action Taken by Nursing 05/28/25 05:15 Temperature Temperature Source Pulse Rate 77 Pulse Rate [Finger] Pulse Rate from SpO2 Sensor Pulse Rhythm Pulse Rhythm [Finger] Pulse Strength Pulse Strength [Finger] Respiratory Rate 18 Respiratory Effort / Characteristics Respiratory Depth Respiratory Pattern Blood Pressure 93/62 L Blood Pressure [Left Arm] Blood Pressure Mean 72 Blood Pressure Mean [Left Arm] Blood Pressure Position [Left Arm] Pulse Oximetry 97 Oxygen Delivery Method Sepsis Recent Fever Within 48 Hours Sepsis New/Unexplained Change in Mental Status Sepsis Action Taken by Nursing Laboratory Data Attestation: I reviewed the patient's lab results. 05/28/25 07:05 05/28/25 07:05 Lab Results 05/28/25 05/28/25 Range/Units 02:45 04:45 WBC 0.97 L* (4.8-10.8) K/ul RBC 2.92 L (4.70-6.10) M/uL Hgb 8.7 L (14.0-18.0) g/dl Hct 26.2 L (42.0-52.0) % MCV 89.7 (80.0-100.0) fL MCH 29.8 (25.0-34.0) pg MCHC 33.2 (32.0-36.0) g/dL RDW Std Deviation 52.4 H (36.4-46.3) fL RDW Coeff of Marguerite 16.1 H (11.5-14.5) % Plt Count 110 L (130-400) K/uL MPV 12.0 (9.4-12.4) fL Neutrophils % (Manual) 46 % Lymphocytes % (Manual) 38 % Monocytes % (Manual) 10 % Eosinophils % (Manual) 6 % Neutrophils # (Manual) 0.45 L (1.40-6.50) K/uL Total Absolute Neuts 0.45 L* (1.4-6.5) K/uL Lymphocytes # (Manual) 0.37 L (1.2-3.4) K/uL Total Abs Lymphocytes 0.37 L (1.2-3.4) K/uL Monocytes # (Manual) 0.10 L (0.11-0.59) K/uL Eosinophils # (Manual) 0.06 (0-0.50) K/uL Dohle Bodies 2+ PT 11.2 (9.0-12.0) Seconds INR 1.0 (0.9-1.1) Sodium 132 L (136-145) mmol/L Potassium 3.9 (3.5-5.1) mmol/L Chloride 99 (98-107) mmol/L Carbon Dioxide 25 (21-32) mmol/L Anion Gap 8 (3-11) BUN 16 (6-23) mg/dl Creatinine 0.78 (0.6-1.4) mg/dl Est Cr Clr Drug Dosing 149.3 ml/min eGFR 112.07 BUN/Creatinine Ratio 20.5 H (10-20) Glucose 141 H (70-99(Fasting)) mg/dl Lactate 1.0 (0.4-2.0) mmol/L Calcium 9.0 (8.6-10.3) mg/dl Magnesium 1.5 L (1.7-2.4) mg/dl Total Bilirubin 0.6 (0.2-1.0) mg/dl Direct Bilirubin 0.1 (0-0.2) mg/dl AST 23 (13-39) U/L ALT 18 (7-52) U/L Alkaline Phosphatase 72 (34-104) U/L Troponin I High Sens 18.2 (0-20) pg/ml Total Protein 8.0 (6.0-8.3) gm/dl Albumin 3.6 (3.4-5.0) gm/dl Lipase 27 (11-82) U/L Procalcitonin 0.13 (0-0.5) ng/ml Adenovirus (PCR) Not Detected (NotDetected) B. pertussis DNA (PCR) Not Detected (NotDetected) B.parapertussis DNA PCR Not Detected (NotDetected) C. pneumoniae DNA (PCR) Not Detected (NotDetected) Coronavirus OC43 (PCR) Not Detected (NotDetected) Coronavirus HKU1 (PCR) Not Detected (NotDetected) Coronavirus 229E (PCR) Not Detected (NotDetected) SARS-CoV-2 (PCR) Not Detected (NotDetected) Coronavirus NL63 (PCR) Not Detected (NotDetected) Human Metapneumovir PCR Not Detected (NotDetected) Influenza Type A (PCR) Not Detected (NotDetected) Influenza Type B (PCR) Not Detected (NotDetected) M. pneumoniae (PCR) Not Detected (NotDetected) Parainfluenza 1 (PCR) Not Detected (NotDetected) Parainfluenza 2 (PCR) Not Detected (NotDetected) Parainfluenza 3 (PCR) Not Detected (NotDetected) Parainfluenza 4 (PCR) Not Detected (NotDetected) RSV (PCR) Not Detected (NotDetected) Entero/Rhino (PCR) DETECTED A (NotDetected) Administered Medications Allopurinol (Allopurinol 300 Mg Tab) 300 mg PO BID YOLETTE Stop: 06/27/25 08:59 Last Admin: 05/28/25 08:15 Dose: 300 mg Documented By: BT Ascorbic Acid (Ascorbic Acid 500 Mg Tab) 500 mg PO DAILY YOLETTE Stop: 06/27/25 08:59 Last Admin: 05/28/25 08:15 Dose: 500 mg Documented By: BT Aspirin (Aspirin 81 Mg Ectab) 81 mg PO DAILY YOLETTE Stop: 06/27/25 08:59 Last Admin: 05/28/25 08:15 Dose: 81 mg Documented By: BT Atorvastatin Calcium (Atorvastatin 40 Mg Tab) 80 mg PO DAILY YOLETTE Stop: 06/27/25 08:59 Last Admin: 05/28/25 08:15 Dose: 80 mg Documented By: BT Clopidogrel Bisulfate (Clopidogrel Bisulfate 75 Mg Tab) 75 mg PO DAILY YOLETTE Stop: 06/27/25 08:59 Last Admin: 05/28/25 08:15 Dose: 75 mg Documented By: BT Cyanocobalamin (Cyanocobalamin (B-12) 500 Mcg Tablet) 500 mcg PO DAILY YOLETTE Stop: 06/27/25 08:59 Last Admin: 05/28/25 08:15 Dose: 500 mcg Documented By: BT Doxycycline Hyclate (Doxycycline Hyclate 100 Mg Cap) 100 mg PO BID [facility] Stop: 06/02/25 08:59 Last Admin: 05/28/25 08:15 Dose: 100 mg Documented By: BT Enoxaparin Sodium (Enoxaparin Inj 40 Mg/0.4 Ml Syr) 40 mg SQ Q24H YOLETTE Stop: 06/27/25 06:59 Last Admin: 05/28/25 08:14 Dose: 40 mg Documented By: BT Gabapentin (Gabapentin 100 Mg Cap) 100 mg PO TID YOLETTE Stop: 06/27/25 08:59 Last Admin: 05/28/25 13:53 Dose: 100 mg Documented By: Admin: 05/28/25 08:15 Dose: 100 mg Documented By: BT Cefepime HCl (Maxipime 2000mg) 2,000 mg in 20 mls @ 5 mls/min IV Q8H [facility]; Protocol Stop: 06/02/25 11:29 Last Admin: 05/28/25 12:30 Dose: 5 mls/min Documented By: BT Sodium Chloride (Nss) 1,000 mls @ 125 mls/hr IV .Q8H YOLETTE Stop: 05/31/25 06:31 Last Admin: 05/28/25 15:08 Dose: 125 mls/hr Documented By: Infusion: 05/28/25 14:58 Dose: Infused Documented By: Admin: 05/28/25 06:58 Dose: 125 mls/hr Documented By: HDC Acetaminophen (Ofirmev) 1,000 mg in 100 mls @ 400 mls/hr IV Q8H PRN PRN Reason: Pain or Fever Stop: 05/31/25 06:31 Last Infusion: 05/28/25 10:46 Dose: Infused Documented By: Admin: 05/28/25 10:09 Dose: 400 mls/hr Documented By: BT Vancomycin HCl 1,500 mg/ (Sodium Chloride) 530 mls @ 200 mls/hr IV Q8H YOLETTE Stop: 06/02/25 11:59 Last Admin: 05/28/25 12:29 Dose: 200 mls/hr Documented By: BT Insulin Aspart (Insulin Aspart Per Unit Charge) 0 units SC ACHS YOLETTE Stop: 06/27/25 07:29 Last Admin: 05/28/25 12:19 Dose: Not Given Documented By: Admin: 05/28/25 08:18 Dose: Not Given Documented By: BT Metoprolol Tartrate (Metoprolol Tartrate 50 Mg Tab) 50 mg PO BID YOLETTE Stop: 06/27/25 08:59 Last Admin: 05/28/25 08:16 Dose: 50 mg Documented By: BT Pantoprazole Sodium (Pantoprazole 40 Mg Tab) 40 mg PO DAILY YOLETTE Stop: 06/27/25 08:59 Last Admin: 05/28/25 08:16 Dose: 40 mg Documented By: BT Discontinued Medications Cefepime HCl (Maxipime 2000mg) 2,000 mg in 20 mls @ 5 mls/min IV NOW STA; Protocol Stop: 05/28/25 02:25 Last Admin: 05/28/25 03:21 Dose: 5 mls/min Documented By: NARich Vancomycin HCl 2,750 mg/ (Sodium Chloride) 555 mls @ 200 mls/hr IV NOW ONE Stop: 05/28/25 05:08 Last Infusion: 05/28/25 07:05 Dose: Infused Documented By: Admin: 05/28/25 03:47 Dose: 200 mls/hr Documented By: AMANDA Sodium Chloride (Nss) 500 mls @ 999 mls/hr IV .Q31M ONE Stop: 05/28/25 02:52 Last Infusion: 05/28/25 04:28 Dose: Infused Documented By: Admin: 05/28/25 03:50 Dose: 999 mls/hr Documented By: AMANDA Sodium Chloride (Nss) 1,000 mls @ 999 mls/hr IV .Q1H1M YOLETTE Stop: 05/28/25 04:30 Last Admin: 05/28/25 08:16 Dose: Not Given Documented By: Infusion: 05/28/25 07:00 Dose: Infused Documented By: Admin: 05/28/25 03:50 Dose: 999 mls/hr Documented By: AMANDA Acetaminophen (Ofirmev) 1,000 mg in 100 mls @ 400 mls/hr IV NOW STA Stop: 05/28/25 02:36 Last Infusion: 05/28/25 03:40 Dose: Infused Documented By: Admin: 05/28/25 03:21 Dose: 400 mls/hr Documented By: AMANDA Famotidine (Pepcid 20mg Iv Push) 20 mg in 5 mls @ 2.5 mls/min IV NOW STA Stop: 05/28/25 02:25 Last Admin: 05/28/25 03:21 Dose: 2.5 mls/min Documented By: AMANDA Magnesium Sulfate/Dextrose (Magnesium Sulfate / D5w) 1 gm in 100 mls @ 100 mls/hr IV NOW STA Stop: 05/28/25 04:55 Last Admin: 05/28/25 08:16 Dose: Not Given Documented By: BT Magnesium Sulfate/Dextrose (Magnesium Sulfate / D5w) 1 gm in 100 mls @ 50 mls/hr IV Q2H YOLETTE Stop: 05/28/25 08:44 Last Infusion: 05/28/25 10:47 Dose: Infused Documented By: Admin: 05/28/25 08:45 Dose: 50 mls/hr Documented By: Infusion: 05/28/25 08:38 Dose: Infused Documented By: Admin: 05/28/25 06:38 Dose: 50 mls/hr Documented By: CYRUS Ondansetron HCl (Ondansetron Inj 2 Mg/Ml 2 Ml Vial) 4 mg IV NOW STA Stop: 05/28/25 02:25 Last Admin: 05/28/25 03:21 Dose: 4 mg Documented By: AMANDA Imaging Data Radiologist's Impression: Chest X-Ray 05/28/25 02:22 EXAM: XR chest 1V portable CLINICAL HISTORY: Sepsis TECHNIQUE: Radiograph of chest was acquired. COMPARISON: FINDINGS: Prominent peripheral and perihilar bronchovascular markings in bilateral lung day are likely of congestive etiology, clinical correlation is recommended. Still seen right port insitu with tip in right cavoatrial junction Rest of the lungs are clear and well-expanded with no pulmonary infiltrate or pleural effusion. The cardiomediastinal silhouette is within normal limits. No acute osseous abnormality. IMPRESSION: Prominent peripheral and perihilar bronchovascular markings in bilateral lung day are likely of congestive etiology, clinical correlation is recommended. No new findings Electronically signed by Farshad Stone 05-28-2025 04:11 AM Discharge Plan Visit Data Chief Complaint: Illness Stated Complaint: fatigue, weak ED Provider: Santhosh Tabares Discharge Problem: Fever and neutropenia, T-cell lymphoma, Pancytopenia, Rhinovirus infection Patient Disposition: Admitted As Inpatient Condition: Serious Discharge Instructions Interventions: ED Discharge Assessment Last Done: 05/28/25 05:55
[2025-05-28] MEDS: CEFEPIME 2000MG 2,000 MG/20 ML SYR IV STA (03:21)
[2025-05-28] MEDS: FAMOTIDINE 20MG IV PUSH 20 MG/5 ML SYR IV STA (03:21)
[2025-05-28] MEDS: ONDANSETRON INJ 2 MG/ML 2 ML VIAL IV STA (03:21)
[2025-05-28] MEDS: ACETAMINOPHEN 1,000 MG/100 ML VIAL IV STA ×2 (03:21→17:22)
[2025-05-28 03:31] LABS: Alanine Aminotransferase 18.0 U/L (7-52); Alkaline Phosphatase 72.0 U/L (34-104); Anion Gap 8.0 (3-11); Bilirubin,Total 0.6 mg/dl (0.2-1.0); Blood Urea Nitrogen 16.0 mg/dl (6-23); Calcium 9.0 mg/dl (8.6-10.3); Carbon Dioxide 25.0 mmol/L (21-32); Chloride 99.0 mmol/L (98-107); Creatinine Clr Calc Pharmacy 149.3 ml/min; Glucose 141.0 mg/dl (70-99(Fasting)); Lipase 27.0 U/L (11-82); Magnesium 1.5 mg/dl (1.7-2.4); Potassium 3.9 mmol/L (3.5-5.1); Sodium 132.0 mmol/L (136-145); Total Protein 8.0 gm/dl (6.0-8.3)
[2025-05-28 03:46] LABS: INR 1.0 (0.9-1.1); Prothrombin Time 11.2 Seconds (9.0-12.0)
[2025-05-28] MEDS: VANCOMYCIN HCL 2,750 MG in SODIUM CHLORIDE 0.9% 500 ML IV ONE (03:47)
[2025-05-28] MEDS: SODIUM CHLORIDE 0.9% 1,000 ML IV SCH ×2 (03:50→06:58)
[2025-05-28] MEDS: SODIUM CHLORIDE 0.9% 500 ML IV ONE (03:50)
--- NOTE | 2025-05-28 04:11 | XRay Report ---
EXAM: XR chest 1V portable CLINICAL HISTORY: Sepsis TECHNIQUE: Radiograph of chest was acquired. COMPARISON: FINDINGS: Prominent peripheral and perihilar bronchovascular markings in bilateral lung day are likely of congestive etiology, clinical correlation is recommended. Still seen right port insitu with tip in right cavoatrial junction Rest of the lungs are clear and well-expanded with no pulmonary infiltrate or pleural effusion. The cardiomediastinal silhouette is within normal limits. No acute osseous abnormality. IMPRESSION: Prominent peripheral and perihilar bronchovascular markings in bilateral lung day are likely of congestive etiology, clinical correlation is recommended. No new findings Electronically signed by Farshad Stone 05-28-2025 04:11 AM
[2025-05-28 04:14] LABS: ALC (manual) 0.37 K/uL (1.2-3.4); ANC (manual) 0.45 K/uL (1.4-6.5); Dohle Bodies 2+; Hematocrit (blood only) 26.2 % (42.0-52.0); Hemoglobin 8.7 g/dl (14.0-18.0); Mean Corpuscular Hemoglobin 29.8 pg (25.0-34.0); Mean Corpuscular Volume 89.7 fL (80.0-100.0); Platelet Count 110 K/uL (130-400); RDW Standard Deviation 52.4 fL (36.4-46.3); Red Blood Count 2.92 M/uL (4.70-6.10); White Blood Count 0.97 K/ul (4.8-10.8)
--- NOTE | 2025-05-28 05:27 | History & Physical Report ---
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 Patient last chemo was on 05/18/2025. He says he had couple more cycles of chemo.Following with [facility]. Since yesterday is having fevers. Nauseous. Denies any cough. Denies any abdominal pain. No diarrhea or constipation. Says appetite is okay. Denies chest pain. Denies shortness of breath. Denies headaches. Denies any body aches. Vision is okay. No runny nose or sore throat. No difficulty swallowing. Normal bowel movements. Micturating okay. Currently resting comfortably and hemodynamically stable. Fever and neutropenia Neutropenia precautions Possible pneumonia Will follow CT chest Empirically received cefepime and Vanco in ER which will be continued Will add Doxy Will follow respiratory BioFire Will follow cultures Close monitor CD30 positive lymphoma Pancytopenia On chemo. Last chemo 05/18/2025 WBC 0.9. Hemoglobin 8.7 and platelets 121 Will consult heme-onc Diabetes Hold home p.o. medications Sliding scale Will monitor Hypertension Continue metoprolol with holding parameters Holding losartan for now as blood pressure is soft Will monitor GERD On Protonix History of CAD On aspirin statin and beta-cecy Hyperlipidemia On statin Hypomagnesia Replacing Follow labs Hyponatremia Sodium 132 Getting fluids Follow labs DVT prophylaxis Lovenox. Monitor platelets Disposition Telemetry Full code. 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 Patient last chemo was on 05/18/2025. He says he had couple more cycles of chemo.Following with [facility]. Since yesterday is having fevers. Nauseous. Denies any cough. Denies any abdominal pain. No diarrhea or constipation. Says appetite is okay. Denies chest pain. Denies shortness of breath. Denies headaches. Denies any body aches. Vision is okay. No runny nose or sore throat. No difficulty swallowing. Normal bowel movements. Micturating okay. Currently resting comfortably and hemodynamically stable. Past medical history. As mentioned above. Past surgical history. Left lymph node biopsy. Social history. No smoking. No alcohol use. Family history. No family history on file. Allergies Allergy/AdvReac Type Severity Reaction Status Date / Time No Known Allergies Allergy Verified 05/12/25 11:25 Home Medications Medication Instructions Recorded Confirmed Type acetaminophen 500 mg tablet 500 mg PO TID PRN Pain 01/14/25 05/28/25 History (Tylenol Extra Strength) ascorbic acid (vitamin C) 500 mg 500 mg PO DAILY 01/14/25 05/28/25 History tablet (Vitamin C) aspirin 81 mg tablet,delayed 81 mg PO DAILY 01/14/25 05/28/25 History release atorvastatin 80 mg tablet 80 mg PO DAILY 01/14/25 05/28/25 History clopidogrel 75 mg tablet (Plavix) 75 mg PO DAILY 01/14/25 05/28/25 History cyanocobalamin (vitamin B-12) 500 500 mcg PO DAILY 01/14/25 05/28/25 History mcg tablet (Vitamin B-12) glipizide 5 mg tablet 5 mg PO BID 01/14/25 05/28/25 History losartan 100 mg tablet 100 mg PO DAILY 01/14/25 05/28/25 History metformin 1,000 mg tablet 1,000 mg PO BID 01/14/25 05/28/25 History metoprolol tartrate 50 mg tablet 50 mg PO BID 01/14/25 05/28/25 History allopurinol 300 mg tablet 300 mg PO BID 04/25/25 05/28/25 History prochlorperazine maleate 10 mg 10 mg PO QID PRN NAUSEA/VOMITING 04/25/25 05/28/25 History tablet (Compazine) cefdinir 300 mg capsule 300 mg PO BID 05/28/25 05/28/25 History gabapentin 100 mg capsule 100 mg PO TID 05/28/25 05/28/25 History pantoprazole 40 mg tablet,delayed 40 mg PO DAILY 05/28/25 05/28/25 History release simethicone 80 mg chewable tablet 160 mg PO Q8 PRN hiccoughs 05/28/25 05/28/25 History sodium chloride 0.9 % 1,000 ml IV DAILY 05/28/25 05/28/25 History Past Med/Surg History Problem List (Updated 05/28/25 @ 00:07 by Background Daemon) T-cell lymphoma Traumatic ulcer of oral mucosa Fractured tooth Oral infection Odynophagia Fever and neutropenia (Acute) Neutropenia (Acute) Medical History (Updated 05/28/25 @ 00:07 by Background Daemon) Anemia Heart attack 2017 as per pt Diabetes Hypertension 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 Surgical History (Updated 04/28/25 @ 15:43 by Petra Woods RN) H/O tooth extraction (04/28/25) Extraction Tooth #16(Left) - Jace Adkins DMD History of incision and drainage (04/28/25) Left Facial Area Incision and Drainage - Jace Adkins DMD Hx of heart artery stent Hx of hand surgery Social History Smoking Status: Never smoker Tobacco Type: Declines Hx Alcohol Use: No Hx Substance Use: No Preferred Language: Danish Communication Ability: Effective Visual Impairment: No Limitations [employer] Designer Required: No Beliefs That Will Affect Care: None Current Living Situation: Other Current Living Situation Comment: [facility] Feels Safe at Home: Yes Safety Concerns: Feels Safe At This Time Assistive Devices: Glasses Review of Systems Review of Systems: All systems reviewed & are unremarkable except as noted in HPI & below Physical Exam Physical Exam: General- Not in distress Head- atraumatic Eyes- PERRL. ENT- oropharynx clear Neck- supple, no JVD. Lungs- clear to auscultation no wheezing or crackles Heart- regular rate and rhythm; no murmur, no gallop. Abdomen- normal bowel sounds, soft, nontender, no distension Extremities- no pretibial edema, no erythema seen Neuro- alert, oriented PERRL, no facial palsy; no dysarthria; moves extremities Results & Data Results & Data Vital Signs (Past 12 Hours) Vital Signs Temp Pulse Pulse Resp BP BP Pulse Ox 05/28/25 04:46 37.3 C 05/28/25 04:30 86 18 103/55 L 95 05/28/25 04:15 90 20 124/78 94 05/28/25 04:00 94 H 19 106/70 94 05/28/25 03:45 100 H 22 100/63 94 05/28/25 03:30 110 H 24 123/59 L 95 05/28/25 03:15 103 H 18 127/84 94 05/28/25 03:00 103 H 21 112/83 95 05/28/25 03:00 109 H 20 112/63 96 05/28/25 02:21 108 H 05/28/25 02:15 107 H 20 111/83 95 05/28/25 02:09 101 H 19 124/83 95 05/28/25 02:06 39.3 C H 112 H 22 124/83 95 O2 Del Method 05/28/25 04:46 05/28/25 04:30 05/28/25 04:15 05/28/25 04:00 05/28/25 03:45 05/28/25 03:30 05/28/25 03:15 05/28/25 03:00 05/28/25 03:00 Room Air 05/28/25 02:21 05/28/25 02:15 05/28/25 02:09 05/28/25 02:06 Room Air Diagnostic Findings Laboratory Results WBC 0.97 K/ul (4.8-10.8) L* 05/28/25 02:45 RBC 2.92 M/uL (4.70-6.10) L 05/28/25 02:45 Hgb 8.7 g/dl (14.0-18.0) L 05/28/25 02:45 Hct 26.2 % (42.0-52.0) L 05/28/25 02:45 MCV 89.7 fL (80.0-100.0) 05/28/25 02:45 MCH 29.8 pg (25.0-34.0) 05/28/25 02:45 MCHC 33.2 g/dL (32.0-36.0) 05/28/25 02:45 RDW Std Deviation 52.4 fL (36.4-46.3) H 05/28/25 02:45 RDW Coeff of Marguerite 16.1 % (11.5-14.5) H 05/28/25 02:45 Plt Count 110 K/uL (130-400) L 05/28/25 02:45 MPV 12.0 fL (9.4-12.4) 05/28/25 02:45 Neutrophils % (Manual) 46 % 05/28/25 02:45 Lymphocytes % (Manual) 38 % 05/28/25 02:45 Monocytes % (Manual) 10 % 05/28/25 02:45 Eosinophils % (Manual) 6 % 05/28/25 02:45 Neutrophils # (Manual) 0.45 K/uL (1.40-6.50) L 05/28/25 02:45 Total Absolute Neuts 0.45 K/uL (1.4-6.5) L* 05/28/25 02:45 Lymphocytes # (Manual) 0.37 K/uL (1.2-3.4) L 05/28/25 02:45 Total Abs Lymphocytes 0.37 K/uL (1.2-3.4) L 05/28/25 02:45 Monocytes # (Manual) 0.10 K/uL (0.11-0.59) L 05/28/25 02:45 Eosinophils # (Manual) 0.06 K/uL (0-0.50) 05/28/25 02:45 Dohle Bodies 2+ 05/28/25 02:45 PT 11.2 Seconds (9.0-12.0) 05/28/25 02:45 INR 1.0 (0.9-1.1) 05/28/25 02:45 Sodium 132 mmol/L (136-145) L 05/28/25 02:45 Potassium 3.9 mmol/L (3.5-5.1) 05/28/25 02:45 Chloride 99 mmol/L (98-107) 05/28/25 02:45 Carbon Dioxide 25 mmol/L (21-32) 05/28/25 02:45 Anion Gap 8 (3-11) 05/28/25 02:45 BUN 16 mg/dl (6-23) 05/28/25 02:45 Creatinine 0.78 mg/dl (0.6-1.4) 05/28/25 02:45 Est Cr Clr Drug Dosing 149.3 ml/min 05/28/25 02:45 eGFR 112.07 05/28/25 02:45 BUN/Creatinine Ratio 20.5 (10-20) H 05/28/25 02:45 Glucose 141 mg/dl (70-99(Fasting)) H 05/28/25 02:45 Lactate 1.0 mmol/L (0.4-2.0) 05/28/25 02:45 Calcium 9.0 mg/dl (8.6-10.3) 05/28/25 02:45 Magnesium 1.5 mg/dl (1.7-2.4) L 05/28/25 02:45 Total Bilirubin 0.6 mg/dl (0.2-1.0) 05/28/25 02:45 Direct Bilirubin 0.1 mg/dl (0-0.2) 05/28/25 02:45 AST 23 U/L (13-39) 05/28/25 02:45 ALT 18 U/L (7-52) 05/28/25 02:45 Alkaline Phosphatase 72 U/L (34-104) 05/28/25 02:45 Troponin I High Sens 18.2 pg/ml (0-20) 05/28/25 02:45 Total Protein 8.0 gm/dl (6.0-8.3) 05/28/25 02:45 Albumin 3.6 gm/dl (3.4-5.0) 05/28/25 02:45 Lipase 27 U/L (11-82) 05/28/25 02:45 Procalcitonin 0.13 ng/ml (0-0.5) 05/28/25 02:45 Impressions Chest X-Ray 05/28/25 02:22 EXAM: XR chest 1V portable CLINICAL HISTORY: Sepsis TECHNIQUE: Radiograph of chest was acquired. COMPARISON: FINDINGS: Prominent peripheral and perihilar bronchovascular markings in bilateral lung day are likely of congestive etiology, clinical correlation is recommended. Still seen right port insitu with tip in right cavoatrial junction Rest of the lungs are clear and well-expanded with no pulmonary infiltrate or pleural effusion. The cardiomediastinal silhouette is within normal limits. No acute osseous abnormality. IMPRESSION: Prominent peripheral and perihilar bronchovascular markings in bilateral lung day are likely of congestive etiology, clinical correlation is recommended. No new findings Electronically signed by Farshad Stone 05-28-2025 04:11 AM ECG Additional Comments: EKG sinus tach rate of 107. No significant changes found. Code Status & VTE Plan VTE Prophylaxis Plan VTE Prophylaxis will be ordered: Yes
[2025-05-28 06:21] LABS: Chlamydia pneumoniae PCR Not Detected (NotDetected); Coronavirus 229E PCR Not Detected (NotDetected); Coronavirus CoV-2 (COVID19)PCR Not Detected (NotDetected); Coronavirus HKU1 PCR Not Detected (NotDetected); Coronavirus NL63 PCR Not Detected (NotDetected); Coronavirus OC43PCR Not Detected (NotDetected); Human Metapneumovirus PCR Not Detected (NotDetected); Parainfluenza Virus 1 PCR Not Detected (NotDetected); Parainfluenza Virus 2 PCR Not Detected (NotDetected); Parainfluenza Virus 3 PCR Not Detected (NotDetected); Parainfluenza Virus 4 PCR Not Detected (NotDetected); Respiratory Syncytial VirusPCR Not Detected (NotDetected); Rhinovirus/Enterovirus PCR DETECTED (NotDetected)
[2025-05-28] MEDS ORDERED: SIMETHICONE 80 MG CHEW PO PRN (06:32)
[2025-05-28] MEDS ORDERED: CARBOHYDRATES FOR HYPOGLYCEMIA PO PRN (06:32)
[2025-05-28] MEDS ORDERED: GLUCOSE 40% GEL 15 GM TUBE PO PRN (06:32)
[2025-05-28] MEDS ORDERED: DEXTROSE 50% 50 ML SYRINGE IV PRN (06:32)
[2025-05-28] MEDS ORDERED: GLUCAGON FOR INJ 1 MG VIAL SQ PRN (06:32)
[2025-05-28] MEDS ORDERED: NITROGLYCERIN SL 0.4 MG/TAB TAB SL PRN (06:32)
[2025-05-28] MEDS ORDERED: GLUCOSE 10 TAB/TUBE PO PRN (06:32)
[2025-05-28] MEDS: MAGNESIUM SULFATE / D5W 1 GM/100 ML BAG IV SCH (06:38)
--- NOTE | 2025-05-28 07:26 | CT Scan Report ---
EXAM: CT chest diagnostic wo con CLINICAL HISTORY: febrile neutropenia. Pnum[place]? on cxr TECHNIQUE: Contiguous axial images were obtained from the neck base through the upper abdomen without contrast. In addition, sagittal and coronal reconstructions were performed to potentially increase the sensitivity for the detection of disease. CT scan was performed according to ALARA (as low as reasonable achievable). COMPARISON: 18:54:59 CMM INSPECTOR . FINDINGS: Stable subpleural nodule of size 5mm seen in posterior basal segment of right lower lobe. The lungs are clear, with no focal areas of consolidation. The central airways are patent. There are no pleural effusions. No pneumothorax is seen. Evaluation of the mediastinum and alissa is limited due to the lack of intravenous contrast. No axillary or mediastinal adenopathy is identified. The thyroid is unremarkable. The heart, aorta, and pulmonary arteries are of normal size and configuration. There are no appreciable coronary artery and aortic atherosclerotic calcifications. No pericardial effusion is identified. Imaged portions of the upper abdomen are unremarkable. No aggressive appearing osseous lesions are identified. IMPRESSION: Stable subpleural nodule of size 5mm seen in posterior basal segment of right lower lobe. No other significant abnormality detected No other new interval abnormality since prior study. Electronically signed by Farshad Stone 05-28-2025 07:26 AM
[2025-05-28 07:31] LABS: Hematocrit (blood only) 24.8 % (42.0-52.0); Hemoglobin 8.0 g/dl (14.0-18.0); Mean Corpuscular Hemoglobin 29.5 pg (25.0-34.0); Mean Corpuscular Volume 91.5 fL (80.0-100.0); RDW Standard Deviation 54.3 fL (36.4-46.3); Red Blood Count 2.71 M/uL (4.70-6.10); White Blood Count 1.01 K/ul (4.8-10.8)
[2025-05-28 07:37] LABS: Hemoglobin A1C 7.5 % (4.5-5.6)
[2025-05-28 07:38] LABS: Anion Gap 5.0 (3-11); Blood Urea Nitrogen 14.0 mg/dl (6-23); Calcium 8.2 mg/dl (8.6-10.3); Carbon Dioxide 25.0 mmol/L (21-32); Chloride 106.0 mmol/L (98-107); Creatinine Clr Calc Pharmacy 177.6 ml/min; Glucose 123.0 mg/dl (70-99(Fasting)); Magnesium 1.6 mg/dl (1.7-2.4); Potassium 3.5 mmol/L (3.5-5.1); Sodium 136.0 mmol/L (136-145)
[2025-05-28 08:01] LABS: Platelet Count 95 K/uL (130-400)
[2025-05-28] MEDS: ENOXAPARIN INJ 40 MG/0.4 ML SYR SQ SCH (08:14)
[2025-05-28] MEDS: CLOPIDOGREL BISULFATE 75 MG TAB PO SCH (08:15)
[2025-05-28] MEDS: ATORVASTATIN 40 MG TAB PO SCH (08:15)
[2025-05-28] MEDS: ASCORBIC ACID 500 MG TAB PO SCH (08:15)
[2025-05-28] MEDS: ASPIRIN 81 MG ECTAB PO SCH (08:15)
[2025-05-28] MEDS: DOXYCYCLINE HYCLATE 100 MG CAP PO SCH (08:15)
[2025-05-28] MEDS: CYANOCOBALAMIN (B-12) 500 MCG TABLET PO SCH (08:15)
[2025-05-28] MEDS: GABAPENTIN 100 MG CAP PO SCH (08:15)
[2025-05-28] MEDS: MAGNESIUM SULFATE / D5W 1 GM/100 ML BAG IV STA (08:16)
[2025-05-28] MEDS: METOPROLOL TARTRATE 50 MG TAB PO SCH (08:16)
[2025-05-28 08:17] LABS: Dohle Bodies 2+; Polychromasia 1+; Target Cells 1+
[2025-05-28] MEDS: INSULIN ASPART PER UNIT CHARGE SC SCH (08:18)
[2025-05-28 08:30] LABS: Immature Granulocytes # (auto) 0.01 K/uL (0.01-0.20); Immature Granulocytes % (auto) 1.0 %
[2025-05-28] MEDS: ACETAMINOPHEN 1,000 MG/100 ML VIAL IV PRN (10:09)
[2025-05-28 11:09] LABS: Appearance Urine Clear (Clear); Bacteria Urine Automated None Seen (None Seen); Cast Urine Automated 0-2 /lpf (0-2); Epithelial Cell Urine Auto 0-2 /hpf (0-2); Glucose Urine UA Negative (Negative); RBC Urine Automated 0-2 /hpf (0-2); WBC Urine Automated 0-5 /hpf (0-5)
[2025-05-28] MEDS: VANCOMYCIN HCL 1,500 MG in SODIUM CHLORIDE 0.9% 500 ML IV SCH (12:29)
[2025-05-28] MEDS: CEFEPIME 2000MG 2,000 MG/20 ML SYR IV SCH (12:30)
--- NOTE | 2025-05-28 13:17 | Pharmacy Report ---
Pharmacy PK ABX Note - Date of Service May 28, 2025 - Assessment and Plan Assessment 44 year old M with h/o CD30 lymphoma on active chemotherapy (last received 05/18/25) ordered vancomycin + cefepime + doxycycline for neutropenic fever. PCR respiratory panel detected entero/rhinovirus. Patient was treated with vancomycin IV during recent admission in April 2025 - will utilize dosing data from that admission per levels indicated goal PK/PD targets were achieved. Pertinent microbiologic data includes: Positive MRSA Nasal Swab BC x 2 - pending Plan Vancomycin * Loading dose: 2750 mg IV x 1 * Maintenance dose: 1500 mg IV every 8 hours * Regimen is predicted to achieve target AUC/TRAVIS of 400-600 mg/L.hr Pharmacy will continue to follow and will adjust dose/frequency as necessary. Thank you. Pharmacy has transitioned to AUC monitoring for vancomycin. AUC/TRAVIS is the preferred PK/PD target and is associated with decreased risk of nephrotoxicity compared to traditional trough targets.
[2025-05-28] MEDS: BENZONATATE 100 MG CAPSULE PO SCH (21:04)
[2025-05-29] MEDS: KETOROLAC TROMETHAMINE 15 MG/ML VIAL IV ONE (03:56)
[2025-05-29 06:50] LABS: Hematocrit (blood only) 24.4 % (42.0-52.0); Hemoglobin 8.0 g/dl (14.0-18.0); Mean Corpuscular Hemoglobin 29.5 pg (25.0-34.0); Mean Corpuscular Volume 90.0 fL (80.0-100.0); Platelet Count 108 K/uL (130-400); RDW Standard Deviation 54.1 fL (36.4-46.3); Red Blood Count 2.71 M/uL (4.70-6.10); White Blood Count 1.46 K/ul (4.8-10.8)
[2025-05-29 07:20] LABS: Anion Gap 7.0 (3-11); Blood Urea Nitrogen 10.0 mg/dl (6-23); Calcium 8.4 mg/dl (8.6-10.3); Carbon Dioxide 23.0 mmol/L (21-32); Chloride 104.0 mmol/L (98-107); Creatinine Clr Calc Pharmacy 154.4 ml/min; Glucose 112.0 mg/dl (70-99(Fasting)); Magnesium 1.5 mg/dl (1.7-2.4); Potassium 3.8 mmol/L (3.5-5.1); Sodium 134.0 mmol/L (136-145)
[2025-05-29] MEDS: BACLOFEN 20 MG TAB PO PRN (09:05)
--- NOTE | 2025-05-29 11:00 | Hospitalist Progress Note ---
Date of Service May 29, 2025 Assessment & Plan (1) Fever and neutropenia: Plan: In summary, 44-year-old male coming from [facility] with past medical history significant for diabetes, hypertension, hyperlipidemia, GERD, ST elevated [place], CD30 lymphoma on chemo admitted with fever and respiratory symptoms. Patient tested positive for enterovirus. Patient's last chemo was on 05/18/2025. He follows with [facility] physician group heme/onco. Neutropenic fever Possible pneumonia no evidence on CT scanning. Empirically receiving cefepime and Vanco Doxycycline added Patient tested positive for enterovirus Will follow cultures, negative today Close monitoring CD30 positive lymphoma Pancytopenia On chemo. Last chemo 05/18/2025 WBC improved to 1.46. Hemoglobin 8..o--->8.0 this am and platelets 121--> 108 Will consult heme-onc Diabetes mellitus type II Continue to home p.o. medications Sliding scale insulin Will monitor Hypertension Continue metoprolol with holding parameters BP improved but will continue to hold losartan for now as blood pressure is soft Will monitor GERD Continue Protonix History of CAD Continue on aspirin statin and beta-cecy Hyperlipidemia Continue on statin Hypomagnesia Replacing Trend labs Hyponatremia Sodium 132--> 134 Getting fluids Follow labs DVT prophylaxis Lovenox. Monitor platelets Disposition Cont Telemetry Full code. A total of 55 minutes spent in review and care management for this patient Admission and Anticipated Discharge Date Admission Date: May 28, 2025 Subjective Chart and data reviewed, vital signs are stable. Tmax is 39.3. He is afebrile currently. He is not having rigors like he did yesterday. WBC is up to 1.46 and hemoglobin is stable. Blood cultures show no growth. He had constant hiccups this morning resolved when I saw him. Review of Systems Review of Systems: Constitutional- no fever presently; Eyes- no acute visual changes Pulmonary- pos cough, pos shortness of breath but improved Cardiac- no chest pain, no palpitations, no orthopnea, no dependent edema GI- no nausea, no vomiting, no diarrhea, no melena, no hematochezia - no dysuria, no hematuria Neuro- no headaches, no focal neurologic symptoms Psych- no anxiety, no depression Physical Exam Physical Exam: General- adult male seen at bedside with 2 security guards. Appears ill. Eyes- PERRL, EOMI, anicteric ENT- oropharynx clear Neck- supple, no JVD, no adenopathy, Lungs-diminished breath sounds in the bases, no active wheezing Heart- regular rhythm; no murmur, no gallop, no rub appreciated Abdomen- normal bowel sounds, soft, nontender, no masses or hepatosplenomegaly Extremities- no pretibial edema, no calf tenderness; peripheral pulses intact Neuro- alert, oriented x 3; PERRL, EOMI; no gross focal deficits Skin- warm & dry Results & Data Results & Data Vital Signs (Past 12 Hours) Vital Signs Temp Pulse Pulse Resp BP Pulse Ox O2 Del Method 05/29/25 10:48 37.7 C H 81 20 120/73 94 Room Air 05/29/25 07:20 37.6 C 80 18 137/82 96 Room Air 05/29/25 06:48 37.7 C H 05/29/25 05:40 95 H 05/29/25 03:19 38.0 C H 102 H 16 147/69 H 94 Room Air 05/28/25 22:58 37.0 C 76 16 118/77 93 Room Air Laboratory Results Short CBC 05/29/25 Range/Units 06:10 WBC 1.46 L (4.8-10.8) K/ul Hgb 8.0 L (14.0-18.0) g/dl Hct 24.4 L (42.0-52.0) % Plt Count 108 L (130-400) K/uL BMP 05/29/25 06:10 Sodium 134 L Potassium 3.8 Chloride 104 Carbon Dioxide 23 BUN 10 Creatinine 0.76 Glucose 112 H Calcium 8.4 L Urine 05/28/25 Range/Units Unknown Urine Color Yellow Urine Appearance Clear (Clear) Urine pH 6.5 (4.5-7.5) Ur Specific [place] 1.013 (1.000-1.030) Urine Protein Trace H (Negative) Urine Glucose (UA) Negative (Negative) Diagnostic Findings CT reviewed. Stable nodule. No infiltrates.
[2025-05-29] MEDS: MAGNESIUM SULFATE / D5W 1 GM/100 ML BAG IV ONE (11:12)
--- NOTE | 2025-05-29 15:01 | Infectious Disease Consult ---
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 Last chemo was on 05/18/25. Pt denied headache, chest pain, shortness of breath, cough, rhinorrhea, sore throat, abd pain, nausea, diarrhea, constipation, urinary symptoms. On presentation, pt was febrile to 39.3, HR 112, BP 124/83, RR 22, 95% on room air. Labs with WBC 0.97, neutrophils 450, Hb 8.7, plt 110, CMP unremark able, procal 0.13. CT chest with stable subpleural nodule, no other new/significant abnormality. BCx were obtained and he was started on vanc, cefepime, doxycycline. RPP positive for rhinovirus/enterovirus. Continued with fevers overnight. WBC increased to 1.46 today. Recommendations: - Rhinovirus/enterovirus could explain pt's fever. CT chest without consolidation and procalcitonin is low, suggesting there is likely not a bacterial pneumonia. Reasonable to continue cefepime, doxycycline for now in the setting of neutropenic fevers, but anticipate de-escalation as pt clinically improves - Follow-up blood cultures Please note that ID does not round or write notes over the weekend. If questions or concerns arise, please contact the Infectious Disease Call Center and ask to speak with the covering ID physician. Consultation Information This patient recommendation is based on a telemedicine consult request which was completed asynchronously through chart review and information provided by the primary physician. The patient was not seen or examined today. The evaluation is consultative in nature and all patient care and treatment decisions can either be accepted or rejected by the patient's primary hospital-based treating physician using their own independent medical judgment for their patient. Vehicle Sales Professional contact information: Please call [facility] Call Center [phone]. 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 Last chemo was on 05/18/25. Pt denied headache, chest pain, shortness of breath, cough, rhinorrhea, sore throat, abd pain, nausea, diarrhea, constipation, urinary symptoms. On presentation, pt was febrile to 39.3, HR 112, BP 124/83, RR 22, 95% on room air. Labs with WBC 0.97, neutrophils 450, Hb 8.7, plt 110, CMP unremarkable, procal 0.13. CT chest with stable subpleural nodule, no other new/significant abnormality. BCx were obtained and he was started on vanc, cefepime, doxycycline. RPP positive for rhinovirus/enterovirus. Continued with fevers overnight. WBC increased to 1.46 today. Allergies Allergy/AdvReac Type Severity Reaction Status Date / Time No Known Allergies Allergy Verified 05/12/25 11:25 Home Medications Medication Instructions Recorded Confirmed Type acetaminophen 500 mg tablet 500 mg PO TID PRN Pain 01/14/25 05/28/25 History (Tylenol Extra Strength) ascorbic acid (vitamin C) 500 mg 500 mg PO DAILY 01/14/25 05/28/25 History tablet (Vitamin C) aspirin 81 mg tablet,delayed 81 mg PO DAILY 01/14/25 05/28/25 History release atorvastatin 80 mg tablet 80 mg PO DAILY 01/14/25 05/28/25 History clopidogrel 75 mg tablet (Plavix) 75 mg PO DAILY 01/14/25 05/28/25 History cyanocobalamin (vitamin B-12) 500 500 mcg PO DAILY 01/14/25 05/28/25 History mcg tablet (Vitamin B-12) glipizide 5 mg tablet 5 mg PO BID 01/14/25 05/28/25 History losartan 100 mg tablet 100 mg PO DAILY 01/14/25 05/28/25 History metformin 1,000 mg tablet 1,000 mg PO BID 01/14/25 05/28/25 History metoprolol tartrate 50 mg tablet 50 mg PO BID 01/14/25 05/28/25 History allopurinol 300 mg tablet 300 mg PO BID 04/25/25 05/28/25 History prochlorperazine maleate 10 mg 10 mg PO QID PRN NAUSEA/VOMITING 04/25/25 05/28/25 History tablet (Compazine) cefdinir 300 mg capsule 300 mg PO BID 05/28/25 05/28/25 History gabapentin 100 mg capsule 100 mg PO TID 05/28/25 05/28/25 History pantoprazole 40 mg tablet,delayed 40 mg PO DAILY 05/28/25 05/28/25 History release simethicone 80 mg chewable tablet 160 mg PO Q8 PRN hiccoughs 05/28/25 05/28/25 History sodium chloride 0.9 % 1,000 ml IV DAILY 05/28/25 05/28/25 History Patient History Medical History Anemia Heart attack 2016 as per pt Diabetes Hypertension 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 Surgical History H/O tooth extraction (04/28/25) Extraction Tooth #16(Left) - Jace Adkins DMD History of incision and drainage (04/28/25) Left Facial Area Incision and Drainage - Jace Adkins DMD Hx of heart artery stent Hx of hand surgery Social History Smoking Status: Never smoker Tobacco Type: Declines Hx Alcohol Use: No Hx Substance Use: No Preferred Language: Tongan Communication Ability: Effective Visual Impairment: No Limitations Director Sales And Marketing Required: No Beliefs That Will Affect Care: None Current Living Situation: Other Current Living Situation Comment: [facility]man Feels Safe at Home: Yes Safety Concerns: Feels Safe At This Time Assistive Devices: Glasses Results & Data Vital Signs (Past 12 Hours) Vital Signs Temp Pulse Pulse Resp BP Pulse Ox O2 Del Method 05/29/25 13:00 85 05/29/25 10:48 37.7 C H 81 20 120/73 94 Room Air 05/29/25 07:20 37.6 C 80 18 137/82 96 Room Air 05/29/25 06:48 37.7 C H 05/29/25 05:40 95 H 05/29/25 03:19 38.0 C H 102 H 16 147/69 H 94 Room Air Laboratory Results Short CBC 05/29/25 Range/Units 06:10 WBC 1.46 L (4.8-10.8) K/ul Hgb 8.0 L (14.0-18.0) g/dl Hct 24.4 L (42.0-52.0) % Plt Count 108 L (130-400) K/uL BMP 05/29/25 06:10 Sodium 134 L Potassium 3.8 Chloride 104 Carbon Dioxide 23 BUN 10 Creatinine 0.76 Glucose 112 H Calcium 8.4 L Diagnostic Findings Chest X-Ray 05/28/25 02:22 EXAM: XR chest 1V portable CLINICAL HISTORY: Sepsis TECHNIQUE: Radiograph of chest was acquired. COMPARISON: FINDINGS: Prominent peripheral and perihilar bronchovascular markings in bilateral lung day are likely of congestive etiology, clinical correlation is recommended. Still seen right port insitu with tip in right cavoatrial junction Rest of the lungs are clear and well-expanded with no pulmonary infiltrate or pleural effusion. The cardiomediastinal silhouette is within normal limits. No acute osseous abnormality. IMPRESSION: Prominent peripheral and perihilar bronchovascular markings in bilateral lung day are likely of congestive etiology, clinical correlation is recommended. No new findings Electronically signed by Farshad Stone 05-28-2025 04:[address] 05/28/25 05:21 EXAM: CT chest diagnostic wo con CLINICAL HISTORY: febrile neutropenia. Pnumonia? on cxr TECHNIQUE: Contiguous axial images were obtained from the neck base through the upper abdomen without contrast. In addition, sagittal and coronal reconstructions were performed to potentially increase the sensitivity for the detection of disease. CT scan was performed according to ALARA (as low as reasonable achievable). COMPARISON: 18:54:59 ICHTHYOLOGIST . FINDINGS: Stable subpleural nodule of size 5mm seen in posterior basal segment of right lower lobe. The lungs are clear, with no focal areas of consolidation. The central airways are patent. There are no pleural effusions. No pneumothorax is seen. Evaluation of the mediastinum and alissa is limited due to the lack of intravenous contrast. No axillary or mediastinal adenopathy is identified. The thyroid is unremarkable. The heart, aorta, and pulmonary arteries are of normal size and configuration. There are no appreciable coronary artery and aortic atherosclerotic calcifications. No pericardial effusion is identified. Imaged portions of the upper abdomen are unremarkable. No aggressive appearing osseous lesions are identified. IMPRESSION: Stable subpleural nodule of size 5mm seen in posterior basal segment of right lower lobe. No other significant abnormality detected No other new interval abnormality since prior study. Electronically signed by Farshad Stone 05-28-2025 07:26 AM Medications Administered Current Inpatient Medications Allopurinol (Allopurinol 300 Mg Tab) 300 mg PO BID YOLETTE Stop: 06/27/25 08:59 Last Admin: 05/29/25 09:06 Dose: 300 mg Ascorbic Acid (Ascorbic Acid 500 Mg Tab) 500 mg PO DAILY YOLETTE Stop: 06/27/25 08:59 Last Admin: 05/29/25 09:06 Dose: 500 mg Aspirin (Aspirin 81 Mg Ectab) 81 mg PO DAILY YOLETTE Stop: 06/27/25 08:59 Last Admin: 05/29/25 09:06 Dose: 81 mg Atorvastatin Calcium (Atorvastatin 40 Mg Tab) 80 mg PO DAILY YOLETTE Stop: 06/27/25 08:59 Last Admin: 05/29/25 09:05 Dose: 80 mg Baclofen (Baclofen 20 Mg Tab) 20 mg PO BID PRN PRN Reason: HICCUP Stop: 06/28/25 08:24 Last Admin: 05/29/25 09:05 Dose: 20 mg Benzonatate (Benzonatate 100 Mg Capsule) 100 mg PO TID YOLETTE Stop: 06/27/25 20:59 Last Admin: 05/29/25 14:26 Dose: 100 mg Clopidogrel Bisulfate (Clopidogrel Bisulfate 75 Mg Tab) 75 mg PO DAILY YOLETTE Stop: 06/27/25 08:59 Last Admin: 05/29/25 09:06 Dose: 75 mg Cyanocobalamin (Cyanocobalamin (B-12) 500 Mcg Tablet) 500 mcg PO DAILY YOLETTE Stop: 06/27/25 08:59 Last Admin: 05/29/25 09:07 Dose: 500 mcg Dextrose (Dextrose 50% 50 Ml Syringe) 25 - 50 ml IV UD PRN; Protocol PRN Reason: Hypoglycemia Protocol Stop: 06/27/25 06:31 Doxycycline Hyclate (Doxycycline Hyclate 100 Mg Cap) 100 mg PO BID YOLETTE Stop: 06/02/25 08:59 Last Admin: 05/29/25 09:06 Dose: 100 mg Enoxaparin Sodium (Enoxaparin Inj 40 Mg/0.4 Ml Syr) 40 mg SQ Q24H YOLETTE Stop: 06/27/25 06:59 Last Admin: 05/29/25 06:29 Dose: 40 mg Gabapentin (Gabapentin 100 Mg Cap) 100 mg PO TID YOLETTE Stop: 06/27/25 08:59 Last Admin: 05/29/25 14:27 Dose: 100 mg Glucagon (Glucagon For Inj 1 Mg Vial) 1 mg SQ UD PRN; Protocol PRN Reason: Hypoglycemia Protocol Stop: 06/27/25 06:31 Glucose (Glucose 40% Gel 15 Gm Tube) 15 - 30 gm PO UD PRN; Protocol PRN Reason: Hypoglycemia Protocol Stop: 06/27/25 06:31 Glucose (Glucose 10 Tab/Tube) 4 - 8 tab PO UD PRN; Protocol PRN Reason: Hypoglycemia Protocol Stop: 06/27/25 06:31 Cefepime HCl (Maxipime 2000mg) 2,000 mg in 20 mls @ 5 mls/min IV Q8H YOLETTE; Protocol Stop: 06/02/25 11:29 Last Admin: 05/29/25 11:46 Dose: 5 mls/min Acetaminophen (Ofirmev) 1,000 mg in 100 mls @ 400 mls/hr IV Q8H PRN PRN Reason: Pain or Fever Stop: 05/31/25 06:31 Last Infusion: 05/28/25 21:33 Dose: Infused Insulin Aspart (Insulin Aspart Per Unit Charge) 0 units SC ACHS [facility] Stop: 06/27/25 07:29 Last Admin: 05/29/25 12:39 Dose: Not Given Metoprolol Tartrate (Metoprolol Tartrate 50 Mg Tab) 50 mg PO BID [facility] Stop: 06/27/25 08:59 Last Admin: 05/29/25 09:07 Dose: 50 mg Miscellaneous (Carbohydrates For Hypoglycemia ) 15 - 30 gm PO UD PRN PRN Reason: Hypoglycemia Protocol Stop: 06/27/25 06:31 Nitroglycerin (Nitroglycerin Sl 0.4 Mg/Tab Tab) 0.4 mg SL Q5M PRN PRN Reason: Chest Pain Stop: 06/27/25 06:31 Ondansetron HCl (Ondansetron Inj 2 Mg/Ml 2 Ml Vial) 4 mg IV Q6H PRN PRN Reason: Nausea Stop: 06/27/25 06:31 Pantoprazole Sodium (Pantoprazole 40 Mg Tab) 40 mg PO DAILY YOLETTE Stop: 06/27/25 08:59 Last Admin: 05/29/25 09:07 Dose: 40 mg Simethicone (Simethicone 80 Mg Chew) 160 mg PO Q8 PRN PRN Reason: hiccoughs Stop: 06/27/25 06:31
[2025-05-29] MEDS: ACETAMINOPHEN 325 MG TAB PO PRN (16:07)
--- NOTE | 2025-05-29 17:29 | Oncology Consultation ---
Date of Consultation May 29, 2025 Assessment & Plan (1) T-cell lymphoma: Will resume outpatient care once the patient is discharged. No oncological intervention needed while the patient is admitted. Continue supportive care, broad-spectrum antibiotics. Discharged on an outpatient basis once neutrophil count is greater than 1000/microliter. Plan Thank you for this interesting oncological consult. Medical oncology will continue to follow the patient make appropriate recommendations. History of Present Illness Reason for Consultation: Neutropenia/neutropenic sepsis CD30 positive T-cell lymphoma Attending Physician: Chester Gary DO History of Present Illness Diagnosis: Anaplastic B-cell lymphoma, CD30 positive Date of diagnosis: 12/29/2024 Stage: Stage II CT of the chest abdomen pelvis, [facility], 01/15/2025: No lymphadenopathy or metastatic disease in the abdomen or pelvis. Left axillary and retropectoral lymphadenopathy, some of which have increased in size compared to prior exam. Redemonstration of left cervical lymphadenopathy including a partially imaged left level 4 mass/regino conglomerate which encases the left common carotid artery and compresses or occludes the left internal jugular vein, better evaluated on concurrently performed CT scan A few sub-6 mm pulmonary nodules, not significantly changed but still indeterminate. Bulky left cervical lymphadenopathy with gross extracapsular extension, encasement of the left common carotid artery, compression/occlusion of the left internal jugular vein, invasion of paraspinal musculature. Additional bulky ipsilateral left retropharyngeal, level 125, supraclavicular and left axillary lymph nodes. Findings are consistent with malignancy, possibly lymphoma PET CT scan: Pending Pretreatment echocardiogram, [facility], 01/16/2025: EF of 60 to 64% Treatment: BV CHP, cycle 2-day 1: 03/19/2025 BV CHP, cycle 3-day 1: 04/09/2025 The patient is a very pleasant 44-year-old man who is a resident of the correctional facility at [facility] Dr. Huynh who initially presented to [facility]. He had swelling of the left side of the throat. Subsequently a biopsy was obtained from the left neck which was positive for CD30 positive cells. He received CHOP chemotherapy in [facility]. [facility] continue his outpatient treatment. His first cycle of chemotherapy was on 01/28/2025. He also received brentuximab. Did not get a PET scan. Cancer was [id number] positive. the patient presented to [facility] from [facility] p.o on 05/28/2025 with fever and neutropenic symptoms. He was tested positive for enterovirus. Hematology has been consulted to assist in management of this patient with T-cell lymphoma currently presenting with positive adenovirus and Allergies Allergy/AdvReac Type Severity Reaction Status Date / Time No Known Allergies Allergy Verified 05/12/25 11:25 Home Medications Medication Instructions Recorded Confirmed Type acetaminophen 500 mg tablet 500 mg PO TID PRN Pain 01/14/25 05/28/25 History (Tylenol Extra Strength) ascorbic acid (vitamin C) 500 mg 500 mg PO DAILY 01/14/25 05/28/25 History tablet (Vitamin C) aspirin 81 mg tablet,delayed 81 mg PO DAILY 01/14/25 05/28/25 History release atorvastatin 80 mg tablet 80 mg PO DAILY 01/14/25 05/28/25 History clopidogrel 75 mg tablet (Plavix) 75 mg PO DAILY 01/14/25 05/28/25 History cyanocobalamin (vitamin B-12) 500 500 mcg PO DAILY 01/14/25 05/28/25 History mcg tablet (Vitamin B-12) glipizide 5 mg tablet 5 mg PO BID 01/14/25 05/28/25 History losartan 100 mg tablet 100 mg PO DAILY 01/14/25 05/28/25 History metformin 1,000 mg tablet 1,000 mg PO BID 01/14/25 05/28/25 History metoprolol tartrate 50 mg tablet 50 mg PO BID 01/14/25 05/28/25 History allopurinol 300 mg tablet 300 mg PO BID 04/25/25 05/28/25 History prochlorperazine maleate 10 mg 10 mg PO QID PRN NAUSEA/VOMITING 04/25/25 History tablet (Compazine) cefdinir 300 mg capsule 300 mg PO BID 05/28/25 05/28/25 History gabapentin 100 mg capsule 100 mg PO TID 05/28/25 05/28/25 History pantoprazole 40 mg tablet,delayed 40 mg PO DAILY 05/28/25 05/28/25 History release simethicone 80 mg chewable tablet 160 mg PO Q8 PRN hiccoughs 05/28/25 05/28/25 History sodium chloride 0.9 % 1,000 ml IV DAILY 05/28/25 05/28/25 History Patient History Medical History Anemia Heart attack 2017 as per pt Diabetes Hypertension 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 Surgical History H/O tooth extraction (04/28/25) Extraction Tooth #16(Left) - Jace Adkins DMD History of incision and drainage (04/28/25) Left Facial Area Incision and Drainage - Jace Adkins DMD Hx of heart artery stent Hx of hand surgery Social History Smoking Status: Never smoker Tobacco Type: Declines Hx Alcohol Use: No Hx Substance Use: No Preferred Language: Chilean Communication Ability: Effective Visual Impairment: No Limitations [place] Required: No Beliefs That Will Affect Care: None Current [facility]: [facility] Feels Safe at Home: Yes Safety Concerns: Feels Safe At This Time Assistive Devices: Glasses Review of Systems Review of Systems: All systems reviewed & are unremarkable except as noted in HPI & below Constitutional: as per Subjective / HPI Eyes: as per Subjective / HPI Ear, Nose, Mouth, Throat: as per Subjective / HPI Respiratory: as per Subjective / HPI Cardiovascular: as per Subjective / HPI Gastrointestinal: as per Subjective / HPI Genitourinary: + as per Subjective / HPI Musculoskeletal: as per Subjective / HPI Integumentary: as per Subjective / HPI Physical Exam Constitutional: WD/WN, vitals as above Eyes: PERRL, conjunctivae normal, anicteric sclerae ENMT: external ear and nose normal, oropharynx normal Neck: trachea midline, no thyromegaly Respiratory: normal respiratory effort, lungs clear to auscultation Cardiovascular: RRR, no murmur, no edema Gastrointestinal (Abdomen): normal bowel sounds, soft, nontender, no hepatosplenomegaly Musculoskeletal: no cyanosis or clubbing, extremities motor strength 5/5 Skin: no rashes, warm and dry Neurologic: patellar DTR's 2+ bilat, sensation intact Psychiatric: A+Ox3, euthymic affect Results & Data Vital Signs (Past 12 Hours) Vital Signs Temp Pulse Pulse Resp BP Pulse Ox O2 Del Method 05/29/25 16:41 37.8 C H 05/29/25 16:00 38.8 C H 89 18 154/62 H 96 Room Air 05/29/25 13:00 85 05/29/25 10:48 37.7 C H 81 20 120/73 94 Room Air 05/29/25 07:20 37.6 C 80 18 137/82 96 Room Air 05/29/25 06:48 37.7 C H 05/29/25 05:40 95 H
--- NOTE | 2025-05-30 05:48 | Electrocardiogram Report ---
Test Reason : Blood Pressure : */* mmHG Vent. Rate : 107 BPM Atrial Rate : 107 BPM P-R Int : 132 ms QRS Dur : 82 ms QT Int : 334 ms P-R-T Axes : 32 21 37 degrees QTcB Int : 445 ms Sinus tachycardia Otherwise normal ECG When compared with ECG of 25-Apr-2025 17:30, No significant change was found Confirmed by Brayan Anguiano ([id number]) on 05/30/2025 5:47:33 AM Referred By: [facility] Confirmed By: Brayan Anguiano
[2025-05-30 06:40] LABS: Hematocrit (blood only) 25.2 % (42.0-52.0); Hemoglobin 8.5 g/dl (14.0-18.0); Mean Corpuscular Hemoglobin 30.1 pg (25.0-34.0); Mean Corpuscular Volume 89.4 fL (80.0-100.0); Platelet Count 159 K/uL (130-400); RDW Standard Deviation 53.5 fL (36.4-46.3); Red Blood Count 2.82 M/uL (4.70-6.10); White Blood Count 1.75 K/ul (4.8-10.8)
[2025-05-30 07:10] LABS: Anion Gap 6.0 (3-11); Blood Urea Nitrogen 9.0 mg/dl (6-23); Calcium 8.6 mg/dl (8.6-10.3); Carbon Dioxide 25.0 mmol/L (21-32); Chloride 102.0 mmol/L (98-107); Creatinine Clr Calc Pharmacy 140.9 ml/min; Glucose 110.0 mg/dl (70-99(Fasting)); Magnesium 1.5 mg/dl (1.7-2.4); Potassium 3.6 mmol/L (3.5-5.1); Sodium 133.0 mmol/L (136-145)
--- NOTE | 2025-05-30 14:36 | Hospitalist Progress Note ---
Date of Service May 30, 2025 Assessment & Plan (1) Fever and neutropenia: Plan: In summary, 44-year-old male coming from [facility] with past medical history significant for diabetes, hypertension, hyperlipidemia, GERD, ST elevated NV, CD30 lymphoma on chemo admitted with fever and respiratory symptoms. Patient tested positive for enterovirus. Patient's last chemo was on 05/18/2025. He follows with [facility] physician group heme/onco. Neutropenic fever no evidence of PNA on CT scanning. Empirically receiving cefepime and Vanco Doxycycline added Patient tested positive for enterovirus Will follow cultures, negative today Close monitoring Appreciate ID consult. Recommendation is to continue antibiotics for now CD30 positive lymphoma Pancytopenia On chemo. Last chemo 05/18/2025 WBC improved to 1.75. Hemoglobin 8..o--->8.0---> 8.5 this am and platelets 121--> 108-->159 Appreciate hematology/oncology consult Diabetes mellitus type II Continue to home p.o. medications Sliding scale insulin Will monitor Hypertension Continue metoprolol with holding parameters BP improved but will continue to hold losartan for now as blood pressure is soft Will monitor GERD Continue Protonix History of CAD Continue on aspirin statin and beta-cecy Hyperlipidemia Continue on statin Hypomagnesia Replacing Trend labs Hyponatremia Sodium 132--> 134 Getting fluids Follow labs DVT prophylaxis Lovenox. Monitor platelets Disposition Cont Telemetry Full code. A total of 50 minutes spent in review and care management for this patient Admission and Anticipated Discharge Date Admission Date: May 28, 2025 Subjective Chart reviewed. vital signs are stable. Tmax is 38.9. He is afebrile currently. He is not having rigors like he did. He complains of headache this morning. WBC is up to 1.75 and hemoglobin is stable. Blood cultures show no growth. His hiccups have resolved. He denies chest pain, shortness of breath, nausea or vomiting. He is not requiring O2. The Robitussin and Tessalon Perles are helping the cough. Physical Exam Physical Exam: General- adult male seen at bedside with 2 security guards. Appears ill. Eyes- PERRL, EOMI, anicteric ENT- oropharynx clear Neck- supple, no JVD, no adenopathy, Lungs-diminished breath sounds in the bases, no active wheezing Heart- regular rhythm; no murmur, no gallop, no rub appreciated Abdomen- normal bowel sounds, soft, nontender, no masses or hepatosplenomegaly Extremities- no pretibial edema, no calf tenderness; peripheral pulses intact Neuro- alert, oriented x 3; PERRL, EOMI; no gross focal deficits Skin- warm & dry Results & Data Results & Data Vital Signs (Past 12 Hours) Vital Signs Temp Pulse Pulse Resp BP BP Pulse Ox 05/30/25 10:58 36.9 C 68 21 130/81 93 05/30/25 07:36 36.9 C 74 16 125/82 92 05/30/25 06:25 37.2 C 05/30/25 05:28 88 05/30/25 04:57 38.2 C H 05/30/25 03:22 38.9 C H 95 H 18 134/83 92 O2 Del Method 05/30/25 10:58 Room Air 05/30/25 07:36 Room Air 05/30/25 06:25 05/30/25 05:28 05/30/25 04:57 05/30/25 03:22 Room Air Laboratory Results Short CBC 05/30/25 Range/Units 06:18 WBC 1.75 L (4.8-10.8) K/ul Hgb 8.5 L (14.0-18.0) g/dl Hct 25.2 L (42.0-52.0) % Plt Count 159 (130-400) K/uL BMP 05/30/25 06:18 Sodium 133 L Potassium 3.6 Chloride 102 Carbon Dioxide 25 BUN 9 Creatinine 0.83 Glucose 110 H Calcium 8.6
[2025-05-30] MEDS: MAGNESIUM SULFATE / D5W 1 GM/100 ML BAG IV ONE (15:22)
[2025-05-30] MEDS: ONDANSETRON INJ 2 MG/ML 2 ML VIAL IV PRN (21:48)
[2025-05-31 06:14] LABS: Hematocrit (blood only) 26.3 % (42.0-52.0); Hemoglobin 9.0 g/dl (14.0-18.0); Mean Corpuscular Hemoglobin 30.1 pg (25.0-34.0); Mean Corpuscular Volume 88.0 fL (80.0-100.0); Platelet Count 201 K/uL (130-400); RDW Standard Deviation 53.1 fL (36.4-46.3); Red Blood Count 2.99 M/uL (4.70-6.10); White Blood Count 2.77 K/ul (4.8-10.8)
[2025-05-31 06:46] LABS: Anion Gap 8.0 (3-11); Blood Urea Nitrogen 10.0 mg/dl (6-23); Calcium 8.9 mg/dl (8.6-10.3); Carbon Dioxide 25.0 mmol/L (21-32); Chloride 101.0 mmol/L (98-107); Creatinine Clr Calc Pharmacy 161.8 ml/min; Glucose 108.0 mg/dl (70-99(Fasting)); Magnesium 1.7 mg/dl (1.7-2.4); Potassium 3.4 mmol/L (3.5-5.1); Sodium 134.0 mmol/L (136-145)
[2025-05-31] MEDS: POTASSIUM CHLORIDE CRTAB 20 MEQ TABCR PO STA (08:15)
--- NOTE | 2025-05-31 12:04 | Hospitalist Progress Note ---
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 Patient tested positive for enterovirus. Patient's last chemo was on 05/18/2025. He follows with [facility] physician group heme/onco. Neutropenic fever no evidence of PNA on CT scanning. Empirically receiving cefepime. Vanco discontinued Doxycycline added Patient tested positive for enterovirus Cultures negative to date Close monitoring Appreciate ID consult. Recommendation is to continue antibiotics for now. Discharge when blood count greater than 1000/microliter. Patient is still spiking temps however CD30 positive lymphoma Pancytopenia On chemo. Last chemo 05/18/2025 WBC improved to 2.77 Hemoglobin 8.0--->8.0---> 8.5-->9.0 this am and platelets normalized Appreciate hematology/oncology consult Diabetes mellitus type II Sliding scale insulin Will monitor Hypertension Continue metoprolol with holding parameters BP improved but will continue to hold losartan for now as blood pressures have been soft Will monitor GERD Continue Protonix History of CAD Continue on aspirin statin and beta-cecy Hyperlipidemia Continue on statin Hypomagnesia Replacing Trend labs Hyponatremia Sodium 132--> 134-->134 Follow labs DVT prophylaxis Lovenox. Monitor platelets Disposition Cont Telemetry Full code. Admission and Anticipated Discharge Date Admission Date: May 28, 2025 Subjective Chart reviewed. vital signs are stable. Tmax is 38.2. He is afebrile currently. He is not having rigors. Headache resolved. WBC is up to 2.77 and hemoglobin is stable. Blood cultures show no growth. His hiccups have resolved. Potassium mildly low today at 3.4. He denies chest pain, shortness of breath, nausea or vomiting. He is tolerating diet. He is not requiring O2. The Robitussin and Tessalon Perles are helping the cough. He did vomit once yesterday post coughing Physical Exam Physical Exam: General- adult male seen at bedside with 2 security guards. Making steady progress. Looks better Eyes- PERRL, EOMI, Neck- supple, no JVD, Lungs-diminished breath sounds in the bases, no active wheezing Heart- regular rhythm; no murmur, no gallop, no rub appreciated Abdomen- normal bowel sounds, soft, nontender, no masses or hepatosplenomegaly Extremities- no pretibial edema, no calf tenderness; peripheral pulses intact Neuro- alert, oriented x 3; PERRL, EOMI; no gross focal deficits Skin- warm & dry Results & Data Results & Data Vital Signs (Past 12 Hours) Vital Signs Temp Pulse Pulse Resp BP Pulse Ox O2 Del Method 05/31/25 11:14 38.2 C H 93 H 17 146/82 H 91 Room Air 05/31/25 07:08 37.2 C 76 20 138/86 99 Room Air 05/31/25 05:24 68 05/31/25 02:40 37.7 C H 80 18 113/77 95 Room Air Laboratory Results Short CBC 05/31/25 Range/Units 05:47 WBC 2.77 L (4.8-10.8) K/ul Hgb 9.0 L (14.0-18.0) g/dl Hct 26.3 L (42.0-52.0) % Plt Count 201 (130-400) K/uL BMP 05/31/25 05:47 Sodium 134 L Potassium 3.4 L Chloride 101 Carbon Dioxide 25 BUN 10 Creatinine 0.72 Glucose 108 H Calcium 8.9
[2025-05-31] MEDS ORDERED: Nursing to Pharmacy Communication SCH (15:45)
[2025-06-01 06:54] LABS: Hematocrit (blood only) 28.1 % (42.0-52.0); Hemoglobin 9.1 g/dl (14.0-18.0); Mean Corpuscular Hemoglobin 29.1 pg (25.0-34.0); Mean Corpuscular Volume 89.8 fL (80.0-100.0); Platelet Count 252 K/uL (130-400); RDW Standard Deviation 54.5 fL (36.4-46.3); Red Blood Count 3.13 M/uL (4.70-6.10); White Blood Count 3.88 K/ul (4.8-10.8)
[2025-06-01 07:14] LABS: Anion Gap 7.0 (3-11); Blood Urea Nitrogen 9.0 mg/dl (6-23); Calcium 9.1 mg/dl (8.6-10.3); Carbon Dioxide 24.0 mmol/L (21-32); Chloride 102.0 mmol/L (98-107); Creatinine Clr Calc Pharmacy 163.9 ml/min; Glucose 108.0 mg/dl (70-99(Fasting)); Magnesium 1.6 mg/dl (1.7-2.4); Potassium 3.5 mmol/L (3.5-5.1); Sodium 133.0 mmol/L (136-145)
[2025-06-01 08:29] LABS: Immature Granulocytes # (auto) 0.17 K/uL (0.01-0.20); Immature Granulocytes % (auto) 4.4 %
[2025-06-01] MEDS: MAGNESIUM SULFATE / D5W 1 GM/100 ML BAG IV SCH (09:24)
[2025-06-01] MEDS: POTASSIUM CHLORIDE CRTAB 20 MEQ TABCR PO STA (09:25)
--- NOTE | 2025-06-01 15:49 | Infectious Disease Progress Nt ---
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 Last chemo was on 05/18/25. Pt denied headache, chest pain, shortness of breath, cough, rhinorrhea, sore throat, abd pain, nausea, diarrhea, constipation, urinary symptoms. On presentation, pt was febrile to 39.3, HR 112, BP 124/83, RR 22, 95% on room air. Labs with WBC 0.97, neutrophils 450, Hb 8.7, plt 110, CMP unremarkable, procal 0.13. CT chest with stable subpleural nodule, no other new/significant abnormality. BCx were obtained and he was started on vanc, cefepime, doxycycline. RPP positive for rhinovirus/enterovirus. Continues with fevers, but neutropenia resolved. Recommendations: - Rhinovirus/enterovirus could explain pt's fever. CT chest without consol idation and procalcitonin is low, suggesting there is likely not a bacterial pneumonia. Can monitor off antibiotics Will sign off. Please re-consult ID with further concerns Admission and Anticipated Discharge Date Admission Date: May 28, 2025 Subjective This patient recommendation is based on a telemedicine consult request which was completed asynchronously through chart review and information provided by the primary physician. The patient was not seen or examined today. The evaluation is consultative in nature and all patient care and treatment decisions can either be accepted or rejected by the patient's primary hospital-based treating physician using their own independent medical judgment for their patient. Time Spent Reviewing Chart: 11 - 20 minutes No longer neutropenic Febrile to 38 this AM BCx NGTD Results & Data Vital Signs (Past 12 Hours) Vital Signs Temp Pulse Resp BP Pulse Ox O2 Del Method 06/01/25 14:45 37.6 C H 06/01/25 11:04 38.0 C H 86 20 122/74 91 Room Air 06/01/25 08:49 37.5 C 92 H 116/69 91 Room Air 06/01/25 07:44 Room Air 06/01/25 06:03 36.9 C Laboratory Results Short CBC 06/01/25 Range/Units 05:33 WBC 3.88 L (4.8-10.8) K/ul Hgb 9.1 L (14.0-18.0) g/dl Hct 28.1 L (42.0-52.0) % Plt Count 252 (130-400) K/uL BMP 06/01/25 05:33 Sodium 133 L Potassium 3.5 Chloride 102 Carbon Dioxide 24 BUN 9 Creatinine 0.71 Glucose 108 H Calcium 9.1 Medications Administered Current Inpatient Medications Acetaminophen (Acetaminophen 325 Mg Tab) 650 mg PO Q4H PRN PRN Reason: Pain or Fever Stop: 06/28/25 16:02 Last Admin: 06/01/25 14:43 Dose: 650 mg Allopurinol (Allopurinol 300 Mg Tab) 300 mg PO BID [facility] Stop: 06/27/25 08:59 Last Admin: 06/01/25 09:25 Dose: 300 mg Ascorbic Acid (Ascorbic Acid 500 Mg Tab) 500 mg PO DAILY YOLETTE Stop: 06/27/25 08:59 Last Admin: 06/01/25 09:25 Dose: 500 mg Aspirin (Aspirin 81 Mg Ectab) 81 mg PO DAILY YOLETTE Stop: 06/27/25 08:59 Last Admin: 06/01/25 09:25 Dose: 81 mg Atorvastatin Calcium (Atorvastatin 40 Mg Tab) 80 mg PO DAILY YOLETTE Stop: 06/27/25 08:59 Last Admin: 06/01/25 09:25 Dose: 80 mg Baclofen (Baclofen 20 Mg Tab) 20 mg PO BID PRN PRN Reason: HICCUP Stop: 06/28/25 08:24 Last Admin: 05/29/25 09:05 Dose: 20 mg Benzonatate (Benzonatate 100 Mg Capsule) 100 mg PO TID YOLETTE Stop: 06/27/25 20:59 Last Admin: 06/01/25 14:43 Dose: 100 mg Clopidogrel Bisulfate (Clopidogrel Bisulfate 75 Mg Tab) 75 mg PO DAILY [facility] Stop: 06/27/25 08:59 Last Admin: 06/01/25 09:25 Dose: 75 mg Cyanocobalamin (Cyanocobalamin (B-12) 500 Mcg Tablet) 500 mcg PO DAILY YOLETTE Stop: 06/27/25 08:59 Last Admin: 06/01/25 09:25 Dose: 500 mcg Dextrose (Dextrose 50% 50 Ml Syringe) 25 - 50 ml IV UD PRN; Protocol PRN Reason: Hypoglycemia Protocol Stop: 06/27/25 06:31 Enoxaparin Sodium (Enoxaparin Inj 40 Mg/0.4 Ml Syr) 40 mg SQ Q24H YOLETTE Stop: 06/27/25 06:59 Last Admin: 06/01/25 06:00 Dose: 40 mg Gabapentin (Gabapentin 100 Mg Cap) 100 mg PO TID YOLETTE Stop: 06/27/25 08:59 Last Admin: 06/01/25 14:43 Dose: 100 mg Glucagon (Glucagon For Inj 1 Mg Vial) 1 mg SQ UD PRN; Protocol PRN Reason: Hypoglycemia Protocol Stop: 06/27/25 06:31 Glucose (Glucose 40% Gel 15 Gm Tube) 15 - 30 gm PO UD PRN; Protocol PRN Reason: Hypoglycemia Protocol Stop: 06/27/25 06:31 Glucose (Glucose 10 Tab/Tube) 4 - 8 tab PO UD PRN; Protocol PRN Reason: Hypoglycemia Protocol Stop: 06/27/25 06:31 Guaifenesin/Codeine Phosphate (Guaifenesin/Codeine 100mg/10mg 5ml Udc) 10 ml PO Q6H PRN PRN Reason: Cough Stop: 06/28/25 16:12 Last Admin: 06/01/25 02:52 Dose: 10 ml Insulin Aspart (Insulin Aspart Per Unit Charge) 0 units SC ACHS YOLETTE Stop: 06/27/25 07:29 Last Admin: 06/01/25 12:14 Dose: 1 units Menthol (Cough Drop (Sugar Free) Ang 24 Ang/1 Box) 1 ang BUCCAL Q2H PRN PRN Reason: Sore Throat Stop: 07/01/25 16:09 Metoprolol Tartrate (Metoprolol Tartrate 50 Mg Tab) 50 mg PO BID YOLETTE Stop: 06/27/25 08:59 Last Admin: 06/01/25 09:25 Dose: 50 mg Miscellaneous (Carbohydrates For Hypoglycemia ) 15 - 30 gm PO UD PRN PRN Reason: Hypoglycemia Protocol Stop: 06/27/25 06:31 Nitroglycerin (Nitroglycerin Sl 0.4 Mg/Tab Tab) 0.4 mg SL Q5M PRN PRN Reason: Chest Pain Stop: 06/27/25 06:31 Ondansetron HCl (Ondansetron Inj 2 Mg/Ml 2 Ml Vial) 4 mg IV Q6H PRN PRN Reason: Nausea Stop: 06/27/25 06:31 Last Admin: 05/30/25 21:48 Dose: 4 mg Oxycodone HCl (Oxycodone Hcl Ir 5 Mg Tab (Immediate Release)) 5 mg PO Q6H PRN PRN Reason: Pain or SOLIZ Stop: 06/13/25 14:41 Pantoprazole Sodium (Pantoprazole 40 Mg Tab) 40 mg PO DAILY YOLETTE Stop: 06/27/25 08:59 Last Admin: 06/01/25 09:25 Dose: 40 mg Simethicone (Simethicone 80 Mg Chew) 160 mg PO Q8 PRN PRN Reason: hiccoughs Stop: 06/27/25 06:31
[2025-06-01] MEDS ORDERED: COUGH DROP (SUGAR FREE) LOZ 24 LOZ/1 BOX BUCCAL PRN (16:10)
--- NOTE | 2025-06-01 16:18 | Hospitalist Progress Note ---
Date of Service June 01, 2025 Assessment & Plan (1) Fever and neutropenia: Plan: Mr. 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 Patient tested positive for enterovirus. Infectious work up has been negative to date otherwise. Patient's last chemo was on 05/18/2025. Discussed case with ID: plan to discontinue abx, suspect fevers iso enterovirus infection. Neutropenia resolved #Neutropenic fever #Enterovirus infection no evidence of PNA on CT scanning. Empirically received cefepime and doxy. Vanco discontinued Patient tested positive for enterovirus Cultures negative to date Discussed with ID, given fevers despite 4 days of broad abx, suspect low grade fevers 2.2 viral process discontinued cefepime and doxy neutropenia resolved likely discharge tomorrow #CD30 positive lymphoma #Immunocompromised 2/2 chemotherapy #Pancytopenia 2/2 chemo Last chemo 05/18/2025 WBC uptrending, hgb stable #Diabetes mellitus type II Sliding scale insulin Will monitor #Hypertension Continue metoprolol with holding parameters BP improved but will continue to hold losartan for now as blood pressures have been soft Will monitor #GERD Continue Protonix #History of CAD Continue on aspirin statin and beta-cecy #Hyperlipidemia Continue on statin #Hypomagnesia Replacing Trend labs #Hyponatremia Sodium 132--> 134-->134 FR 1.8L for now follow bmp in am DVT prophylaxis Lovenox. Monitor platelets Disposition Cont Telemetry Full code. Admission and Anticipated Discharge Date Admission Date: May 28, 2025 Subjective TMAX 38C Evaluated at bedside Reports cough is bothersome, but denies any few concerns Reports that he refuses to have bowel movement in this hospital as the room is monitored Denies any urinary symptoms Physical Exam Constitutional: WD/WN, vitals as above Respiratory: normal respiratory effort, lungs clear to auscultation Cardiovascular: RRR, no murmur, no edema Gastrointestinal (Abdomen): normal bowel sounds, soft, nontender, no hepatosplenomegaly Results & Data Results & Data Vital Signs (Past 12 Hours) Vital Signs Temp Pulse Resp BP Pulse Ox O2 Del Method 06/01/25 14:45 37.6 C H 06/01/25 11:04 38.0 C H 86 20 122/74 91 Room Air 06/01/25 08:49 37.5 C 92 H 116/69 91 Room Air 06/01/25 07:44 Room Air 06/01/25 06:03 36.9 C Laboratory Results Short CBC 06/01/25 Range/Units 05:33 WBC 3.88 L (4.8-10.8) K/ul Hgb 9.1 L (14.0-18.0) g/dl Hct 28.1 L (42.0-52.0) % Plt Count 252 (130-400) K/uL BMP 06/01/25 05:33 Sodium 133 L Potassium 3.5 Chloride 102 Carbon Dioxide 24 BUN 9 Creatinine 0.71 Glucose 108 H Calcium 9.1 Medications Administered Home Medications Medication Instructions Recorded Confirmed Last Taken acetaminophen 500 mg tablet 500 mg PO TID PRN Pain 01/14/25 05/28/25 04/09/25 (Tylenol Extra Strength) ascorbic acid (vitamin C) 500 mg 500 mg PO DAILY 01/14/25 05/28/25 04/09/25 tablet (Vitamin C) aspirin 81 mg tablet,delayed 81 mg PO DAILY 01/14/25 05/28/25 04/09/25 release atorvastatin 80 mg tablet 80 mg PO DAILY 01/14/25 05/28/25 04/09/25 clopidogrel 75 mg tablet (Plavix) 75 mg PO DAILY 01/14/25 05/28/25 04/25/25 cyanocobalamin (vitamin B-12) 500 500 mcg PO DAILY 01/14/25 05/28/25 04/09/25 mcg tablet (Vitamin B-12) glipizide 5 mg tablet 5 mg PO BID 01/14/25 05/28/25 04/09/25 losartan 100 mg tablet 100 mg PO DAILY 01/14/25 05/28/25 04/14/25 metformin 1,000 mg tablet 1,000 mg PO BID 01/14/25 05/28/25 04/09/25 metoprolol tartrate 50 mg tablet 50 mg PO BID 01/14/25 05/28/25 04/09/25 allopurinol 300 mg tablet 300 mg PO BID 04/25/25 05/28/25 04/09/25 prochlorperazine maleate 10 mg 10 mg PO QID PRN NAUSEA/VOMITING 04/25/25 05/28/25 04/10/25 tablet (Compazine) cefdinir 300 mg capsule 300 mg PO BID 05/28/25 05/28/25 Unknown gabapentin 100 mg capsule 100 mg PO TID 05/28/25 05/28/25 Unknown pantoprazole 40 mg tablet,delayed 40 mg PO DAILY 05/28/25 05/28/25 Unknown release simethicone 80 mg chewable tablet 160 mg PO Q8 PRN hiccoughs 05/28/25 05/28/25 Unknown sodium chloride 0.9 % 1,000 ml IV DAILY 05/28/25 05/28/25 Unknown Active Medications Generic Name Dose Route Start Last Admin Trade Name Freq PRN Reason Stop Dose Admin Acetaminophen 650 mg 05/29/25 16:03 06/01/25 14:43 Acetaminophen 325 Mg Tab PO 06/28/25 16:02 650 mg Q4H PRN Administration Pain or Fever Allopurinol 300 mg 05/28/25 09:00 06/01/25 09:25 Allopurinol 300 Mg Tab PO 06/27/25 08:59 300 mg BID YOLETTE Administration Ascorbic Acid 500 mg 05/28/25 09:00 06/01/25 09:25 Ascorbic Acid 500 Mg Tab PO 06/27/25 08:59 500 mg DAILY YOLETTE Administration Aspirin 81 mg 05/28/25 09:00 06/01/25 09:25 Aspirin 81 Mg Ectab PO 06/27/25 08:59 81 mg DAILY YOLETTE Administration Atorvastatin Calcium 80 mg 05/28/25 09:00 06/01/25 09:25 Atorvastatin 40 Mg Tab PO 06/27/25 08:59 80 mg DAILY YOLETTE Administration Baclofen 20 mg 05/29/25 08:25 05/29/25 09:05 Baclofen 20 Mg Tab PO 06/28/25 08:24 20 mg BID PRN Administration HICCUP Benzonatate 100 mg 05/28/25 21:00 06/01/25 14:43 Benzonatate 100 Mg Capsule PO 06/27/25 20:59 100 mg TID YOLETTE Administration Clopidogrel Bisulfate 75 mg 05/28/25 09:00 06/01/25 09:25 Clopidogrel Bisulfate 75 Mg Tab PO 06/27/25 08:59 75 mg DAILY YOLETTE Administration Cyanocobalamin 500 mcg 05/28/25 09:00 06/01/25 09:25 Cyanocobalamin (B-12) 500 Mcg Tablet PO 06/27/25 08:59 500 mcg DAILY YOLETTE Administration Doxycycline Hyclate 100 mg 05/28/25 09:00 06/01/25 09:25 Doxycycline Hyclate 100 Mg Cap PO 06/02/25 08:59 100 mg BID YOLETTE Administration Enoxaparin Sodium 40 mg 05/28/25 07:00 06/01/25 06:00 Enoxaparin Inj 40 Mg/0.4 Ml Syr SQ 06/27/25 06:59 40 mg Q24H YOLETTE Administration Gabapentin 100 mg 05/28/25 09:00 06/01/25 14:43 Gabapentin 100 Mg Cap PO 06/27/25 08:59 100 mg TID YOLETTE Administration Guaifenesin/Codeine Phosphate 10 ml 05/29/25 16:13 06/01/25 02:52 Guaifenesin/Codeine 100mg/10mg 5ml Udc PO 06/28/25 16:12 10 ml Q6H PRN Administration Cough Cefepime HCl 2,000 mg in 20 mls @ 5 mls/min 05/28/25 11:30 06/01/25 12:13 Maxipime 2000mg IV 06/02/25 11:29 5 mls/min Q8H YOLETTE Administration Protocol Insulin Aspart 0 units 05/28/25 07:30 06/01/25 12:14 Insulin Aspart Per Unit Charge SC 06/27/25 07:29 1 units ACHS YOLETTE Administration Metoprolol Tartrate 50 mg 05/28/25 09:00 06/01/25 09:25 Metoprolol Tartrate 50 Mg Tab PO 06/27/25 08:59 50 mg BID YOLETTE Administration Ondansetron HCl 4 mg 05/28/25 06:32 05/30/25 21:48 Ondansetron Inj 2 Mg/Ml 2 Ml Vial IV 06/27/25 06:31 4 mg Q6H PRN Administration Nausea Pantoprazole Sodium 40 mg 05/28/25 09:00 06/01/25 09:25 Pantoprazole 40 Mg Tab PO 06/27/25 08:59 40 mg DAILY YOLETTE Administration
[2025-06-02 07:22] LABS: Hematocrit (blood only) 28.7 % (42.0-52.0); Hemoglobin 9.7 g/dl (14.0-18.0); Mean Corpuscular Hemoglobin 29.9 pg (25.0-34.0); Mean Corpuscular Volume 88.6 fL (80.0-100.0); Platelet Count 314 K/uL (130-400); RDW Standard Deviation 53.7 fL (36.4-46.3); Red Blood Count 3.24 M/uL (4.70-6.10); White Blood Count 4.30 K/ul (4.8-10.8)
[2025-06-02 08:48] LABS: Anion Gap 8.0 (3-11); Blood Urea Nitrogen 11.0 mg/dl (6-23); Calcium 9.1 mg/dl (8.6-10.3); Carbon Dioxide 23.0 mmol/L (21-32); Chloride 101.0 mmol/L (98-107); Creatinine Clr Calc Pharmacy 148.7 ml/min; Glucose 105.0 mg/dl (70-99(Fasting)); Magnesium 1.8 mg/dl (1.7-2.4); Potassium 3.9 mmol/L (3.5-5.1); Sodium 132.0 mmol/L (136-145)
[2025-06-02 09:07] VITALS: RESP 16
--- NOTE | 2025-06-02 09:46 | Discharge Summary ---
Discharge Summary Date of Service June 02, 2025 Principal Dx & Hospital Course #1 = Principal Diagnosis (1) Fever and neutropenia: Mr. Lionel Marin is a 44-year-old male coming from [facility] with past medical history significant for diabetes, hypertension, hyperlipidemia, GERD, prior STEMI, CD30 lymphoma on chemo admitted with fever and respiratory symptoms. Patient tested positive for enterovirus. Infectious work up has been negative to date otherwise. Patient's last chemo was on 05/18/2025. Patient was noted to be neutropenic s/p chemo. Infectious disease was consulted and ultimately felt fevers were secondary to enterovirus infection. Patient also noted to be relatively hypotensive therefore losartan was held. On day of discharge, patient reports he is feeling better overall but still with residual cough. #Neutropenic fever #Enterovirus infection no evidence of PNA on CT scanning. Empirically received cefepime and doxy. Vanco discontinued Patient tested positive for enterovirus Cultures negative to date Discussed with ID, given fevers despite 4 days of broad abx, suspect low grade fevers 2.2 viral process discontinued cefepime and doxy neutropenia resolved #CD30 positive lymphoma #Immunocompromised 2/2 chemotherapy #Pancytopenia 2/2 chemo Last chemo 05/18/2025 WBC uptrending, hgb stable #Diabetes mellitus type II Sliding scale insulin, resum ehome regimen #Hypertension Continue metoprolol with holding parameters hold losartan #GERD Continue Protonix #History of CAD Continue on aspirin statin and beta-cecy #Hyperlipidemia Continue on statin #Hypomagnesia reoslved #Hyponatremia Sodium 132--> 134-->134 FR 1.8L for now stable Notes For Next Care Provider Medication Changes From Visit hold losartan Admission HPI Per Admitting Provider 44-year-old male coming from [facility] with past medical history significant for diabetes, hypertension, hyperlipidemia, GERD, ST elevated [place], 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 Patient last chemo was on 05/18/2025. He says he had couple more cycles of chemo.Following with Michael Christina/onco. Since yesterday is having fevers. Nauseous. Denies any cough. Denies any abdominal pain. No diarrhea or constipation. Says appetite is okay. Denies chest pain. Denies shortness of breath. Denies headaches. Denies any body aches. Vision is okay. No runny nose or sore throat. No difficulty swallowing. Normal bowel movements. Micturating okay. Currently resting comfortably and hemodynamically stable. Past medical history. As mentioned above. Past surgical history. Left lymph node biopsy. Social history. No smoking. No alcohol use. Family history. No family history on file. Admission Exam Per Admitting Provider General- Not in distress Head- atraumatic Eyes- PERRL. ENT- oropharynx clear Neck- supple, no JVD. Lungs- clear to auscultation no wheezing or crackles Heart- regular rate and rhythm; no murmur, no gallop. Abdomen- normal bowel sounds, soft, nontender, no distension Extremities- no pretibial edema, no erythema seen Neuro- alert, oriented PERRL, no facial palsy; no dysarthria; moves extremities Discharge Exam Constitutional WD/WN, vitals as above Respiratory normal respiratory effort, lungs clear to auscultation Cardiovascular RRR, no murmur, no edema Gastrointestinal (Abdomen) normal bowel sounds, soft, nontender, no hepatosplenomegaly Updated Medication List Medication Instructions Recorded Confirmed Type acetaminophen 500 mg tablet 500 mg PO TID PRN Pain 01/14/25 05/28/25 History (Tylenol Extra Strength) ascorbic acid (vitamin C) 500 mg 500 mg PO DAILY 01/14/25 05/28/25 History tablet (Vitamin C) aspirin 81 mg tablet,delayed 81 mg PO DAILY 01/14/25 05/28/25 History release atorvastatin 80 mg tablet 80 mg PO DAILY 01/14/25 05/28/25 History clopidogrel 75 mg tablet (Plavix) 75 mg PO DAILY 01/14/25 05/28/25 History cyanocobalamin (vitamin B-12) 500 500 mcg PO DAILY 01/14/25 05/28/25 History mcg tablet (Vitamin B-12) glipizide 5 mg tablet 5 mg PO BID 01/14/25 05/28/25 History losartan 100 mg tablet 100 mg PO DAILY 01/14/25 05/28/25 History metformin 1,000 mg tablet 1,000 mg PO BID 01/14/25 05/28/25 History metoprolol tartrate 50 mg tablet 50 mg PO BID 01/14/25 05/28/25 History allopurinol 300 mg tablet 300 mg PO BID 04/25/25 05/28/25 History prochlorperazine maleate 10 mg 10 mg PO QID PRN NAUSEA/VOMITING 04/25/25 05/28/25 History tablet (Compazine) gabapentin 100 mg capsule 100 mg PO TID 05/28/25 05/28/25 History pantoprazole 40 mg tablet,delayed 40 mg PO DAILY 05/28/25 05/28/25 History release simethicone 80 mg chewable tablet 160 mg PO Q8 PRN hiccoughs 05/28/25 05/28/25 History benzonatate 100 mg capsule 100 mg PO TID 5 days #15 caps 06/02/25 Rx codeine 10 mg-guaifenesin 100 mg/5 10 ml PO Q6H PRN cough 5 days #100 06/02/25 Rx mL oral liquid (Guaifenesin AC) mL Hospital Stay Data Consultations 05/28/25 04:33 ED Decision to Admit Stat 05/28/25 08:00 Consult Oncology Routine 05/29/25 11:09 Consult Infectious Diseases Routine Diagnostic Imagining Performed 05/28/25 05:21 CT chest diagnostic wo con Urgent Discharge Instructions Given to Patient (Per Discharging Provider) You were admitted for febrile neutropenia You underwent an infectious work up and you were noted to have Enterovirus/rhinovirus infection Infectious disease evaluated you and suspect this is the source for fevers, and given improvement of your neutropenia, there is no need for further antibiotics. You can continue symptom control with cough drops, Tessalon pearles, and cough syrup Total Time Total Time Spent Total Time Spent (In Minutes): 45
[2025-06-02 10:24] VITALS: PULSE 85
[2025-06-02] MEDS: HEPARIN 100 UNIT/ML 5ML FLUSH FLUSH STA (10:57)
[2025-06-02 12:23] VITALS: BP 115/76; TEMP 98.8; O2SAT 90
== END 2025-06-02 13:03 | DRG 865 ==
LOC: ED 01:55 → SUATTDRO 05:21 → 2S 05:21